=== PATIENT | male | born 1955 | race Caucasian/White ===

== ENCOUNTER → 2016-08-03 | Outpatient (CLI) | payer MEDICARE ==
--- NOTE | 2016-08-03 10:55 | XR ---
EXAMINATION TYPE: XR foot complete LT DATE OF EXAM: 08/03/2016 COMPARISON: NONE HISTORY: 60-year-old male with pain across the top of the toes, metatarsalgia. TECHNIQUE: 3 views FINDINGS: Severe degenerative changes of the first MTP joint with loss of cartilage and joint space, bone-on-deanne ne abutment, subchondral sclerosis, and bulky marginal spurring, especially dorsally were some fragme nted spurs are also present. Small plantar calcaneal spur. Additional degenerative spurring at the ti biotalar joint. Vascular calcifications suggest underlying diabetes and chronic kidney disease. No ac momo fracture or dislocation. IMPRESSION: 1. Hallux rigidus. 2. Additional osteoarthrosis of the tibiotalar joint. 3. Small plantar calcaneal spur.
== END | disposition home or self-care (01) ==
LOC: RADXRMAIN 08:57
PROVIDERS: ATTEND Family Medicine
DX: M20.22 Hallux rigidus, left foot (principal); M19.072 Primary osteoarthritis, left ankle and foot; M77.32 Calcaneal spur, left foot

== ENCOUNTER 2017-03-01 10:22 | Emergency (ER) | payer MEDICARE ==
[2017-03-01 10:38] VITALS: BP 143/89; PULSE 66; RESP 20; TEMP 99.6
--- NOTE | 2017-03-01 11:08 | ED ---
General Adult HPI - General Chief complaint: Skin/Abscess/Foreign Body Stated complaint: Post surgery/ check wound Time Seen by Provider: 03/01/17 10:51 Source: patient, RN notes reviewed Mode of arrival: ambulatory Limitations: no limitations - History of Present Illness Initial comments: 61-year-old male who is one month post left hip repaired by Dr. Singh presents to the emergency department with a chief complaint of small pocket noted to the left hip. Patient states that he noticed that there was a swallow pus pocket that drained yesterday and then today he noticed a small area of pus again she thought that he should be seen. He denies any fever chills. Denies any specific pain to the area. He denies any history of infection to the hip. He denies any cough cold. He called his orthopedic doctor and they referred him here. He states that he is not currently having any other symptoms. No pain with movement. Patient denies any recent fever, chills, shortness of breath , chest pain, back pain, abdominal pain, nausea vomiting, numbness or tingling, dysuria or hematuria, constipation or diarrhea, headaches or visual changes, or any other current symptoms. - Related Data Home Medications Medication Instructions Recorded Confirmed Aspirin EC [Ecotrin] 325 mg PO DAILY 08/27/13 01/27/17 Atorvastatin [Lipitor] 80 mg PO HS 08/27/13 01/27/17 Lisinopril [Zestril] 5 mg PO BID 08/27/13 01/27/17 Metoprolol Tartrate [Lopressor] 25 mg PO BID 08/27/13 01/27/17 Insulin NPH Hum/Reg Insulin Hm 10 unit SQ AC-LUNCH 01/12/17 01/27/17 [NovoLIN 70-30 100 UNIT/ML VIAL] Insulin NPH Hum/Reg Insulin Hm 55 unit SQ AC-BRKFST 01/12/17 01/27/17 [NovoLIN 70-30 100 UNIT/ML VIAL] Insulin NPH Hum/Reg Insulin Hm 65 unit SQ AC-SUPPER 01/12/17 01/27/17 [NovoLIN 70-30 100 UNIT/ML VIAL] Previous Rx's Medication Instructions Recorded Cephalexin [Keflex] 500 mg PO Q6HR #40 cap 03/01/17 Sulfamethox-Tmp 800-160Mg [Bactrim 2 each PO Q12HR #56 tab 03/01/17 DS 800-160 mg] Allergies Allergy/AdvReac Type Severity Reaction Status Date / Time No Known Allergies Allergy Verified 03/01/17 10:38 Review of Systems ROS Statement: Those systems with pertinent positive or pertinent negative responses have been documented in the HPI. ROS Other: All systems not noted in ROS Statement are negative. Past Medical History Past Medical History: Diabetes Mellitus, Hyperlipidemia, Hypertension, Myocardial Infarction ([place]), Osteoarthritis (OA), Sleep Apnea/CPAP/BIPAP Additional Past Medical History / Comment(s): supposed to use CPAP Last Myocardial Infarction Date:: 2006 History of Any Multi-Drug Resistant Organisms: None Reported Past Surgical History: Heart Catheterization, Hernia Repair, Orthopedic Surgery Additional Past Surgical History / Comment(s): right total hip replacement, carpal tunnel, arthroscopy, hemorrhoidectomy, triple bypass 2006, zora fundoplasty Past Anesthesia/Blood Transfusion Reactions: Previous Problems w/ Anesthesia Additional Past Anesthesia/Blood Transfusion Reaction / Comment(s): some kind of problem w/intubation w/cabg, but has had surgery since w/no problems Past Psychological History: No Psychological Hx Reported Smoking Status: Never smoker Past Alcohol Use History: None Reported Past Drug Use History: None Reported - Past Family History Mother Family Medical History: Cancer Brother(s) Family Medical History: Cancer General Exam - General Exam Comments Initial Comments: General: The patient is awake and alert, in no distress, and does not appear acutely ill. Neck: The neck is supple, there is no tenderness. Cardiovascular: There is a regular rate and rhythm. No murmur, rub or gallop is appreciated. Respiratory: Lungs are clear to auscultation, respirations are non-labored, breath sounds are equal. No wheezes, stridor, rales, or rhonchi. Musculoskeletal: Sensation intact with 2+ pulses throughout the left lower extremity. Patient has full range of motion of the left hip. There does appear to be a small purulent area to the left hip incision. No fluctuation surrounding the area. Appears to be very superficial. No associated erythema or induration. Neurological: CN II-XII intact, There are no obvious motor or sensory deficits. Coordination appears grossly intact. Speech is normal. Skin: Skin is warm and dry and no rashes or lesions are noted. Psychiatric: Normal mood and affect. Limitations: no limitations Course Vital Signs 03/01/17 10:35 Temperature 99.6 F Pulse Rate 66 Respiratory 20 Rate Blood Pressure 143/89 O2 Sat by Pulse 97 Oximetry Medical Decision Making - Medical Decision Making 61-year-old male presents to the emergency department with a chief complaint of left hip pain. Patient does appear to have a small infection. He doesn't appear to be minor at this time. There is no associated induration. With a Q- tip the pus was removed. At this time we will start the patient on Keflex and Bactrim. A culture was sent. We discussed follow-up with his orthopedic Dr. return parameters all questions. Patient stated the Giorgio is given this plan. At this time he will be discharged home. Disposition Clinical Impression: Superficial incisional surgical site infection Disposition: HOME SELF-CARE Condition: Stable Instructions: Surgical Site Infections (ED) Additional Instructions: Please use medication as discussed. Please follow up with family doctor if symptoms have not improved over the next two days. Please return to the emergency room if your symptoms increase or worsen or for any other concerns. Prescriptions: Cephalexin [Keflex] 500 mg PO Q6HR #40 cap Sulfamethox-Tmp 800-160Mg [Bactrim DS 800-160 mg] 2 each PO Q12HR #56 tab Referrals: Nathan Ta DO [Primary Care Provider] - 1-2 days Time of Disposition: 11:07
== END 2017-03-01 11:26 | disposition home or self-care (01) ==
LOC: EC 10:22
DX: T81.4XXA Infection following a procedure, initial encounter (principal); E11.9 Type 2 diabetes mellitus without complications; E78.5 Hyperlipidemia, unspecified; I10 Essential (primary) hypertension; I25.2 Old myocardial infarction; G47.30 Sleep apnea, unspecified; Z99.89 Dependence on other enabling machines and devices; Z79.4 Long term (current) use of insulin; Z79.82 Long term (current) use of aspirin; Z79.899 Other long term (current) drug therapy; Z96.641 Presence of right artificial hip joint; Z98.890 Other specified postprocedural states
CPT/HCPCS: 87070; 87077; 87186; 87205; 99283

== ENCOUNTER → 2018-01-17 | Outpatient (CLI) | payer MEDICARE ==
--- NOTE | 2018-01-17 11:43 | XR ---
EXAMINATION TYPE: XR chest 2V DATE OF EXAM: 01/17/2018 COMPARISON: Chest x-ray August 22, 2013. HISTORY: Dyspnea and shortness of breath. TECHNIQUE: Frontal and lateral views of the chest are obtained. FINDINGS: Left basilar opacity remains present. Overlying sternal wires and mediastinal clips are re demonstrated. There is no new suspicious focal air space opacity or pneumothorax seen. New small to t iny bilateral pleural effusions are appreciated best on lateral view with blunting of bilateral poste rior costophrenic angles The cardiac silhouette size remains within normal limits. Epicardial pacer w ires are redemonstrated seen best on lateral view. The osseous structures are intact. IMPRESSION: Chronic left basilar scarring and/or atelectasis, new small to tiny bilateral pleural ef fusions noted.
== END | disposition home or self-care (01) ==
LOC: RADXRMAIN 11:08
PROVIDERS: ATTEND Family Medicine
DX: J98.4 Other disorders of lung (principal); R06.02 Shortness of breath; R60.9 Edema, unspecified; I25.10 Atherosclerotic heart disease of native coronary artery without angina pectoris
CPT/HCPCS: 71046

== ENCOUNTER 2018-02-06 11:27 | Inpatient (IN) | payer MEDICARE ==
[2018-02-06] MEDS ORDERED: SODIUM CHLORIDE 0.9% 500 ML 500 ML IV STA (11:37)
--- NOTE | 2018-02-06 11:45 | ED ---
General Adult HPI - General Stated complaint: facial droop, slurred speech Time Seen by Provider: 02/06/18 11:30 Source: RN notes reviewed - History of Present Illness Initial comments: This is a 62-year-old male who presents emergency department with past medical history significant for diabetes hypertension or previous bypass surgery. Patient comes in today because he started experiencing slurred speech and left- sided facial droop approximate half hour prior to arrival. Patient denies any focal weakness or numbness. Patient patient states the last 2 weeks he has been dealing with a headache but is no different today. Patient denies any difficulty ambulating. Patient denies any chest pain palpitations difficulty breathing. Patient denies any back pain. Patient has no abdominal pain he denies any nausea or vomiting. Patient denies any recent fever chills or cough. - Related Data Home Medications Medication Instructions Recorded Confirmed Aspirin EC [Ecotrin] 325 mg PO BID 08/27/13 02/06/18 Atorvastatin [Lipitor] 80 mg PO HS 08/27/13 02/06/18 Metoprolol Tartrate [Lopressor] 25 mg PO BID 08/27/13 02/06/18 Insulin NPH Hum/Reg Insulin Hm 20 unit SQ AC-LUNCH 01/12/17 02/06/18 [NovoLIN 70-30 100 UNIT/ML VIAL] Insulin NPH Hum/Reg Insulin Hm 60 unit SQ AC-BRKFST 01/12/17 02/06/18 [NovoLIN 70-30 100 UNIT/ML VIAL] Insulin NPH Hum/Reg Insulin Hm 60 unit SQ AC-SUPPER 01/12/17 02/06/18 [NovoLIN 70-30 100 UNIT/ML VIAL] Lisinopril [Zestril] 10 mg PO BID 03/01/17 02/06/18 Furosemide [Lasix] 40 mg PO DAILY 02/06/18 02/06/18 Allergies Allergy/AdvReac Type Severity Reaction Status Date / Time No Known Allergies Allergy Verified 02/06/18 12:03 Review of Systems ROS Statement: Those systems with pertinent positive or pertinent negative responses have been documented in the HPI. ROS Other: All systems not noted in ROS Statement are negative. Past Medical History Past Medical History: Diabetes Mellitus, Hyperlipidemia, Hypertension, Myocardial Infarction ([place]), Osteoarthritis (OA), Sleep Apnea/CPAP/BIPAP Additional Past Medical History / Comment(s): supposed to use CPAP Last Myocardial Infarction Date:: 2006 History of Any Multi-Drug Resistant Organisms: None Reported Past Surgical History: Heart Catheterization, Hernia Repair, Orthopedic Surgery Additional Past Surgical History / Comment(s): right total hip replacement, carpal tunnel, arthroscopy, hemorrhoidectomy, triple bypass 2006, zora fundoplasty Past Anesthesia/Blood Transfusion Reactions: Previous Problems w/ Anesthesia Additional Past Anesthesia/Blood Transfusion Reaction / Comment(s): some kind of problem w/intubation w/cabg, but has had surgery since w/no problems Past Psychological History: No Psychological Hx Reported Smoking Status: Never smoker Past Alcohol Use History: None Reported Past Drug Use History: None Reported - Past Family History Mother Family Medical History: Cancer Brother(s) Family Medical History: Cancer General Exam - General Exam Comments Initial Comments: GENERAL: Patient is well-developed and well-nourished. Patient is nontoxic and well- hydrated and is in mild distress. ENT: Neck is soft and supple. No significant lymphadenopathy is noted. Oropharynx is clear. Moist mucous membranes. Neck has full range of motion without eliciting any pain. EYES: The sclera were anicteric and conjunctiva were pink and moist. Extraocular movements were intact and pupils were equal round and reactive to light. Eyelids were unremarkable. PULMONARY: Unlabored respirations. Good breath sounds bilaterally. No audible rales rhonchi or wheezing was noted. CARDIOVASCULAR: There is a regular rate and rhythm without any murmurs gallops or rubs. Bilateral DP pulses equal ABDOMEN: Soft and nontender with normal bowel sounds. No palpable organomegaly was noted. There is no palpable pulsatile mass. SKIN: Skin is clear with no lesions or rashes and otherwise unremarkable. NEUROLOGIC: Patient is alert and oriented x3. Patient has some left-sided facial droop and slight slurred speech though it seems to resolve while talking to him. However the facial droop remains per patient has no focal weakness in either arm or leg and no decreased sensation. Patient's cerebellar testing finger to nose was normal bilaterally. MUSCULOSKELETAL: Normal extremities with adequate strength and full range of motion. No lower extremity swelling or edema. No calf tenderness. LYMPHATICS: No significant lymphadenopathy is noted PSYCHIATRIC: Normal psychiatric evaluation. Course Vital Signs 02/06/18 11:52 Temperature 98.1 F Pulse Rate 59 L Respiratory 18 Rate Blood Pressure 177/95 O2 Sat by Pulse 98 Oximetry Medical Decision Making - Medical Decision Making EKG shows a sinus rhythm at 59 bpm TN interval is 316 QRS is 96 Q-T intervals 410 QTC is 45. Patient's EKG shows no ST segment elevation or depression. I called a code stroke symptoms I saw the patient. I spoke with the neuro interventional states he reviewed the CT of the brain and CTA and did not believe TPA was indicated he just wanted aspirin and Plavix. Patient's CT of the brain shows no acute abnormality. CTA was reviewed by the neuro interventional states this point and he did not see any significant stenosis. Neuro interventional is was Dr. Keane I spoke with Dr. Shaq New agreed to admit the patient admitted the patient I consult the neurology I continue aspirin and Plavix on the floor After the patient was admitted I was called back into the room because the patient was having some slight weird sensation to his left eye when I evaluated him he was unable to close it as firmly as his right eye. 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 - Lab Data Result diagrams: 02/06/18 11:40 02/06/18 11:40 Lab Results 02/06/18 02/06/18 02/06/18 Range/Units 11:40 11:40 11:40 WBC 8.0 (3.8-10.6) k/uL RBC 4.96 (4.30-5.90) m/uL Hgb 14.8 (13.0-17.5) gm/dL Hct 44.7 (39.0-53.0) % MCV 90.1 (80.0-100.0) fL MCH 29.8 (25.0-35.0) pg MCHC 33.0 (31.0-37.0) g/dL RDW 12.9 (11.5-15.5) % Plt Count 261 (150-450) k/uL Neutrophils % 58 % Lymphocytes % 28 % Monocytes % 6 % Eosinophils % 6 % Basophils % 1 % Neutrophils # 4.6 (1.3-7.7) k/uL Lymphocytes # 2.2 (1.0-4.8) k/uL Monocytes # 0.5 (0-1.0) k/uL Eosinophils # 0.5 (0-0.7) k/uL Basophils # 0.1 (0-0.2) k/uL PT (9.0-12.0) sec INR (<1.2) APTT (22.0-30.0) sec Sodium 141 (137-145) mmol/L Potassium 4.5 (3.5-5.1) mmol/L Chloride 108 H (98-107) mmol/L Carbon Dioxide 22 (22-30) mmol/L Anion Gap 11 mmol/L BUN 21 H (9-20) mg/dL Creatinine 0.69 (0.66-1.25) mg/dL Est GFR (CKD-EPI)AfAm >90 (>60 ml/min/1.73 sqM) Est GFR (CKD-EPI)NonAf >90 (>60 ml/min/1.73 sqM) Glucose 216 H (74-99) mg/dL Calcium 9.6 (8.4-10.2) mg/dL Total Bilirubin 0.8 (0.2-1.3) mg/dL AST 26 (17-59) U/L ALT 22 (21-72) U/L Alkaline Phosphatase 87 (38-126) U/L Total Creatine Kinase 113 (55-170) U/L CK-MB (CK-2) 2.0 (0.0-2.4) ng/mL CK-MB (CK-2) Rel Index 1.8 Troponin I <0.012 (0.000-0.034) ng/mL Total Protein 7.6 (6.3-8.2) g/dL Albumin 4.2 (3.5-5.0) g/dL 02/06/18 Range/Units 11:40 WBC (3.8-10.6) k/uL RBC (4.30-5.90) m/uL Hgb (13.0-17.5) gm/dL Hct (39.0-53.0) % MCV (80.0-100.0) fL MCH (25.0-35.0) pg MCHC (31.0-37.0) g/dL RDW (11.5-15.5) % Plt Count (150-450) k/uL Neutrophils % % Lymphocytes % % Monocytes % % Eosinophils % % Basophils % % Neutrophils # (1.3-7.7) k/uL Lymphocytes # (1.0-4.8) k/uL Monocytes # (0-1.0) k/uL Eosinophils # (0-0.7) k/uL Basophils # (0-0.2) k/uL PT 9.7 (9.0-12.0) sec INR 0.9 (<1.2) APTT 23.4 (22.0-30.0) sec Sodium (137-145) mmol/L Potassium (3.5-5.1) mmol/L Chloride (98-107) mmol/L Carbon Dioxide (22-30) mmol/L Anion Gap mmol/L BUN (9-20) mg/dL Creatinine (0.66-1.25) mg/dL Est GFR (CKD-EPI)AfAm (>60 ml/min/1.73 sqM) Est GFR (CKD-EPI)NonAf (>60 ml/min/1.73 sqM) Glucose (74-99) mg/dL Calcium (8.4-10.2) mg/dL Total Bilirubin (0.2-1.3) mg/dL AST (17-59) U/L ALT (21-72) U/L Alkaline Phosphatase (38-126) U/L Total Creatine Kinase (55-170) U/L CK-MB (CK-2) (0.0-2.4) ng/mL CK-MB (CK-2) Rel Index Troponin I (0.000-0.034) ng/mL Total Protein (6.3-8.2) g/dL Albumin (3.5-5.0) g/dL Disposition Clinical Impression: Cerebrovascular accident Disposition: ADMITTED IP TO THIS HOSP Referrals: Nathan Ta DO [Primary Care Provider] - 1-2 days Time of Disposition: 12:45
--- NOTE | 2018-02-06 12:10 | XR ---
EXAMINATION TYPE: XR chest 2V DATE OF EXAM: 02/06/2018 COMPARISON: 01/17/2018 INDICATION: Altered mental status TECHNIQUE: Frontal and lateral views of the chest are obtained. FINDINGS: The heart size is normal. The pulmonary vasculature is normal. Some streak atelectasis is at the left base. Lungs otherwise appear clear. Prior CABG is evident. IMPRESSION: 1. Mild streak atelectasis left lung base
--- NOTE | 2018-02-06 12:17 | CT ---
EXAMINATION TYPE: CT brain wo con for TPA DATE OF EXAM: 02/06/2018 COMPARISON: None INDICATION: Facial droop, slurred speech DLP: 1158 mGycm, Automated exposure control for dose reduction was used. CONTRAST: None CT of the brain is performed utilizing 3 mm thick sections through the posterior fossa and 3 mm thick sections through the remaining calvarium. Study is performed within 24 hours of arrival to the hosp ital. No abnormal hyperdensity is present to suggest an acute intracranial hemorrhage. No mass lesion is evident. No acute infarcts are evident. Ventricles and sulci are appropriate for the patient age. Paranasal sinuses and mastoid air cells within the [id number] are clear. IMPRESSIONS: 1. No acute intracranial process.
[2018-02-06 12:18] LABS: Basophils # (A) 0.1 k/uL (0-0.2); Basophils % (A) 1 %; Eosinophils # (A) 0.5 k/uL (0-0.7); Eosinophils % (A) 6 %; HCT 44.7 % (39.0-53.0); HGB 14.8 gm/dL (13.0-17.5); Lymphocytes # (A) 2.2 k/uL (1.0-4.8); Lymphocytes % (A) 28 %; MCH 29.8 pg (25.0-35.0); MCV 90.1 fL (80.0-100.0); Mean Platelet Volume 7.1; Monocytes # (A) 0.5 k/uL (0-1.0); Monocytes % (A) 6 %; Neutrophils # (A) 4.6 k/uL (1.3-7.7); Neutrophils % (A) 58 %; Platelet Count 261 k/uL (150-450); RBC 4.96 m/uL (4.30-5.90); RDW 12.9 % (11.5-15.5)
[2018-02-06 12:35] LABS: ALT 22 U/L (21-72); AST 26 U/L (17-59); Albumin 4.2 g/dL (3.5-5.0); Alkaline Phosphatase 87 U/L (38-126); Anion Gap 11 mmol/L; Blood Urea Nitrogen 21 mg/dL (9-20); Calcium 9.6 mg/dL (8.4-10.2); Carbon Dioxide 22 mmol/L (22-30); Chloride 108 mmol/L (98-107); Glucose 216 mg/dL (74-99); Potassium 4.5 mmol/L (3.5-5.1); Sodium 141 mmol/L (137-145); Total Bilirubin 0.8 mg/dL (0.2-1.3); Total Protein 7.6 g/dL (6.3-8.2)
[2018-02-06 12:36] LABS: Creatine Kinase 113 U/L (55-170); INR 0.9 (<1.2); Partial Thromboplastin Time 23.4 sec (22.0-30.0); Prothrombin Time 9.7 sec (9.0-12.0)
[2018-02-06] MEDS ORDERED: CLOPIDOGREL 75 MG TAB PO STA (12:47)
[2018-02-06 12:49] LABS: Troponin I <0.012 ng/mL (0.000-0.034)
--- NOTE | 2018-02-06 12:59 | CT ---
EXAMINATION TYPE: CT angio head neck DATE OF EXAM: 02/06/2018 12:41 PM COMPARISON: HISTORY: CODE STROKE, facial droop and slurred speech CT DLP: 568 mGycm Automated exposure control for dose reduction was used. TECHNIQUE: Performed without and with IV Contrast, patient injected with 65 mL of Isovue 370. Three-D reconstructed images on a separate computer by the technologist are presented.. FINDINGS: Coronary artery calcification is noted. Portions of the thyroid visualized normal. Subglottic airway is unremarkable. Parapharyngeal spaces are normal. Left vertebral artery appears normal. Right vertebral artery is not identified. Carotid bifurcations: Atheromatous plaquing with calcification is at the bilateral carotid bifurcatio ns. No significant flow-limiting stenosis of the right internal carotid arteries evident. Atheromatou s plaquing is present in the left common carotid artery bifurcation without significant stenosis. [place]: Internal carotid arteries bifurcate into A1 and M1 segments. The A2 segments proxim ally appear unremarkable. Right posterior communicating artery is patent. A left posterior communicat ing artery appears to be patent as well. Anterior communicating artery appears to be present. On the source images the distal right vertebral artery is patent. The vertebral artery within the right fora men however is not patent. IMPRESSION: 1. NO FLOW-LIMITING STENOSIS BILATERAL CAROTID BIFURCATION. 2. [place] WITHIN NORMAL LIMITS. 3. PROXIMAL OBSTRUCTION OF THE RIGHT VERTEBRAL ARTERY. DISTAL RIGHT VERTEBRAL ARTERY IS PATENT WITHIN THE CALVARIUM BUT IS NOT IDENTIFIED WITHIN THE CERVICAL VERTEBRAL FORAMEN.
[2018-02-06] MEDS: ASPIRIN 325 MG TAB PO STA ×2 (13:14→14:11)
[2018-02-06 15:37] LABS: Glucose,Whole Blood 89 mg/dL (75-99)
[2018-02-06 16:13] LABS: Glucose,Whole Blood 224 mg/dL (75-99)
[2018-02-06] MEDS: valACYclovir HCL 1,000 MG TABLET PO SCH (19:02)
[2018-02-06] MEDS: INSULIN ASPART 100 UNIT/ML 1 ML 10 ML VIAL SQ SCH (20:12)
--- NOTE | 2018-02-06 20:15 | P.CNNES ---
History of Present Illness Consult date: 02/06/18 Reason for Consult: Patient admitted with left facial droop and slurred speech, possible stroke History of Present Illness: This patient is a 62-year-old right-handed white male who was in his usual state of health early this morning. He was out with his daughter and apparently while sitting at a dining [place] his daughter noticed suddenly that he developed left-sided facial droop. She was very concerned as his speech was also giving him great deal of difficulty knee was having word finding difficulties. He was also complaining of a headache which he had been dealing with for the past 2 weeks. Daughter was very concerned and decided to bring him directly to the emergency room at [facility] for further evaluation. He was seen in the ER by Dr. Lopez. He was sent for a computed tomography scan of the brain as well as a CTA angiogram of the head and neck. A code stroke was initiated in the ER by Dr. Lopez. The CT scan of the brain revealed no acute intracranial process. CTA angiogram of the head and neck revealed no evidence of significant stenosis in the carotid bifurcation. [place] was normal limits. Question of right vertebral artery obstruction was noted. Dr. Lopez did contact the neuro interventional is Dr. Keane regarding possible TPA intervention. Dr. Keane did review this CT of the brain and CTA angiogram of the head and neck and it was decided the patient was not a candidate for TPA. He was recommended to start on Plavix and aspirin and admitted for a full stroke evaluation. The patient has multiple stroke risk factors including uncontrolled hypertension and uncontrolled diabetes mellitus. His most recent hemoglobin A1c was noted to be 13.7. He is on insulin therapy. He states his cholesterol is also been elevated and he is taking Lipitor 80 mg daily. The patient's symptoms of facial droop seem to improve in the ER. He did notice some difficulty with his left eyelid not closing properly but this has also improved since admission. Dr. Lopez was also considering possibility of early Pollard's palsy and was considering possibly to start Valtrex with the patient. Since his symptoms are not strongly suggesting Pollard's palsy at this time we would recommend a hold a Valtrex. We have recommended the patient undergo a complete stroke evaluation. He should be maintained on Plavix and aspirin for secondary stroke prevention. We will check his stroke risk factors including his diabetes and hyperlipidemia. His blood pressure also has been running on the high side of normal and we would recommend a cardiology consultation for him. Apparently he is scheduled to see Dr. José in the outpatient cardiology clinic for a stress test next week. We will continue to follow his progress closely during this admission. His symptoms of left-sided facial droop and slurred speech seem to have improved however daughter still feels his speech is not his normal baseline. We have recommended the patient to undergo MRI of the brain for further evaluation of possible stroke. According to the daughter he may not be able to have an MRI as he has some chest leads in his history of having and cardiac bypass surgery in the past. We have asked the nursing staff to contact MRI to see if he is compatible to go for MRI of the brain for further assessment of stroke. The patient otherwise seems to be doing well this evening. We will continue close monitoring of his condition. Neurology is now been consulted for further evaluation and recommendations. Review of Systems Constitutional: Denies chills, Denies fever Eyes: denies blurred vision, denies pain Ears, nose, mouth and throat: Denies headache, Denies sore throat Cardiovascular: Denies chest pain, Denies shortness of breath Respiratory: Denies cough Gastrointestinal: Denies abdominal pain, Denies diarrhea, Denies nausea, Denies vomiting Musculoskeletal: Denies myalgias Integumentary: Denies pruritus, Denies rash Neurological: Reports change in speech, Reports hearing difficulties, Reports motor disturbance, Reports paresthesias, Reports sensory deficit, Reports tingling, Denies numbness, Denies weakness Psychiatric: Denies anxiety, Denies depression Endocrine: Denies fatigue, Denies weight change Past Medical History Past Medical History: Diabetes Mellitus, Hyperlipidemia, Hypertension, Myocardial Infarction ([place]), Osteoarthritis ([place]), Sleep Apnea/CPAP/BIPAP Additional Past Medical History / Comment(s): supposed to use CPAP Last Myocardial Infarction Date:: 2006 History of Any Multi-Drug Resistant Organisms: None Reported Past Surgical History: Heart Catheterization, Hernia Repair, Orthopedic Surgery Additional Past Surgical History / Comment(s): right total hip replacement, carpal tunnel, arthroscopy, hemorrhoidectomy, triple bypass 2006, zora fundoplasty Past Anesthesia/Blood Transfusion Reactions: Previous Problems w/ Anesthesia Additional Past Anesthesia/Blood Transfusion Reaction / Comment(s): some kind of problem w/intubation w/cabg, but has had surgery since w/no problems Past Psychological History: No Psychological Hx Reported Smoking Status: Never smoker Past Alcohol Use History: None Reported Past Drug Use History: None Reported - Past Family History Mother Family Medical History: Cancer Brother(s) Family Medical History: Cancer Medications and Allergies Home Medications Medication Instructions Recorded Confirmed Type Aspirin EC [Ecotrin] 325 mg PO BID 08/27/13 02/06/18 History Atorvastatin [Lipitor] 80 mg PO HS 08/27/13 02/06/18 History Metoprolol Tartrate [Lopressor] 25 mg PO BID 08/27/13 02/06/18 History Insulin NPH Hum/Reg Insulin Hm 20 unit SQ AC-LUNCH 01/12/17 02/06/18 History [NovoLIN 70-30 100 UNIT/ML VIAL] Insulin NPH Hum/Reg Insulin Hm 60 unit SQ AC-BRKFST 01/12/17 02/06/18 History [NovoLIN 70-30 100 UNIT/ML VIAL] Insulin NPH Hum/Reg Insulin Hm 60 unit SQ AC-SUPPER 01/12/17 02/06/18 History [NovoLIN 70-30 100 UNIT/ML VIAL] Lisinopril [Zestril] 10 mg PO BID 03/01/17 02/06/18 History Furosemide [Lasix] 40 mg PO DAILY 02/06/18 02/06/18 History Allergies Allergy/AdvReac Type Severity Reaction Status Date / Time No Known Allergies Allergy Verified 02/06/18 12:03 Physical Examination - Vital Signs Vital Signs: Vital Signs Temp Pulse Resp BP BP Pulse Ox 02/06/18 17:52 98 F 61 16 138/78 98 02/06/18 17:34 98.2 F 64 18 140/77 98 02/06/18 16:15 98.1 F 61 16 148/77 98 02/06/18 16:00 18 186/93 95 02/06/18 15:45 98.6 F 62 16 144/77 98 02/06/18 14:15 97.8 F 56 L 16 145/84 97 02/06/18 11:52 98.1 F 59 L 18 177/95 98 Intake and Output 02/06/18 02/06/18 02/06/18 06:59 14:59 22:59 Other: Weight 104.326 kg - Constitutional General appearance: average body habitus, cooperative - EENT EENT: PERRL, mucous membranes moist - Respiratory Respiratory: lungs clear, normal breath sounds - Cardiovascular Cardiovascular: regular rate, normal S1, normal S2 Extremities: no peripheral edema bilaterally - Gastrointestinal Gastrointestinal: normoactive bowel sounds - Integumentary Integumentary: normal - Neurologic Cranial nerve examination: PERRL, EOMI, VFF, V1/V2/V3 grossly intact, tongue midline, intact gag reflex, intact corneal reflex, facial droop (There is slight left-sided facial droop at the angle of the mouth. Sparing of the frontalis muscle on the left upper face is noted.), normal palatal elevation Speech examination: intact Sensorimotor examination: intact Motor examination - right side: 4/5: biceps, triceps, wrist flexion, wrist extension, tattooer, hip flexors, knee extensors, dorsiflexion, toe extension (EHL) , plantarflexion Motor examination - left side: 4/5: biceps, triceps, wrist flexion, wrist extension, tattooer, hip flexors, knee extensors, dorsiflexion, toe extension (EHL) , plantarflexion Detailed sensory examination: intact Reflex and gait examination: intact Reflexes: 1+: ankle, bicep, knee, tricep - Musculoskeletal Musculoskeletal: no pain - Psychiatric Psychiatric: mood/affect appropriate, cooperative Results - Laboratory Findings CBC and BMP: 02/06/18 11:40 02/06/18 11:40 Abnormal Lab Findings: Abnormal Labs 02/06/18 02/06/18 11:37 11:40 Chloride 108 H BUN 21 H Glucose 216 H POC Glucose (mg/dL) 224 H Assessment and Plan (1) TIA (transient ischemic attack) Current Visit: Yes Status: Acute Code(s): G45.9 - TRANSIENT CEREBRAL ISCHEMIC ATTACK, UNSPECIFIED SNOMED Code(s): 755410252 (2) Acute right MCA stroke Current Visit: Yes Status: Acute Code(s): I63.511 - CEREB INFRC D/T UNSP OCCLS OR STENOS OF RIGHT MID CEREB ART SNOMED Code(s): 353502302 (3) Diabetes mellitus Current Visit: Yes Status: Acute Code(s): E11.9 - TYPE 2 DIABETES MELLITUS WITHOUT COMPLICATIONS SNOMED Code(s): 78199094 (4) Hyperlipidemia Current Visit: Yes Status: Acute Code(s): E78.5 - HYPERLIPIDEMIA, UNSPECIFIED SNOMED Code(s): 11177701 (5) S/P total hip arthroplasty Current Visit: No Status: Acute Code(s): Z96.649 - PRESENCE OF UNSPECIFIED ARTIFICIAL HIP JOINT SNOMED Code(s): 313318764829 Plan: This patient is a 62-year-old male who apparently was in his usual state of health until 11 AM this morning. He was with his daughter and suddenly developed acute left-sided facial droop and slurring of his speech. Daughter immediately decided to bring him to the emergency room. Patient was evaluated in the ER and was noted to have evidence of uncontrolled hypertension. A code stroke was initiated in the emergency room and the neuro interventional list Dr. Keane was contacted. He was evaluated by the neuro interventionalist Dr. Keane who reviewed his computed tomography scan of the brain and CTA angiogram of the head and neck. It was decided the patient was not a candidate for any intervention with thrombolytic therapy. It was recommended he be placed on Plavix and aspirin and admitted for full stroke workup. Patient neurological exam findings today I have improved since admission. He still has slight facial asymmetry on his left side. He has slight decrease in blink response in the left eyelid but no clear and obvious finding of an acute Pollard's palsy on the left face at this time. We have recommended the patient undergo a complete stroke evaluation for possible right hemispheric TIA versus stroke. Apparently he has some chest leads that may limit him from having an MRI but we will request MRI to be done if possible. We instructed the nursing staff to check with MRI with her he is compatible to go for MRI of the brain for further evaluation of stroke. The patient apparently has been having uncontrolled hypertension as well as uncontrolled diabetes mellitus. His most recent hemoglobin A1c was 13.7. We have recommended that he continue close monitoring of his blood sugars and possible adjustment of his medications with his program control analyst. Patient's blood pressure also was elevated. We've requested a cardiology consultation as he is to be followed up with Dr. José in the outpatient cardiology clinic for a stress test. Blood pressure seems to be running high today. Patient should be maintained on Plavix and aspirin for secondary stroke prevention. We will continue to monitor to see if he does show more evidence of an acute left Pollard's palsy tomorrow and if that be the case he may be started on Valtrex. We will continue close neurological follow- up for the patient during this admission. Case was discussed at length with the patient as well as his and daughter who were at bedside. All their questions were answered. They are aware of his guarded condition. We will continue close neurological follow-up of this patient during this admission. Time with Patient: Greater than 30
[2018-02-06 21:26] LABS: Glucose,Whole Blood 157 mg/dL (75-99)
[2018-02-06] MEDS: ACETAMINOPHEN TAB 325 MG TAB PO PRN (22:28)
[2018-02-07 06:50] LABS: Glucose,Whole Blood 131 mg/dL (75-99)
[2018-02-07] MEDS: INSULIN ASPART 100 UNIT/ML 1 ML 10 ML VIAL SQ SCH ×3 (07:09→17:47)
[2018-02-07 07:23] LABS: Cholesterol 150 mg/dL (<200); HDL Cholesterol 38 mg/dL (40-60); LDL Cholesterol,Calculated 90 mg/dL (0-99); Triglycerides 111 mg/dL (<150)
[2018-02-07] MEDS: valACYclovir HCL 1,000 MG TABLET PO SCH ×4 (08:40→20:31)
[2018-02-07] MEDS: CLOPIDOGREL 75 MG TAB PO SCH (08:44)
[2018-02-07] MEDS: ASPIRIN 325 MG TAB PO SCH (08:45)
[2018-02-07 11:47] LABS: Glucose,Whole Blood 147 mg/dL (75-99)
[2018-02-07] MEDS: ACETAMINOPHEN TAB 325 MG TAB PO PRN ×2 (13:51→22:23)
[2018-02-07] MEDS ORDERED: LOSARTAN 50 MG TAB PO SCH (16:00)
--- NOTE | 2018-02-07 16:31 | P.PN ---
Subjective Progress Note Date: 02/07/18 This patient is seen in Neurology follow-up for recent left sided weakness and slurred speech with possible TIA vs. stroke. The patient is resting comfortably at bedside today. He still has some slight facial asymmetry on his left side of the face. He was started on Valtrex this morning for presumptive early findings of Pollard's palsy. Once again he is being evaluated for possible TIA versus stroke. We've recommended MRI of the brain however he may not be able to have the MRI as he does have chest leads. He is to be cleared by MRI safety protocol tomorrow to see if he may be able to have MRI at all. We reviewed his computed tomography scan of the brain and CT angiogram results once again with his and daughter were at bedside. CAT scan of the brain revealed no acute process or acute stroke. CT angiogram of the head and neck revealed no significant carotid artery bifurcation. [place] was normal. There was proximal obstruction of the right vertebral artery noted exact significance still not clear even this patient's clinical findings. If the patient is unable to have MRI of the brain tomorrow would consider follow- up CAT scan of the brain. Clinically the patient is showing slight improvement with left-sided weakness but facial symptoms still persist. As noted he has been started on Valtrex this morning. He is to continue on Plavix and aspirin for dual platelet therapy. He is to be evaluated by cardiology today and we will await their further recommendations. He is scheduled to have a stress test done as outpatient and we will await further recommendations per cardiology. Blood pressure seems to be doing somewhat better today. Objective - Vital Signs Vital signs: Vital Signs Temp 97.5 F L 02/07/18 04:00 Pulse 69 02/07/18 04:00 Resp 20 02/07/18 04:00 BP 152/93 02/07/18 04:00 Pulse Ox 96 02/07/18 04:00 Intake & Output 02/06/18 02/07/18 02/07/18 18:59 06:59 18:59 Intake Total 870 180 Balance 870 180 Weight 104.326 kg 104.5 kg Intake: Oral 870 180 Other: Voiding Method Toilet # Voids 2 - Exam Physical Examination: PHYSICAL EXAMINATION: Patient is resting comfortably in bed. VITAL SIGNS: Blood pressure is [160/100]. Heart rate is [74]. Respiration is [18 ]. Temperature is [97.0]. HEENT: Head is atraumatic, neck is supple, there were no carotid bruits. CHEST: Lungs are clear to auscultation and percussion. CARDIAC: S1, S2 normal rate and rhythm. There is no murmur. ABDOMEN: Soft and nontender. Bowel sounds are present. EXTREMITIES: There is no pedal edema. Peripheral pulses are present. Neurological examination: Patient's neurological examination is unchanged from yesterday. He does seem to have slight decreased eye blink on the left eyelid. Facial asymmetry slightly improved on his left side. His remaining neurological examination is nonfocal. - Labs CBC & Chem 7: 02/06/18 11:40 02/06/18 11:40 Labs: Abnormal Lab Results - Last 24 Hours (Table) 02/06/18 02/06/18 02/07/18 Range/Units 11:37 21:24 05:59 POC Glucose (mg/dL) 224 H 157 H (75-99) mg/dL HDL Cholesterol 38 L (40-60) mg/dL 02/07/18 02/07/18 Range/Units 06:47 11:36 POC Glucose (mg/dL) 131 H 147 H (75-99) mg/dL HDL Cholesterol (40-60) mg/dL Assessment and Plan (1) TIA (transient ischemic attack) Current Visit: Yes Status: Acute Code(s): G45.9 - TRANSIENT CEREBRAL ISCHEMIC ATTACK, UNSPECIFIED SNOMED Code(s): 097548467 (2) Acute right MCA stroke Current Visit: Yes Status: Acute Code(s): I63.511 - CEREB INFRC D/T UNSP OCCLS OR STENOS OF RIGHT MID CEREB ART SNOMED Code(s): 956785053 (3) Diabetes mellitus Current Visit: Yes Status: Acute Code(s): E11.9 - TYPE 2 DIABETES MELLITUS WITHOUT COMPLICATIONS SNOMED Code(s): 12105788 (4) Hyperlipidemia Current Visit: Yes Status: Acute Code(s): E78.5 - HYPERLIPIDEMIA, UNSPECIFIED SNOMED Code(s): 79541449 (5) S/P total hip arthroplasty Current Visit: No Status: Acute Code(s): Z96.649 - PRESENCE OF UNSPECIFIED ARTIFICIAL HIP JOINT SNOMED Code(s): 849172522937 Plan: This patient is a 62-year-old male being evaluated for possible right hemispheric TIA versus stroke. He underwent computed tomography scan of the brain and CT angiogram of the head and neck which was once again reviewed with the patient and his and daughter at bedside today. We are trying to obtain a MRI of the brain but he will need to be cleared by MRI safety protocol as he has chest wires. He is to continue on dual platelet therapy with Plavix and aspirin at this time. He was started on Valtrex this morning as he still has questionable early Pollard's features on the left side of his face. We've explained this would not be harmful for him and we will keep him on this as we proceed with stroke workup for him as well. Case was discussed at length with the patient as well as his and daughter at bedside. All of their questions were answered. They're aware of his guarded condition. If he is unable to have MRI of the brain we may consider follow-up computed tomography scan of the brain even though this is not as sensitive for acute stroke. We will continue close neurological follow-up for the patient. We are waiting further consultation with cardiology regarding his essential hypertension and possible stress testing to be done. We will continue close neurological follow- up for the patient during this admission.
[2018-02-07] MEDS ORDERED: ALPRAZolam 0.25 MG TAB PO PRN (16:59)
[2018-02-07 17:54] LABS: Glucose,Whole Blood 212 mg/dL (75-99)
[2018-02-07] MEDS: INSULN ASP PRT/INSULIN ASPART 100 UNIT/ML 10 ML VIAL SQ SCH (18:28)
--- NOTE | 2018-02-07 18:38 | HP ---
HISTORY AND PHYSICAL DATE OF SERVICE: 02/07/2018 I am covering for Dr. Nathan Ta. CHIEF COMPLAINTS: Left facial droop and slurred speech. HISTORY OF PRESENT ILLNESS: This 65-year-old gentleman with a past medical history of multiple medical problems history of diabetes, hypertension, , DJD, history of cardiac catheterization; being followed by Dr. Nathan Ta in the outpatient setting was admitted with complaints of left-sided facial drooping as well as slurring of speech. Started suddenly and the patient denied any focal weakness, numbness. The patient came to [facility] and was admitted for evaluation and treatment. Neurology evaluation in progress and a CT scan of the brain and as well as CT angiography did not show any acute abnormality, but however, MRI could not be done at this time because of the the patient has. There is no history of fever, rigors. No history of headache, loss of consciousness, seizures at this time. PAST MEDICAL HISTORY: History of diabetes, hypertension, , myocardial infarction, DJD, sleep apnea, history of cardiac catheterization. HOME MEDICATIONS: 1. Lipitor 80 mg q.h.s. 2. Ecotrin 325 mg daily. 3. Lopressor 25 mg daily. 4. Zestril 10 mg. 5. Lasix 40 mg daily. 6. Insulin NPH 70/30, 10 units a.c. lunch, 60 units a.c. supper and 60 units a.c. breakfast. ALLERGIES: None. FAMILY HISTORY: History of cancer in the family. SOCIAL HISTORY: No history of smoking. No alcohol intake. REVIEW OF SYSTEMS: ENT No history of diminished hearing or vision. CARDIOVASCULAR No angina or palpitations. RESPIRATORY As mentioned earlier. GI No nausea, vomiting, or diarrhea. No dysuria. NERVOUS No numbness or weakness. ALLERGY/IMMUNOLOGY No asthma or hayfever. MUSCULOSKELETAL As mentioned earlier. HEMATOLOGY/ONCOLOGY Negative. ENDOCRINE As mentioned earlier. SKIN Negative. CONSTITUTIONAL No history of fever or weight loss. PSYCHIATRIC: As mentioned earlier. PHYSICAL EXAMINATION: Patient is alert and oriented times three. VITAL SIGNS Pulse 64, blood pressure ntd, respiration 20, temperature 98.2, pulse ox 94% on room air. HEENT Conjunctivae clear. Oral mucosa moist. NECK No jugular venous distention. No lymph node enlargement. RESPIRATORY Breath sounds diminished at the bases. Scattered rhonchi and crackles. HEART S1 and S2, muffled. ABDOMEN Soft, no tenderness. No mass palpable. EXTREMITIES No edema, no swelling. NERVOUS Higher functions as mentioned earlier. No nystagmus. Minimal facial deviation on the left side. Facial wrinkling appears to be almost similar at this point. Otherwise, no dysfunction, no focal weakness, no sensory abnormalities. LEGS: No edema. SKIN: No rash. LABS: CBC within normal limits. Chloride is 108, glucose 157, AST is 38, other labs are noted. ASSESSMENT: 1. Facial drooping on the left side with dysarthria. Possible acute stroke involving the right hemisphere. 2. Rule out Pollard's palsy. 3. History of diabetes type 2. 4. Hypertension. 5. Hyperlipidemia. 6. History of myocardial infarction. 7. History degenerative joint disease. 8. History of sleep apnea. 9. History of hernia surgery. 10.History of degenerative joint disease. RECOMMENDATIONS AND DISCUSSION: In this 62-year-old gentleman who presented with multiple complex medical issues , we will monitor the patient closely, continue the current management. Will continue with antiplatelet agents and I would also recommend Lipitor to the current regimen. Full neurovascular work up including 2D echo and carotid Doppler. MRI of the brain if possible. Otherwise, we will repeat CT scan. Closely follow with Neurology. Repeat labs. DVT prophylaxis. Guarded prognosis because of multiple complex medical issues. Further recommendations to follow. MMODL / IJN: [id number] / MTDD
[2018-02-07] MEDS: METOPROLOL TARTRATE 12.5 MG TAB PO SCH (20:30)
[2018-02-07] MEDS: HEPARIN SODIUM,PORCINE 5,000 UNIT/ML 1 ML VIAL SQ SCH (20:30)
[2018-02-07] MEDS: ATORVASTATIN 80 MG TAB PO SCH (20:31)
[2018-02-07 20:33] LABS: Glucose,Whole Blood 147 mg/dL (75-99)
[2018-02-07] MEDS ORDERED: METOPROLOL TARTRATE 25 MG TAB PO SCH (21:00)
[2018-02-07] MEDS ORDERED: LISINOPRIL 10 MG TAB PO SCH (21:00)
[2018-02-07] MEDS ORDERED: METOPROLOL TARTRATE 12.5 MG TAB PO SCH (21:00)
--- NOTE | 2018-02-07 22:41 | CT ---
EXAMINATION TYPE: CT brain wo con DATE OF EXAM: 02/07/2018 COMPARISON: 02/06/2018 HISTORY: CVA, RT facial drooping CT DLP: 1129.4 mGycm Automated exposure control for dose reduction was used. FINDINGS: Ventricles have normal size. There is no mass effect nor midline shift. There is no sign of intracran ial hemorrhage. Calvarium is intact. There is some cortical thickening of the left parietal bone. IMPRESSION: NEGATIVE CT SCAN OF THE BRAIN. NO CHANGE COMPARED TO YESTERDAY.
[2018-02-07 22:52] LABS: Glucose,Whole Blood 60 mg/dL (75-99)
[2018-02-07 22:52] LABS: Glucose,Whole Blood 65 mg/dL (75-99)
[2018-02-07 22:54] LABS: Glucose,Whole Blood 83 mg/dL (75-99)
[2018-02-08 06:08] LABS: Glucose,Whole Blood 65 mg/dL (75-99)
[2018-02-08 06:18] LABS: Basophils # (A) 0.1 k/uL (0-0.2); Basophils % (A) 1 %; Eosinophils # (A) 0.3 k/uL (0-0.7); Eosinophils % (A) 5 %; HCT 41.6 % (39.0-53.0); HGB 13.4 gm/dL (13.0-17.5); Lymphocytes # (A) 2.2 k/uL (1.0-4.8); Lymphocytes % (A) 33 %; MCHC 32.2 g/dL (31.0-37.0); Mean Platelet Volume 6.8; Monocytes # (A) 0.3 k/uL (0-1.0); Monocytes % (A) 5 %; Neutrophils # (A) 3.6 k/uL (1.3-7.7); Neutrophils % (A) 53 %; Platelet Count 254 k/uL (150-450); RBC 4.62 m/uL (4.30-5.90); RDW 12.9 % (11.5-15.5); WBC 6.7 k/uL (3.8-10.6)
[2018-02-08 06:24] LABS: Glucose,Whole Blood 93 mg/dL (75-99)
[2018-02-08] MEDS: INSULIN ASPART 100 UNIT/ML 1 ML 10 ML VIAL SQ SCH ×3 (06:41→18:09)
[2018-02-08 06:49] LABS: Anion Gap 6 mmol/L; Blood Urea Nitrogen 22 mg/dL (9-20); Calcium 9.3 mg/dL (8.4-10.2); Carbon Dioxide 28 mmol/L (22-30); Chloride 107 mmol/L (98-107); Cholesterol 159 mg/dL (<200); Glucose 68 mg/dL (74-99); HDL Cholesterol 40 mg/dL (40-60); LDL Cholesterol,Calculated 101 mg/dL (0-99); Potassium 4.3 mmol/L (3.5-5.1); Sodium 141 mmol/L (137-145); Triglycerides 90 mg/dL (<150)
[2018-02-08] MEDS: PANTOPRAZOLE 40 MG TABLET PO SCH (06:56)
--- NOTE | 2018-02-08 08:40 | P.PN ---
Subjective Progress Note Date: 02/08/18 This patient is seen in Neurology follow-up for recent left sided weakness and slurred speech with possible TIA vs. stroke. The patient is resting comfortably at bedside today. He still has some slight facial asymmetry on his left side of the face. 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 Once again he is being evaluated for possible TIA versus stroke. We've recommended MRI of the brain however he may not be able to have the MRI as he does have chest leads. We did check with MRI today and the patient is unable to have MRI of the brain due to the epicardial chest leads. We did explain to the patient that due to the chest wires and leads he cannot go for MRI. He understands due to the findings of the chest leads from his previous heart surgery. Apparently yesterday evening at about 9:30 PM he had informed the nursing staff last night that he was noticing some right-sided facial changes. He told the nurse that he had noted the change at about 4 PM in the afternoon but did not mention this to nursing staff. Apparently his daughter did notice some changes on the right side of the face which is the unaffected side at the time of his presentation to the hospital with facial weakness. We were contacted by the nursing staff at 9:30 PM about the new change on the right side of the face. We did have him sent urgently for a follow-up computed tomography scan of the brain last night which was reviewed. CAT scan was negative for any acute changes. It was unchanged from CAT scan performed on 02/06/2018. We reviewed his computed tomography scan of the brain and CT angiogram results once again with the patient at bedside. CAT scan of the brain revealed no acute process or acute stroke. CT angiogram of the head and neck revealed no significant carotid artery bifurcation. [place] was normal. There was proximal obstruction of the right vertebral artery noted exact significance still not clear even this patient's clinical findings. As mentioned we would have preferred to do an MRI but due to the chest leads he cannot go for MRI of the brain and he understands this today. Clinically the patient is showing slight improvement with left-sided weakness but facial symptoms still persist. As noted he has been started on Valtrex this morning. He is to continue on Plavix and aspirin for dual platelet therapy. This morning the patient does not show any significant right facial droop to suggest acute stroke findings. He still shows some mild facial asymmetry on the left side with decreased blink response in the left eyelid. There is evidence suggesting a partial Fox's palsy on the left side of the face. We have discussed this finding today with the patient. We would recommend continue on Valtrex at this time. His blood pressure seems to be doing much better today. He is to be evaluated by cardiology today and we will await their further recommendations. He is scheduled to have a stress test done as outpatient and we will await further recommendations per cardiology. Once again he seems to be doing well with only a partial Fox's palsy symptoms noted on the left side of the face. He has no other motor deficit or other symptoms to suggest acute stroke. We reviewed all of his test results with him today in detail. We will continue to follow his progress very closely during this admission. His overall prognosis at this time remains guarded. Objective - Vital Signs Vital signs: Vital Signs Temp 97.8 F 02/08/18 04:00 Pulse 66 02/08/18 04:00 Resp 18 02/08/18 04:00 BP 130/85 02/08/18 04:00 Pulse Ox 96 02/08/18 04:00 Intake & Output 02/07/18 02/08/18 02/08/18 18:59 06:59 18:59 Intake Total 660 1000 Balance 660 1000 Weight 104.8 kg Intake: Oral 660 1000 Other: Voiding Method Toilet Toilet # Voids 2 1 - Exam Physical Examination: PHYSICAL EXAMINATION: Patient is resting comfortably in bed. VITAL SIGNS: Blood pressure is [130/85]. Heart rate is [67]. Respiration is [18] . Temperature is [97.8]. HEENT: Head is atraumatic, neck is supple, there were no carotid bruits. CHEST: Lungs are clear to auscultation and percussion. CARDIAC: S1, S2 normal rate and rhythm. There is no murmur. ABDOMEN: Soft and nontender. Bowel sounds are present. EXTREMITIES: There is no pedal edema. Peripheral pulses are present. Neurological examination: Patient's neurological examination is unchanged from yesterday. He does seem to have slight decreased eye blink on the left eyelid. Facial asymmetry slightly improved on his left side. He appears to have a partial left-sided Fox's palsy. His remaining neurological examination is nonfocal. - Labs CBC & Chem 7: 02/08/18 06:02 02/08/18 06:02 Labs: Abnormal Lab Results - Last 24 Hours (Table) 02/07/18 02/07/18 02/07/18 Range/Units 11:36 17:23 20:32 BUN (9-20) mg/dL Glucose (74-99) mg/dL POC Glucose (mg/dL) 147 H 212 H 147 H (75-99) mg/dL LDL Cholesterol, Calc (0-99) mg/dL 02/07/18 02/07/18 02/08/18 Range/Units 22:27 22:32 06:02 BUN 22 H (9-20) mg/dL Glucose 68 L (74-99) mg/dL POC Glucose (mg/dL) 60 L 65 L (75-99) mg/dL LDL Cholesterol, Calc 101 H (0-99) mg/dL 02/08/18 Range/Units 06:06 BUN (9-20) mg/dL Glucose (74-99) mg/dL POC Glucose (mg/dL) 65 L (75-99) mg/dL LDL Cholesterol, Calc (0-99) mg/dL Assessment and Plan (1) TIA (transient ischemic attack) Current Visit: Yes Status: Acute Code(s): G45.9 - TRANSIENT CEREBRAL ISCHEMIC ATTACK, UNSPECIFIED SNOMED Code(s): 220875417 (2) Left-sided Fox's palsy Current Visit: Yes Status: Acute Code(s): G51.0 - FOX'S PALSY SNOMED Code (s): 399158914 (3) Acute right MCA stroke Current Visit: Yes Status: Acute Code(s): I63.511 - CEREB INFRC D/T UNSP OCCLS OR STENOS OF RIGHT MID CEREB ART SNOMED Code(s): 348781053 (4) Diabetes mellitus Current Visit: Yes Status: Acute Code(s): E11.9 - TYPE 2 DIABETES MELLITUS WITHOUT COMPLICATIONS SNOMED Code(s): 74695950 (5) Hyperlipidemia Current Visit: Yes Status: Acute Code(s): E78.5 - HYPERLIPIDEMIA, UNSPECIFIED SNOMED Code(s): 16443557 (6) S/P total hip arthroplasty Current Visit: No Status: Acute Code(s): Z96.649 - PRESENCE OF UNSPECIFIED ARTIFICIAL HIP JOINT SNOMED Code(s): 027655951090 Plan: This patient is a 62-year-old male who was admitted with acute onset of left- sided facial weakness and possible TIA versus stroke. On initial presentation it was not very clear whether the patient may have suffered an acute right MCA stroke. He is unable to have MRI of the brain due to chest leads. This was verified today with the MRI Center. His medical presentation at this time suggest possibility of a partial left-sided Fox's palsy. He has mild facial asymmetry and decreased blink response on the left. Last night he had possible new finding of right-sided facial weakness which was a new symptom. He was sent for a repeat computed tomography scan of the brain last night which came back negative. This morning he does not show much evidence of right-sided facial weakness but continues to demonstrate a partial left-sided Fox's palsy. He is to continue on Valtrex for further treatment. He is unable to have MRI but did have his repeat computed tomography scan of the brain last night which was negative for any evidence of acute stroke. Patient has no other focal motor weakness. He is to be evaluated by cardiology. We would recommend he be maintained on Plavix and aspirin for secondary stroke prevention. We will continue to follow his progress closely during this admission. We reviewed the CAT scan results today with the patient at length. Once again he does not show any acute findings of right-sided facial weakness on examination this morning. Findings are still consistent with a partial left-sided Fox's palsy. We recommend the patient to use a lubricant eyedrops to the left eye 3-4 times a day. Would also recommend that he use a patch to the left eye at night when sleeping. We will continue close neurological follow-up for the patient during this admission. His overall prognosis at this time remains guarded.
[2018-02-08] MEDS: INSULN ASP PRT/INSULIN ASPART 100 UNIT/ML 10 ML VIAL SQ SCH ×3 (08:43→18:13)
[2018-02-08] MEDS: METOPROLOL TARTRATE 12.5 MG TAB PO SCH (08:49)
[2018-02-08] MEDS: FUROSEMIDE 40 MG TAB PO SCH (08:49)
[2018-02-08] MEDS: HEPARIN SODIUM,PORCINE 5,000 UNIT/ML 1 ML VIAL SQ SCH ×2 (08:49→20:24)
[2018-02-08] MEDS: CLOPIDOGREL 75 MG TAB PO SCH (08:49)
[2018-02-08] MEDS: ASPIRIN 325 MG TAB PO SCH (08:49)
[2018-02-08] MEDS: valACYclovir HCL 1,000 MG TABLET PO SCH ×4 (08:50→20:25)
[2018-02-08] MEDS: ACETAMINOPHEN TAB 325 MG TAB PO PRN (08:56)
[2018-02-08] MEDS ORDERED: LOSARTAN 50 MG TAB PO SCH (09:00)
[2018-02-08 09:09] LABS: Hemoglobin A1C 10.4 % (4.0-6.0)
--- NOTE | 2018-02-08 09:34 | CT ---
EXAMINATION TYPE: CT brain wo con DATE OF EXAM: 02/08/2018 COMPARISON: 02/07/2018 and 02/06/2018 HISTORY: Lt facial droop CT DLP: 1206.4 mGycm Automated exposure control for dose reduction was used. TECHNIQUE: CT scan of the head is performed without contrast. FINDINGS: There is no acute intracranial hemorrhage, mass effect, or midline shift identified. The ventricles and sulci are within normal limits in size. The globes are intact and the visualized sinuses are thierno ar. Left posterior parietal osseous exostosis is noted. Extensive atherosclerosis of the intracranial vasculature present. IMPRESSION: No acute intracranial process, unchanged from the prior exams. If there is further clinical concern M RI could be utilized for increased sensitivity.
--- NOTE | 2018-02-08 11:20 | P.CRDCN ---
History of Present Illness History of present illness: This is Dr. José dictating a consult on this patient The patient was interviewed and examined by me IMPRESSION / ASSESSMENT: Patient admitted with CVA Admitted with uncontrolled hypertension despite increasing lisinopril to 20 mg twice daily recently as an outpatient Dyslipidemia LDL between 90-100 dl Type II diabetic Preserved LV systolic function by recent 2-D echo in the office with Definity contrast First degree AV block PLAN: Lisinopril 40 mg by mouth daily along with Dyazide If this does not control his blood pressure then I will switch to irbesartan 300 mg plus Dyazide as an outpatient Zetia 10 g by mouth daily I would use PC SK 9 inhibitors since he has known coronary artery disease and his LDL is still above 70 mg/dL despite high-dose statins and he is diabetic Diabetes control per admitting physician HPI Patient presented with headache and slurring of speech and left-sided weakness No chest discomfort ROS: No fever chills or rigors, no cough, phlegm or expectoration, no nausea, vomiting or diarrhea, no hematuria, dysuria, no musculoskeletal complaints, no strokes or seizures, no skin lesions. EXAMINATION: Blood pressure 130/85 mmHg and 163/78 mmHg Pulse rate in the 60s Afebrile Heart sounds S1 and S2 normal no murmurs or gallops or rub Breath sounds are clear no rhonchi no crackles Facial droop is evident REVIEW OF LABS, ECG & MEDICAL DATA Hemoglobin 13.4, Normal electrolytes creatinine 0.69 LDL 101, HDL 40 Past Medical History Past Medical History: Diabetes Mellitus, Hyperlipidemia, Hypertension, Myocardial Infarction ([place]), Osteoarthritis (OA), Sleep Apnea/CPAP/BIPAP Additional Past Medical History / Comment(s): supposed to use CPAP Last Myocardial Infarction Date:: 2006 History of Any Multi-Drug Resistant Organisms: None Reported Past Surgical History: Heart Catheterization, Hernia Repair, Orthopedic Surgery Additional Past Surgical History / Comment(s): right total hip replacement, carpal tunnel, arthroscopy, hemorrhoidectomy, triple bypass 2006, zora fundoplasty Past Anesthesia/Blood Transfusion Reactions: Previous Problems w/ Anesthesia Additional Past Anesthesia/Blood Transfusion Reaction / Comment(s): some kind of problem w/intubation w/cabg, but has had surgery since w/no problems Past Psychological History: No Psychological Hx Reported Smoking Status: Never smoker Past Alcohol Use History: None Reported Past Drug Use History: None Reported - Past Family History Mother Family Medical History: Cancer Brother(s) Family Medical History: Cancer Medications and Allergies Home Medications Medication Instructions Recorded Confirmed Type Aspirin EC [Ecotrin] 325 mg PO BID 08/27/13 02/06/18 History Atorvastatin [Lipitor] 80 mg PO HS 08/27/13 02/06/18 History Metoprolol Tartrate [Lopressor] 25 mg PO BID 08/27/13 02/06/18 History Insulin NPH Hum/Reg Insulin Hm 20 unit SQ AC-LUNCH 01/12/17 02/06/18 History [NovoLIN 70-30 100 UNIT/ML VIAL] Insulin NPH Hum/Reg Insulin Hm 60 unit SQ AC-BRKFST 01/12/17 02/06/18 History [NovoLIN 70-30 100 UNIT/ML VIAL] Insulin NPH Hum/Reg Insulin Hm 60 unit SQ AC-SUPPER 01/12/17 02/06/18 History [NovoLIN 70-30 100 UNIT/ML VIAL] Lisinopril [Zestril] 10 mg PO BID 03/01/17 02/06/18 History Furosemide [Lasix] 40 mg PO DAILY 02/06/18 02/06/18 History Allergies Allergy/AdvReac Type Severity Reaction Status Date / Time No Known Allergies Allergy Verified 02/06/18 12:03 Physical Exam Vitals: Vital Signs Temp Pulse Resp BP Pulse Ox 02/08/18 08:00 98 F 61 20 163/78 97 02/08/18 04:00 97.8 F 66 18 130/85 96 02/08/18 03:45 18 02/08/18 00:00 97.6 F 67 18 125/74 96 02/07/18 20:50 65 20 02/07/18 20:00 97.7 F 65 20 155/85 96 02/07/18 15:35 97.0 F L 74 18 160/100 95 02/07/18 12:00 96.2 F L 64 20 194/86 95 Intake and Output 02/07/18 02/08/18 02/08/18 22:59 06:59 14:59 Intake Total 1040 200 180 Balance 1040 200 180 Intake: Oral 1040 200 180 Other: Voiding Method Toilet Toilet # Voids 1 1 Weight 104.8 kg Results 02/08/18 06:02 02/08/18 06:02 Lipids 02/08/18 Range/Units 06:02 Triglycerides 90 (<150) mg/dL Cholesterol 159 (<200) mg/dL HDL Cholesterol 40 (40-60) mg/dL CBC 02/08/18 Range/Units 06:02 WBC 6.7 (3.8-10.6) k/uL RBC 4.62 (4.30-5.90) m/uL Hgb 13.4 (13.0-17.5) gm/dL Hct 41.6 (39.0-53.0) % Plt Count 254 (150-450) k/uL Comprehensive Metabolic Panel 02/08/18 Range/Units 06:02 Sodium 141 (137-145) mmol/L Potassium 4.3 (3.5-5.1) mmol/L Chloride 107 (98-107) mmol/L Carbon Dioxide 28 (22-30) mmol/L BUN 22 H (9-20) mg/dL Creatinine 0.69 (0.66-1.25) mg/dL Glucose 68 L (74-99) mg/dL Calcium 9.3 (8.4-10.2) mg/dL Current Medications Generic Name Dose Route Start Last Admin Trade Name Freq PRN Reason Stop Dose Admin Acetaminophen 650 mg 02/06/18 19:04 02/08/18 08:56 Tylenol Tab PO 650 mg Q6HR PRN Administration Fever and/ or Pain Alprazolam 0.25 mg 02/07/18 16:59 Xanax PO TID PRN Anxiety Aspirin 81 mg 02/09/18 09:00 Aspirin PO DAILY [facility] Atorvastatin Calcium 80 mg 02/07/18 21:00 02/07/18 20:31 Lipitor PO 80 mg HS RAFAEL Administration Clopidogrel Bisulfate 75 mg 02/07/18 09:00 02/08/18 08:49 Plavix PO 75 mg DAILY RAFAEL Administration Ezetimibe 10 mg 02/08/18 10:00 Zetia PO DAILY [facility] Furosemide 40 mg 02/08/18 09:00 02/08/18 08:49 Lasix PO 40 mg DAILY RAFAEL Administration Heparin Sodium (Porcine) 5,000 unit 02/07/18 21:00 02/08/18 08:49 Heparin SQ 5,000 unit Q12HR RAFAEL Administration Insulin Aspart 0 unit 02/06/18 17:30 02/08/18 06:41 Novolog SQ Not Given AC-TID [facility] Protocol Insulin Aspart 60 unit 02/07/18 17:30 02/07/18 18:28 Novolog Mix 70-30 Vial SQ 60 unit AC-SUPPER [facility] Administration Insulin Aspart 60 unit 02/08/18 07:30 02/08/18 08:43 Novolog Mix 70-30 Vial SQ Not Given AC-BRKFST [facility] Insulin Aspart 20 unit 02/08/18 12:30 Novolog Mix 70-30 Vial SQ AC-LUNCH [facility] Lisinopril 40 mg 02/09/18 09:00 Zestril PO DAILY [facility] Pantoprazole Sodium 40 mg 02/08/18 07:30 02/08/18 06:56 Protonix PO 40 mg AC-BRKFST [facility] Administration Triamterene/HCTZ 1 each 02/08/18 10:15 Dyazide PO DAILY [facility] Valacyclovir HCl 1,000 mg 02/07/18 09:00 02/08/18 08:51 Valtrex PO Not Given DAILY [facility] Valacyclovir HCl 1,000 mg 02/06/18 16:00 02/08/18 08:50 Valtrex PO 1,000 mg TID [facility] Administration Intake and Output 02/07/18 02/08/18 02/08/18 22:59 06:59 14:59 Intake Total 1040 200 180 Balance 1040 200 180 Intake: Oral 1040 200 180 Other: Voiding Method Toilet Toilet # Voids 1 1 Weight 104.8 kg 02/08/18 06:02 02/08/18 06:02
--- NOTE | 2018-02-08 11:58 | ECHOF ---
Referral Reason:Stroke MEASUREMENTS -------- HEIGHT: 167.6 cm WEIGHT: 104.8 kg BP: RVIDd: 2.6 cm (< 3.3) IVSd: 0.7 cm (0.6 - 1.1) LVIDd: 4.4 cm (3.9 - 5.3) LVPWd: 1.1 cm (0.6 - 1.1) IVSs: 1.5 cm LVIDs: 2.7 cm LVPWs: 1.5 cm LAESV Index (A-L): 27.34 ml/m Ao Diam: 3.4 cm (2.0 - 3.7) AV Cusp: 2.6 cm (1.5 - 2.6) LA Diam: 4.1 cm (2.7 - 3.8) MV EXCURSION: 22.907 mm (> 18.000) MV EF SLOPE: 155 mm/s (70 - 150) EPSS: 0.5 cm MV E Mainor: 0.87 m/s MV DecT: 162 ms MV A Mainor: 0.68 m/s MV E/A Ratio: 1.27 RAP: 5.00 mmHg RVSP: 32.20 mmHg FINDINGS -------- Sinus rhythm. This was a technically good study. The left ventricular size is normal. Left ventricular wall thickness is normal. Overall left vent ricular systolic function is low-normal with, an EF between 50 - 55 %. There is paradoxical/dysyner gic septal motion consistent with post-operative status. The right ventricle is normal in size. Normal LA size by volume 22+/-6 ml/m2. The right atrium is normal in size. Aortic valve is trileaflet and is moderately thickened. The mitral valve leaflets are mildly thickened. Mild mitral annular calcification present. There is trace mitral regurgitation. Trace tricuspid regurgitation present. The right ventricular systolic pressure, as measured by Dopp ler, is 32.20mmHg. Pulmonic valve appears structurally normal. The aortic root size is normal. Normal inferior vena cava with normal inspiratory collapse consistent with estimated right atrial pre ssure of 5 mmHg. The pericardium is normal. CONCLUSIONS -------- 1. Sinus rhythm. 2. This was a technically good study. 3. The left ventricular size is normal. 4. Left ventricular wall thickness is normal. 5. Overall left ventricular systolic function is low-normal with, an EF between 50 - 55 %. 6. There is paradoxical/dysynergic septal motion consistent with post-operative status. 7. The right ventricle is normal in size. 8. Normal LA size by volume 22+/-6 ml/m2. 9. The right atrium is normal in size. 10. Aortic valve is trileaflet and is moderately thickened. 11. The mitral valve leaflets are mildly thickened. 12. Mild mitral annular calcification present. 13. There is trace mitral regurgitation. 14. Trace tricuspid regurgitation present. 15. The right ventricular systolic pressure, as measured by Doppler, is 32.20mmHg. 16. Pulmonic valve appears structurally normal. 17. The aortic root size is normal. 18. Normal inferior vena cava with normal inspiratory collapse consistent with estimated right atrial pressure of 5 mmHg. 19. The pericardium is normal. LOSS PREVENTION SUPERVISOR: Tracy Wahl RDCS
[2018-02-08 12:16] LABS: Glucose,Whole Blood 133 mg/dL (75-99)
[2018-02-08 12:36] VITALS: BMI 37.3
[2018-02-08] MEDS: TRIAMTERENE-HCTZ 37.5-25MG 1 EACH CAP PO SCH (12:43)
[2018-02-08] MEDS: EZETIMIBE 10 MG TAB PO SCH (13:27)
[2018-02-08 17:13] LABS: Glucose,Whole Blood 123 mg/dL (75-99)
[2018-02-08] MEDS: LISINOPRIL 20 MG TAB PO SCH (18:14)
[2018-02-08] MEDS: ATORVASTATIN 80 MG TAB PO SCH (20:24)
[2018-02-08 20:43] LABS: Glucose,Whole Blood 113 mg/dL (75-99)
[2018-02-08] MEDS ORDERED: ARTIFICIAL TEARS-HYPROMELLOSE DROPS 15 ML BTL LEFT EYE PRN (21:55)
[2018-02-09 05:16] VITALS: RESP 20
[2018-02-09 06:25] LABS: Glucose,Whole Blood 139 mg/dL (75-99)
[2018-02-09] MEDS: INSULIN ASPART 100 UNIT/ML 1 ML 10 ML VIAL SQ SCH ×2 (06:42→12:09)
[2018-02-09] MEDS: PANTOPRAZOLE 40 MG TABLET PO SCH (06:42)
[2018-02-09] MEDS: INSULN ASP PRT/INSULIN ASPART 100 UNIT/ML 10 ML VIAL SQ SCH ×2 (07:38→12:09)
[2018-02-09 07:43] LABS: Basophils # (A) 0.1 k/uL (0-0.2); Basophils % (A) 1 %; Eosinophils # (A) 0.4 k/uL (0-0.7); Eosinophils % (A) 5 %; HCT 48.6 % (39.0-53.0); HGB 15.8 gm/dL (13.0-17.5); Lymphocytes % (A) 27 %; MCH 29.4 pg (25.0-35.0); MCHC 32.4 g/dL (31.0-37.0); MCV 90.6 fL (80.0-100.0); Mean Platelet Volume 6.7; Monocytes # (A) 0.3 k/uL (0-1.0); Monocytes % (A) 5 %; Neutrophils # (A) 4.4 k/uL (1.3-7.7); Neutrophils % (A) 60 %; Platelet Count 298 k/uL (150-450); RBC 5.36 m/uL (4.30-5.90); WBC 7.3 k/uL (3.8-10.6)
[2018-02-09 07:58] LABS: Anion Gap 8 mmol/L; Blood Urea Nitrogen 19 mg/dL (9-20); Carbon Dioxide 30 mmol/L (22-30); Chloride 103 mmol/L (98-107); Glucose 146 mg/dL (74-99); Potassium 4.5 mmol/L (3.5-5.1); Sodium 141 mmol/L (137-145)
[2018-02-09] MEDS: FUROSEMIDE 40 MG TAB PO SCH (08:36)
[2018-02-09] MEDS: CLOPIDOGREL 75 MG TAB PO SCH (08:36)
[2018-02-09] MEDS: HEPARIN SODIUM,PORCINE 5,000 UNIT/ML 1 ML VIAL SQ SCH (08:37)
[2018-02-09] MEDS: EZETIMIBE 10 MG TAB PO SCH (08:37)
[2018-02-09] MEDS: LISINOPRIL 20 MG TAB PO SCH (08:37)
[2018-02-09] MEDS: TRIAMTERENE-HCTZ 37.5-25MG 1 EACH CAP PO SCH (08:38)
[2018-02-09] MEDS: valACYclovir HCL 1,000 MG TABLET PO SCH (08:38)
[2018-02-09] MEDS ORDERED: LISINOPRIL 20 MG TAB PO SCH (09:00)
[2018-02-09] MEDS ORDERED: ASPIRIN 81 MG PO SCH (09:00)
--- NOTE | 2018-02-09 11:49 | P.PN ---
Subjective Patient is doing well. No chest discomfort dizziness or lightheadedness No breathing trouble he is lying flat in bed His blood pressure is well controlled on a combination of lisinopril 40 mrem daily and Dyazide On examination he is afebrile pulse rate in the 70s blood pressure 119/81 and 128/81 mmHg Breath sounds are clear no rhonchi no crackles Heart sounds. Normal no murmurs or gallops. Abdomen soft nontender Eccentric is warm no edema Impression Patient came in with CVA/TIA Uncontrolled hypertension initially on lisinopril 40 mg by mouth daily which was recently increased from 20 mg by mouth daily about 1-2 weeks back by myself in the office Dyazide added to 40 mg lisinopril with good blood pressure control now Hemoglobin A1c is greater than 10. Previously it was 13 LDL greater than 70 mg/dL therefore Zetia was added but he is a candidate for PCS canine inhibitors because now he's had a CVA and has known coronary artery disease and diabetes His [place] interval was close to 300 ms and therefore I stopped low-dose beta blockers since his LV function is normal Suggest May go home from a cardiac standpoint within the next 12-24 hours New medications include Zetia lisinopril 40 mrem daily and Dyazide No metoprolol Follow-up with Dr. Fu in about 1-2 weeks Objective - Vital Signs Vital signs: Vital Signs Temp 97.8 F 02/09/18 08:00 Pulse 85 02/09/18 08:00 Resp 20 02/09/18 08:00 BP 128/81 02/09/18 08:00 Pulse Ox 96 02/09/18 08:00 Intake & Output 02/08/18 02/09/18 02/09/18 18:59 06:59 18:59 Intake Total 640 500 Balance 640 500 Weight 104.8 kg 101.3 kg Intake: Oral 640 500 Other: Voiding Method Toilet # Voids 1 1 - Labs CBC & Chem 7: 02/09/18 07:12 02/09/18 07:12 Labs: Abnormal Lab Results - Last 24 Hours (Table) 02/08/18 02/08/18 02/08/18 Range/Units 11:43 17:02 20:42 Glucose (74-99) mg/dL POC Glucose (mg/dL) 133 H 123 H 113 H (75-99) mg/dL 02/09/18 02/09/18 Range/Units 06:23 07:12 Glucose 146 H (74-99) mg/dL POC Glucose (mg/dL) 139 H (75-99) mg/dL
[2018-02-09 12:13] LABS: Glucose,Whole Blood 63 mg/dL (75-99)
[2018-02-09 12:25] LABS: Glucose,Whole Blood 84 mg/dL (75-99)
[2018-02-09 12:33] LABS: Glucose,Whole Blood 102 mg/dL (75-99)
[2018-02-09 15:23] VITALS: BP 124/80; PULSE 79; TEMP 97
--- NOTE | 2018-02-09 16:16 | CONS ---
CONSULTATION This is a 62-year-old gentleman who has been admitted to [facility] who came with history of left-sided facial droop. Patient has some difficulty in finding the words. He was complaining of some headache which he has for the past 2 weeks. Patient had a complete stroke workup including a CT of the brain which showed no acute process and CTA showed that both carotids are patent and there was right vertebral was not visualized proximally, but [place] was found to be patent. The patient had a neuro intervention consult and did not recommend tPA. Patient was advised to be put on Plavix and aspirin. There is no evidence of seizure or any motor deficit. MEDICAL HISTORY: History of coronary artery disease, post CABG, history of degenerative joint disease, history of sleep apnea. History of rule out Pollard's palsy by Neurology. PHYSICAL EXAMINATION: Patient was seen in his room. His vital signs were stable. Alert, oriented to time and place. Normal motor function upper and lower extremity. Patient has no evidence of any slurred speech. Neck is supple. No bruit appreciated. CHEST: Clear. ABDOMEN: Soft. Femoral pulses are present. Normal motor function upper and lower extremities. PLAN: The patient is going on Plavix and aspirin. We will follow up in the office in 2 weeks. I have discussed with him in detail about the carotid artery disease and the patient understands. Thank you very much for the consultation. MMODL / IJN: [id number] /
--- NOTE | 2018-02-09 19:29 | P.PN ---
Subjective Progress Note Date: 02/08/18 Progress note being dictated for Dr. 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 Evaluated by both cardiology and neurology with recommendations noted. Maintained on Valtrex with left eye patch. Neuro workup completed. Brain CT negative, with no midline shift, no intracranial hemorrhage, calvarium intact, some cortical thickening of the left parietal bone, repeat CT reported no change. 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 Vascular surgery consulted for further evaluation.Echo Doppler reported low normal LV function, EF 50-55%, paradoxical/ dysnergic septal motion consistent with postoperative status. Blood pressure better controlled today. Denies headache. No slurred speech, no left-sided weakness. Denies chest pain, palpitations or increased shortness of breath. Blood sugars ranging from 60 to 130s. Objective - Vital Signs Vital signs: Vital Signs Temp 97.5 F L 02/08/18 23:11 Pulse 78 02/08/18 23:11 Resp 18 02/08/18 23:11 BP 117/75 02/08/18 23:11 Pulse Ox 95 02/08/18 23:11 Intake & Output 02/08/18 02/08/18 02/09/18 06:59 18:59 06:59 Intake Total 1000 640 350 Balance 1000 640 350 Weight 104.8 kg 104.8 kg Intake: Oral 1000 640 350 Other: Voiding Method Toilet Toilet # Voids 1 1 1 - Exam PHYSICAL EXAM: VITAL SIGNS: As above GENERAL: Sitting up in chair, no acute distress HEENT: Conjunctivae normal. eyes normal. Oral mucosa moist NECK: No JVD. No thyroid enlargement. No LNs CARDIOVASCULAR: S1, S2 muffled. No murmur RESPIRATION: Breath sounds diminished in the bases. Scattered rhonchi rhonchi, no crackles. ABDOMEN: Soft, nontender . No guarding. no masses palpable. Bowel sounds heard. LEGS: No edema. no swelling PSYCHIATRY: Alert and oriented -3, mood and affect normal. NERVOUS SYSTEM: Cranial N 2-12 grossly normal. Moves all 4 limbs. No nystagmus , no facial droop noted, minimal improving facial symmetry of the left side , No focal deficits. Skin: no rash - Labs CBC & Chem 7: 02/09/18 07:12 02/09/18 07:12 Labs: Abnormal Lab Results - Last 24 Hours (Table) 02/07/18 02/08/18 02/08/18 Range/Units 05:59 06:02 06:06 BUN 22 H (9-20) mg/dL Glucose 68 L (74-99) mg/dL POC Glucose (mg/dL) 65 L (75-99) mg/dL Hemoglobin A1c 10.4 H (4.0-6.0) % LDL Cholesterol, Calc 101 H (0-99) mg/dL 02/08/18 02/08/18 02/08/18 Range/Units 11:43 17:02 20:42 BUN (9-20) mg/dL Glucose (74-99) mg/dL POC Glucose (mg/dL) 133 H 123 H 113 H (75-99) mg/dL Hemoglobin A1c (4.0-6.0) % LDL Cholesterol, Calc (0-99) mg/dL Assessment and Plan Assessment: -Left Sided facial drooping with dysarthria, possible acute TIA, possible Pollard' s palsy. -Diabetes mellitus type 2, hemoglobin A1c 10.4 -Hypertension -Hyperlipidemia -CAD, history of [place] Plan: Continue on current medication regime ,monitoring and symptomatic treatment. Vascular surgery consulted regarding further evaluation of CTA reporting patent carotids and [place], but right vertebral not visualized. maintained on both Plavix and aspirin as recommended per neurology. Discharge planning in progress for tomorrow pending vascular surgery evaluation. The impression and plan of care has been dictated as directed. : I performed a history and examination of this patient, discussed the same with the dictator. I agree with the dictator's note ,documented as a scribe. Any additional findings or plans will be noted.
--- NOTE | 2018-02-09 20:43 | DS ---
DISCHARGE SUMMARY FINAL DIAGNOSES: 1. Facial droop on the left side with dysarthria; possible acute stroke involving the right hemisphere versus Pollard's palsy. 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 2. Diabetes mellitus, type 2. 3. Hypertension. 4. Hyperlipidemia. 5. History of myocardial infarction. 6. History of degenerative joint disease. 7. History of sleep apnea. 8. History of hernia surgery. DISCHARGE DISPOSITION: The patient will be discharged in stable condition with guarded prognosis. Total time taken 35 minutes. HISTORY OF PRESENT ILLNESS: This 62-year-old gentleman with a past medical history of multiple medical problems was admitted with left-sided facial droop with a possibility of CVA versus Pollard's palsy considered. The CT scan did not show any acute abnormality. MRI could not be done; however, Dr. Albert seems to favor Pollard's palsy. Recommended close outpatient follow up. The patient also was seen by Vascular Surgery, Dr. Mcbride, because of absent vertebral artery. He recommended to continue the current medication. Dr. José from Cardiology saw the patient. Overall the patient had significant improvement and is being discharged in stable condition with guarded prognosis. The patient is followed by Dr. Ta in the outpatient setting. On exam, vital signs are stable. CARDIOVASCULAR SYSTEM: S1, S2 muffled. ABDOMEN: Soft. NERVOUS SYSTEM: Left-sided facial paresis present. The labs are noted. DISCHARGE ADVICE AND MEDICATIONS: 1. Diet is cardiac. 2. Activity limited until followup. 3. Follow up with Dr. Ta in 2-3 days. 4. Follow up with Dr. Alejandra Albert as recommended. 5. Follow up with Dr. José as recommended. 6. Follow up with Dr. Mcbride as recommended. 7. Lipitor 80 mg at bedtime. 8. Lasix 40 mg p.o. daily. 9. Novolin 70/30, 20 units before lunch and 60 units before breakfast and 60 units before supper. 10.Ecotrin 325 mg p.o. daily. 11.Zetia 10 mg p.o. daily. 12.Lisinopril 40 mg p.o. daily. 13.Protonix 40 mg daily. 14.Triamterene hydrochlorothiazide (Dyazide) 37.5 mg p.o. daily. 15.Valtrex 1000 mg p.o. t.i.d. for a total of 5 days complete. MMBRYANL / IJN: [id number] /
== END 2018-02-09 16:58 | disposition home or self-care (01) | DRG 74 ==
LOC: EC 11:27 → 3SCARD 12:45
PROVIDERS: ADMIT Internal Medicine; ATTEND Internal Medicine
DX: G51.0 Bell's palsy (principal); E11.65 Type 2 diabetes mellitus with hyperglycemia; E78.5 Hyperlipidemia, unspecified; G47.30 Sleep apnea, unspecified; I10 Essential (primary) hypertension; I25.10 Atherosclerotic heart disease of native coronary artery without angina pectoris; I25.2 Old myocardial infarction; I44.0 Atrioventricular block, first degree; M19.90 Unspecified osteoarthritis, unspecified site; R51 Headache; Z96.641 Presence of right artificial hip joint; Z95.1 Presence of aortocoronary bypass graft; Z79.4 Long term (current) use of insulin; Z79.82 Long term (current) use of aspirin; Z79.899 Other long term (current) drug therapy; Z80.9 Family history of malignant neoplasm, unspecified
CPT/HCPCS: 36415; 70450; 70496; 70498; 71046; 80048; 80053; 80061; 82550; 82553; 83036; 84484; 85025; 85610; 85730; 93005; 93306; 96360; 99285

== ENCOUNTER → 2018-05-15 | Outpatient (CLI) | payer MEDICARE | LOC: LABWHC1 09:15 | PROVIDERS: ATTEND Internal Medicine Endocrinology, Diabetes & Metabolism | DX: Z53.9 Procedure and treatment not carried out, unspecified reason (principal) ==

== ENCOUNTER 2018-07-24 01:01 | Emergency (ER) | payer MEDICARE ==
[2018-07-24 01:06] VITALS: PULSE 68; TEMP 97.9
[2018-07-24 01:32] LABS: Basophils # (A) 0.1 k/uL (0-0.2); Basophils % (A) 1 %; Eosinophils # (A) 0.3 k/uL (0-0.7); Eosinophils % (A) 4 %; HCT 38.5 % (39.0-53.0); HGB 12.9 gm/dL (13.0-17.5); Lymphocytes # (A) 2.6 k/uL (1.0-4.8); Lymphocytes % (A) 31 %; MCH 29.9 pg (25.0-35.0); MCHC 33.4 g/dL (31.0-37.0); MCV 89.6 fL (80.0-100.0); Mean Platelet Volume 7.4; Monocytes # (A) 0.4 k/uL (0-1.0); Monocytes % (A) 5 %; Neutrophils # (A) 4.7 k/uL (1.3-7.7); Neutrophils % (A) 57 %; Platelet Count 272 k/uL (150-450); RDW 12.7 % (11.5-15.5); WBC 8.3 k/uL (3.8-10.6)
[2018-07-24 01:46] LABS: INR 0.9 (<1.2); Partial Thromboplastin Time 22.5 sec (22.0-30.0); Prothrombin Time 9.8 sec (9.0-12.0)
--- NOTE | 2018-07-24 01:47 | XR ---
EXAM: XR Chest, 2 Views CLINICAL HISTORY: ITS.REASON XR Reason: Chest Pain TECHNIQUE: Frontal and lateral views of the chest. COMPARISON: 02/06/18. FINDINGS: Lungs: Persistent subsegmental atelectasis in the lingula. Question basilar bronchial wall thickening. Correlate for symptoms of bronchitis. Pleural space: No pneumothorax. Heart: CABG Bones/joints: Sternotomy. Degenerative changes of the spine IMPRESSION: Persistent subsegmental atelectasis in the lingula. Question basilar bronchial wall thickening. Correlate for symptoms of bronchitis.
[2018-07-24 01:50] LABS: ALT 20 U/L (21-72); AST 19 U/L (17-59); African American GFR (CKD) >90 (>60 ml/min/1.73 sqM); Albumin 4.3 g/dL (3.5-5.0); Alkaline Phosphatase 79 U/L (38-126); Anion Gap 10 mmol/L; Blood Urea Nitrogen 23 mg/dL (9-20); Calcium 9.5 mg/dL (8.4-10.2); Carbon Dioxide 24 mmol/L (22-30); Chloride 106 mmol/L (98-107); Glucose 120 mg/dL (74-99); Magnesium 2.1 mg/dL (1.6-2.3); Potassium 3.8 mmol/L (3.5-5.1); Sodium 140 mmol/L (137-145); Total Bilirubin 0.5 mg/dL (0.2-1.3); Total Protein 7.4 g/dL (6.3-8.2)
--- NOTE | 2018-07-24 02:01 | ED ---
Chest Pain HPI - General Chief Complaint: Chest Pain Stated Complaint: Chest Pain Time Seen by Provider: 07/24/18 01:10 Source: patient Mode of arrival: wheelchair Limitations: no limitations - History of Present Illness Initial Comments: Boris Bliss is a pleasant 62-year-old gentleman who presents to the emergency department today for evaluation of upper back pain for 2 days duration. Patient reports that 2-3 days ago he was replacing fence posts on his property, he reports he felt fine at the time however afterwards he developed pain in his upp er back and bilateral shoulders. Patient reports the pain is been constant since then it's in his upper back bilateral shoulders feels like a tightness or squeezing. Pain is not in his chest not associated with palpitations lightheadedness diaphoresis or shortness of breath. Is not similar to previous episodes of cardiac chest pain. Patient has taken Tylenol extra strength without much improvement in the pain. He applied a heating pad which helped transiently however he continued to have discomfort secondary to ER for evaluation. - Related Data Home Medications Medication Instructions Recorded Confirmed Atorvastatin [Lipitor] 80 mg PO HS 08/27/13 03/14/18 Insulin NPH Hum/Reg Insulin Hm 20 unit SQ AC-LUNCH 01/12/17 03/14/18 [NovoLIN 70-30 100 UNIT/ML VIAL] Insulin NPH Hum/Reg Insulin Hm 60 unit SQ AC-BRKFST 01/12/17 03/14/18 [NovoLIN 70-30 100 UNIT/ML VIAL] Insulin NPH Hum/Reg Insulin Hm 60 unit SQ AC-SUPPER 01/12/17 03/14/18 [NovoLIN 70-30 100 UNIT/ML VIAL] Furosemide [Lasix] 40 mg PO DAILY 02/06/18 03/14/18 Previous Rx's Medication Instructions Recorded Aspirin EC [Ecotrin Low Dose] 81 mg PO DAILY #30 tablet. 02/09/18 Clopidogrel Bisulfate [Plavix] 75 mg PO DAILY #30 tab 02/09/18 Ezetimibe [Zetia] 10 mg PO DAILY #90 tab 02/09/18 Lisinopril 40 mg PO DAILY #90 tab 02/09/18 Pantoprazole [Protonix] 40 mg PO AC-BRKFST #30 tablet. 02/09/18 Triamterene-Hctz 37.5-25Mg 1 cap PO DAILY #90 capsule 02/09/18 [Dyazide 37.5-25 Capsule] valACYclovir HCL [Valtrex] 1,000 mg PO TID #9 tablet 02/09/18 Acetaminophen Tab [Tylenol Tab] 650 mg PO Q4H #60 tablet 07/24/18 Lidocaine 5% Patch [Lidoderm] 1 patch TOPICAL DAILY #30 patch 07/24/18 tiZANidine HCL 4 mg PO TID #30 capsule 07/24/18 Allergies Allergy/AdvReac Type Severity Reaction Status Date / Time No Known Allergies Allergy Verified 03/14/18 16:13 Review of Systems ROS Statement: Those systems with pertinent positive or pertinent negative responses have been documented in the HPI. ROS Other: All systems not noted in ROS Statement are negative. EKG Findings - EKG Comments: EKG Findings:: EKG was obtained at 1:14 AM, rate is 67 rhythm is sinus there is a normal axis there is [place] prolongation at 3:30, there is a first-degree AV block, QRS is 88, QTC is 424 there are no acute ST elevations. There are mild ST depressions in V3 through V6 5,. Past Medical History Past Medical History: CVA/TIA, Diabetes Mellitus, Hyperlipidemia, Hypertension, Myocardial Infarction ([place]), Osteoarthritis (OA), Sleep Apnea/CPAP/BIPAP Additional Past Medical History / Comment(s): supposed to use CPAP Last Myocardial Infarction Date:: 2006 History of Any Multi-Drug Resistant Organisms: None Reported Past Surgical History: Heart Catheterization, Hernia Repair, Orthopedic Surgery Additional Past Surgical History / Comment(s): right total hip replacement, carpal tunnel, arthroscopy, hemorrhoidectomy, triple bypass 2006, zora fundoplasty Past Anesthesia/Blood Transfusion Reactions: Previous Problems w/ Anesthesia Additional Past Anesthesia/Blood Transfusion Reaction / Comment(s): some kind of problem w/intubation w/cabg, but has had surgery since w/no problems Past Psychological History: No Psychological Hx Reported Smoking Status: Never smoker - Past Family History Mother Family Medical History: Cancer Brother(s) Family Medical History: Cancer General Exam Limitations: no limitations General appearance: alert, in no apparent distress Head exam: Present: atraumatic, normocephalic Eye exam: Present: normal appearance, PERRL ENT exam: Present: normal exam Neck exam: Present: normal inspection Respiratory exam: Present: normal lung sounds bilaterally. Absent: respiratory distress, wheezes, rales, rhonchi, stridor, chest wall tenderness, accessory muscle use, decreased breath sounds, prolonged expiratory Cardiovascular Exam: Present: regular rate, normal heart sounds. Absent: bradycardia, tachycardia, rubs, clicks, JVD GI/Abdominal exam: Absent: distended Rectal exam: Present: deferred Extremities exam: Present: normal inspection Back exam: Present: normal inspection Neurological exam: Present: alert, oriented X3, normal gait Psychiatric exam: Present: normal affect, normal mood Skin exam: Present: warm, dry Course Vital Signs 07/24/18 07/24/18 01:03 07:19 Temperature 97.9 F Pulse Rate 68 68 Respiratory 20 18 Rate Blood Pressure 130/83 115/82 O2 Sat by Pulse 99 100 Oximetry Chest Pain [facility] Patient was seen and evaluated, history was obtained from the patient and Patient developed back pain 1 day after replacing fence posts in his yard, pain is in back/shoulders, improves with heat, not exertional, no associated palpitations, SOB, lightheadedness or diaphoresis Given patients history a cardiac workup was initated Patient was treated with valium with minimal improvement and morphine with resolution of the pain Workup with no acute findings Results were discussed with patient and , considering patients age and history I offered admission for further evaluation by cardiology. At this time patient and are comfortable with plan for discharge home, they will continue supportive care and follow up outpatient. Return parameters discussed. Patient discharged home in stable condition. Disposition Clinical Impression: Atypical chest pain, Musculoskeletal back pain Disposition: HOME SELF-CARE Condition: Stable Instructions (If sedation given, give patient instructions): Musculoskeletal Pain (ED), Thoracic Pain (ED) Prescriptions: Lidocaine 5% Patch [Lidoderm] 1 patch TOPICAL DAILY #30 patch tiZANidine HCL 4 mg PO TID #30 capsule Acetaminophen Tab [Tylenol Tab] 650 mg PO Q4H #60 tablet Is patient prescribed a controlled substance at d/c from ED?: No Referrals: Nathan Ta DO [Primary Care Provider] - 1-2 days
[2018-07-24] MEDS ORDERED: DIAZEPAM 5 MG TAB PO STA (02:02)
[2018-07-24] MEDS ORDERED: MORPHINE SULFATE 4 MG/ML SYRINGE IVP STA (04:06)
[2018-07-24 07:20] VITALS: BP 115/82; RESP 18
== END 2018-07-24 07:21 | disposition home or self-care (01) ==
LOC: EC 01:01
DX: R07.89 Other chest pain (principal); M54.6 Pain in thoracic spine; M25.511 Pain in right shoulder; M25.512 Pain in left shoulder; E11.9 Type 2 diabetes mellitus without complications; E78.5 Hyperlipidemia, unspecified; I10 Essential (primary) hypertension; I25.2 Old myocardial infarction; M19.90 Unspecified osteoarthritis, unspecified site; Z86.73 Personal history of transient ischemic attack (TIA), and cerebral infarction without residual deficits; Z79.4 Long term (current) use of insulin; Z79.899 Other long term (current) drug therapy; Z95.818 Presence of other cardiac implants and grafts; Z96.641 Presence of right artificial hip joint; Z95.1 Presence of aortocoronary bypass graft
CPT/HCPCS: 36415; 93005; 83880; 80053; 83735; 84484; 85025; 85610; 85730; 71046; 99285; 96374; J2270

== ENCOUNTER 2018-07-25 22:02 | Observation (INO) | payer MEDICARE ==
[2018-07-25] MEDS ORDERED: SODIUM CHLORIDE 0.9% 500 ML 500 ML IV STA (22:21)
--- NOTE | 2018-07-25 22:41 | ED ---
General Adult HPI - General Chief complaint: Recheck/Abnormal Lab/Rx Stated complaint: BP Med Reaction Time Seen by Provider: 07/25/18 22:20 Source: patient Mode of arrival: wheelchair Limitations: no limitations - History of Present Illness Initial comments: This patient is a 62-year-old man who presents to be evaluated for a constellation of symptoms that started this evening after he took Zanaflex. Patient's states that he took a Zanaflex approximate 9 PM. Shortly thereafter he started feeling lightheaded, he states that his vision seemed to be turning into tunnel vision, he felt numb and tingly. Patient had discussed this with his daughter and she came and checked his blood pressure and it was in the 60s to 70s over 40s. Patient had taken one dose of Zanaflex earlier in the day and it did not have this effect on him. Patient was seen here yesterday for left flank pain, that was felt that his pain was musculoskeletal and he was given the Zanaflex to take. It had developed after he had been working on a [employer] posts earlier in the weekend. Patient states that the back pain is been going on for a few days, and it has not been getting worse. He states that he has been using a lidocaine patch and it seems to help it a little bit. Patient is currently not having any anginal symptoms, no dyspnea, diaphoresis, nausea or vomiting or lightheadedness (this has resolved). Onset/Timin -: minutes(s) Location: left (flank) Consistency: now resolved Improves with: none Worsens with: none Associated Symptoms: denies other symptoms Treatments Prior to Arrival: none - Related Data Home Medications Medication Instructions Recorded Confirmed Atorvastatin [Lipitor] 80 mg PO HS 08/27/13 07/25/18 Insulin NPH Hum/Reg Insulin Hm 20 unit SQ AC-LUNCH 01/12/17 07/25/18 [NovoLIN 70-30 100 UNIT/ML VIAL] Insulin NPH Hum/Reg Insulin Hm 60 unit SQ AC-BRKFST 01/12/17 07/25/18 [NovoLIN 70-30 100 UNIT/ML VIAL] Insulin NPH Hum/Reg Insulin Hm 60 unit SQ AC-SUPPER 01/12/17 07/25/18 [NovoLIN 70-30 100 UNIT/ML VIAL] Previous Rx's Medication Instructions Recorded Aspirin EC [Ecotrin Low Dose] 81 mg PO DAILY #30 tablet. 02/09/18 Lisinopril 40 mg PO DAILY #90 tab 02/09/18 Triamterene-Hctz 37.5-25Mg 1 cap PO DAILY #90 capsule 02/09/18 [Dyazide 37.5-25 Capsule] Lidocaine 5% Patch [Lidoderm] 1 patch TOPICAL DAILY #30 patch 07/24/18 tiZANidine HCL 4 mg PO TID #30 capsule 07/24/18 Allergies Allergy/AdvReac Type Severity Reaction Status Date / Time No Known Allergies Allergy Verified 07/25/18 22:57 Review of Systems ROS Statement: Those systems with pertinent positive or pertinent negative responses have been documented in the HPI. ROS Other: All systems not noted in ROS Statement are negative. Constitutional: Denies: fever, chills, weakness Eyes: Reports: as per HPI, vision change Respiratory: Denies: cough, dyspnea Cardiovascular: Reports: syncope (Near syncope). Denies: chest pain, palpitations, orthopnea, edema Gastrointestinal: Denies: abdominal pain, nausea, vomiting Genitourinary: Denies: dysuria, hematuria Musculoskeletal: Denies: back pain Skin: Denies: rash Neurological: Denies: headache, weakness, numbness Past Medical History Past Medical History: CVA/TIA, Diabetes Mellitus, Hyperlipidemia, Hypertension, Myocardial Infarction ([place]), Osteoarthritis ([place]), Sleep Apnea/CPAP/BIPAP Additional Past Medical History / Comment(s): supposed to use CPAP Last Myocardial Infarction Date:: 2006 History of Any Multi-Drug Resistant Organisms: None Reported Past Surgical History: Coronary Bypass/CABG, Heart Catheterization, Hernia Repair, Orthopedic Surgery Additional Past Surgical History / Comment(s): right total hip replacement, carpal tunnel, arthroscopy, hemorrhoidectomy, triple bypass 2006, zora fundoplasty Past Anesthesia/Blood Transfusion Reactions: Previous Problems w/ Anesthesia Additional Past Anesthesia/Blood Transfusion Reaction / Comment(s): some kind of problem w/intubation w/cabg, but has had surgery since w/no problems Past Psychological History: No Psychological Hx Reported Smoking Status: Never smoker Past Alcohol Use History: None Reported Past Drug Use History: None Reported - Past Family History Mother Family Medical History: Cancer Brother(s) Family Medical History: Cancer General Exam Limitations: no limitations General appearance: alert, in no apparent distress Head exam: Present: atraumatic, normocephalic Eye exam: Present: normal appearance, PERRL, EOMI. Absent: scleral icterus, conjunctival injection ENT exam: Present: normal oropharynx Neck exam: Present: normal inspection, full ROM Respiratory exam: Present: normal lung sounds bilaterally. Absent: respiratory distress, wheezes, rales, rhonchi, stridor Cardiovascular Exam: Present: regular rate, normal rhythm, normal heart sounds, other (Normal dorsalis pedis pulses). Absent: systolic murmur, diastolic murmur, rubs, gallop GI/Abdominal exam: Present: soft. Absent: distended, tenderness, guarding, rebound, rigid, mass Extremities exam: Present: normal inspection, normal capillary refill. Absent: pedal edema, calf tenderness Back exam: Present: normal inspection. Absent: CVA tenderness (R), CVA tenderness (L) Neurological exam: Present: alert, oriented X3, CN II-XII intact. Absent: motor sensory deficit Skin exam: Present: warm, dry, intact, normal color. Absent: rash Course Vital Signs 07/25/18 07/25/18 07/26/18 22:10 23:50 02:16 Temperature 98.6 F 98.8 F Pulse Rate 69 67 87 Respiratory 18 18 18 Rate Blood Pressure 107/69 114/71 111/82 O2 Sat by Pulse 96 97 97 Oximetry EKG Findings - EKG Results: EKG: interpreted by JACQUELINE, sinus rhythm (Rate 65 bpm), normal axis, normal QRS - Blocks, [place], Hypertrophy, ST Abn: Repolarization changes or abnormalities: ST or T wave suggestive of ischemia (Lateral T inversions. ) Medical Decision Making - Medical Decision Making Patient's 62-year-old man with flank pain, who had an episode of hypotension earlier today following taking his medication. The patient noted today to have increase in creatinine versus yesterday. I had a prolonged discussion with the patient and family regarding the differential diagnosis, including the low probability that there would be dissection affecting patient's kidney. Explain that the test for this would be CT with contrast and that there is possibility of CT dye causing worsening of kidney function. At this point patient is declining to have the CT with contrast, and would prefer to be admitted and discussed with one of his physicians. Patient will have IV fluid and nephrology consultation in addition. - Lab Data Result diagrams: 07/25/18 22:40 07/25/18 22:40 Lab Results 07/25/18 07/25/18 07/25/18 Range/Units 22:40 22:40 22:40 WBC 10.4 (3.8-10.6) k/uL RBC 4.32 (4.30-5.90) m/uL Hgb 13.2 (13.0-17.5) gm/dL Hct 39.7 (39.0-53.0) % MCV 91.9 (80.0-100.0) fL MCH 30.5 (25.0-35.0) pg MCHC 33.2 (31.0-37.0) g/dL RDW 13.6 (11.5-15.5) % Plt Count 303 (150-450) k/uL Neutrophils % 66 % Lymphocytes % 24 % Monocytes % 5 % Eosinophils % 2 % Basophils % 1 % Neutrophils # 6.9 (1.3-7.7) k/uL Lymphocytes # 2.5 (1.0-4.8) k/uL Monocytes # 0.5 (0-1.0) k/uL Eosinophils # 0.3 (0-0.7) k/uL Basophils # 0.1 (0-0.2) k/uL D-Dimer (<0.60) mg/L FEU Sodium 139 (137-145) mmol/L Potassium 4.2 (3.5-5.1) mmol/L Chloride 104 (98-107) mmol/L Carbon Dioxide 23 (22-30) mmol/L Anion Gap 12 mmol/L BUN 34 H (9-20) mg/dL Creatinine 2.28 H (0.66-1.25) mg/dL Est GFR (CKD-EPI)AfAm 34 (>60 ml/min/1.73 sqM) Est GFR (CKD-EPI)NonAf 29 (>60 ml/min/1.73 sqM) Glucose 136 H (74-99) mg/dL Plasma Lactic Acid [place] (0.7-2.0) mmol/L Calcium 9.5 (8.4-10.2) mg/dL Total Bilirubin 0.5 (0.2-1.3) mg/dL AST 23 (17-59) U/L ALT 23 (21-72) U/L Alkaline Phosphatase 84 (38-126) U/L Troponin I <0.012 (0.000-0.034) ng/mL Total Protein 7.6 (6.3-8.2) g/dL Albumin 4.5 (3.5-5.0) g/dL Urine Color Urine Appearance (Clear) Urine pH (5.0-8.0) Ur Specific [place] (1.001-1.035) Urine Protein (Negative) Urine Glucose (UA) (Negative) Urine Ketones (Negative) Urine Blood (Negative) Urine Nitrite (Negative) Urine Bilirubin (Negative) Urine Urobilinogen (<2.0) mg/dL Ur Leukocyte Esterase (Negative) 07/25/18 07/25/18 07/26/18 Range/Units 22:40 22:40 00:00 WBC (3.8-10.6) k/uL RBC (4.30-5.90) m/uL Hgb (13.0-17.5) gm/dL Hct (39.0-53.0) % MCV (80.0-100.0) fL MCH (25.0-35.0) pg MCHC (31.0-37.0) g/dL RDW (11.5-15.5) % Plt Count (150-450) k/uL Neutrophils % % Lymphocytes % % Monocytes % % Eosinophils % % Basophils % % Neutrophils # (1.3-7.7) k/uL Lymphocytes # (1.0-4.8) k/uL Monocytes # (0-1.0) k/uL Eosinophils # (0-0.7) k/uL Basophils # (0-0.2) k/uL D-Dimer 0.60 H (<0.60) mg/L FEU Sodium (137-145) mmol/L Potassium (3.5-5.1) mmol/L Chloride (98-107) mmol/L Carbon Dioxide (22-30) mmol/L Anion Gap mmol/L BUN (9-20) mg/dL Creatinine (0.66-1.25) mg/dL Est GFR (CKD-EPI)AfAm (>60 ml/min/1.73 sqM) Est GFR (CKD-EPI)NonAf (>60 ml/min/1.73 sqM) Glucose (74-99) mg/dL Plasma Lactic Acid [place] 1.4 (0.7-2.0) mmol/L Calcium (8.4-10.2) mg/dL Total Bilirubin (0.2-1.3) mg/dL AST (17-59) U/L ALT (21-72) U/L Alkaline Phosphatase (38-126) U/L Troponin I (0.000-0.034) ng/mL Total Protein (6.3-8.2) g/dL Albumin (3.5-5.0) g/dL Urine Color Yellow Urine Appearance Clear (Clear) Urine pH 5.0 (5.0-8.0) Ur Specific [place] 1.016 (1.001-1.035) Urine Protein Trace H (Negative) Urine Glucose (UA) Negative (Negative) Urine Ketones Negative (Negative) Urine Blood Negative (Negative) Urine Nitrite Negative (Negative) Urine Bilirubin Negative (Negative) Urine Urobilinogen <2.0 (<2.0) mg/dL Ur Leukocyte Esterase Negative (Negative) Disposition Clinical Impression: Back pain, Acute kidney injury Disposition: ADMITTED IP TO THIS HOSP Condition: Fair Is patient prescribed a controlled substance at d/c from ED?: No
[2018-07-25 22:58] LABS: Basophils # (A) 0.1 k/uL (0-0.2); Basophils % (A) 1 %; Eosinophils # (A) 0.3 k/uL (0-0.7); Eosinophils % (A) 2 %; HCT 39.7 % (39.0-53.0); HGB 13.2 gm/dL (13.0-17.5); Lymphocytes # (A) 2.5 k/uL (1.0-4.8); Lymphocytes % (A) 24 %; MCH 30.5 pg (25.0-35.0); MCHC 33.2 g/dL (31.0-37.0); MCV 91.9 fL (80.0-100.0); Mean Platelet Volume 7.4; Monocytes # (A) 0.5 k/uL (0-1.0); Monocytes % (A) 5 %; Neutrophils # (A) 6.9 k/uL (1.3-7.7); Neutrophils % (A) 66 %; Platelet Count 303 k/uL (150-450); RBC 4.32 m/uL (4.30-5.90); RDW 13.6 % (11.5-15.5); WBC 10.4 k/uL (3.8-10.6)
[2018-07-25 23:07] LABS: Albumin 4.5 g/dL (3.5-5.0); Calcium 9.5 mg/dL (8.4-10.2); Potassium 4.2 mmol/L (3.5-5.1); Total Bilirubin 0.5 mg/dL (0.2-1.3); Total Protein 7.6 g/dL (6.3-8.2)
[2018-07-26 00:16] LABS: Appearance,Urine Clear (Clear); Bilirubin,Urine Negative (Negative); Blood,Urine Negative (Negative); Color,Urine Yellow; Glucose,Urine (UA) Negative (Negative); Ketones,Urine Negative (Negative); Leukocyte Esterase,Urine Negative (Negative); Nitrite,Urine Negative (Negative); Protein,Urine Trace (Negative); Specific Gravity,Urine 1.016 (1.001-1.035); Urobilinogen,Urine <2.0 mg/dL (<2.0)
--- NOTE | 2018-07-26 00:29 | CT ---
EXAM: CT Abdomen and Pelvis Without Intravenous Contrast CLINICAL HISTORY: ITS.REASON CT Reason: l flank pain TECHNIQUE: Axial computed tomography images of the abdomen and pelvis without intravenous contrast. CTDI is 18.3 mGy and DLP is 1065 mGy-cm. This CT exam was performed using one or more of the following dose reduction techniques: automated exposure control, adjustment of the mA and/or kV according to patient size, and/or use of iterative reconstruction technique. COMPARISON: CT abdomen/pelvis on 09/02/2013 FINDINGS: Evaluation of solid organs somewhat limited without IV contrast. Liver: No focal lesion. Spleen: No focal lesion. Gallbladder: No stones or biliary dilatation. Pancreas: Mild atrophy of the pancreas. No acute inflammation. No mass. Adrenal glands: No mass. Kidneys: Mild nonspecific bilateral perinephric fat stranding. No hydronephrosis or stone. No mass. Bowel: Diverticulosis without evidence of diverticulitis. Normal appendix. Fluid and gas-filled small bowel loops are nonspecific but could represent enteritis or ileus in the appropriate clinical setting. No bowel obstruction or inflammation. Urinary bladder: No wall thickening or mass. Reproductive organs: Unremarkable. Muscles: No mass. Subcutaneous tissues: Small fat-containing umbilical hernia. Peritoneal space: No free fluid. Lymph nodes: No lymphadenopathy. Vessels: No aneurysm. Bones: Bilateral hip arthroplasties which cause streak artifact that limits evaluation of portions of the pelvis. Degenerative changes of the spine. Degenerative mild retrolisthesis of L1 on L2. No acute fracture or bony lesion. Lung bases: Coronary artery calcifications. Median sternotomy changes partially visualized. IMPRESSION: Fluid and gas-filled small bowel loops are nonspecific but could represent enteritis or ileus in the appropriate clinical setting.
[2018-07-26] MEDS ORDERED: SODIUM CHLORIDE 0.9% 1,000 ML IV ONE (00:51)
[2018-07-26] MEDS ORDERED: NITROGLYCERIN SL TABS 0.4 MG TAB SUBLINGUAL PRN (01:39)
[2018-07-26 06:53] LABS: Glucose,Whole Blood 126 mg/dL (75-99)
[2018-07-26] MEDS ORDERED: INSULN ASP PRT/INSULIN ASPART 100 UNIT/ML 10 ML VIAL SQ SCH ×3 (07:30→17:30)
[2018-07-26 08:44] VITALS: RESP 18
[2018-07-26] MEDS ORDERED: NON-FORMULARY DRUG (Aspirin Ec 81 MG) PO SCH (09:00)
[2018-07-26] MEDS ORDERED: TRIAMTERENE-HCTZ 37.5-25MG 1 EACH CAP PO SCH (09:00)
[2018-07-26] MEDS ORDERED: LIDOCAINE 5% PATCH TOPICAL SCH (09:00)
[2018-07-26] MEDS ORDERED: LISINOPRIL 20 MG TAB PO SCH ×2 (09:00)
[2018-07-26] MEDS ORDERED: SODIUM CHLORIDE 0.9% 1,000 ML IV SCH (09:15)
--- NOTE | 2018-07-26 10:00 | P.NPCON ---
History of Present Illness - Reason for Consult acute renal failure - History of Present Illness Reason for consultation: Acute kidney injury History of present illness: Patient is a 62-year-old male seen in renal consultation for acute kidney injury. He was seen in the observation unit. Patient baseline creatinine is near 1 and was elevated at 2.28 on admission yesterday. Patient presented to the hospital due to dizziness and near syncopal episode. Patient states his blood pressure was in the systolic 60s over diastolics 40s when he checked it at home. Patient states he took a dose of Zanaflex during the day on Tuesday and tolerated it fine. When he took another dose Tuesday evening he suddenly started feeling dizzy. He denies vomiting or diarrhea. Denies regular use of nonsteroidals. Denies personal or family history of kidney disease. Oral intake is good. Good urine output. No hematuria or dysuria. Patient does have long-standing history of diabetes mellitus. He also has coronary artery disease and underwent CABG in 2006. No abdominal pain. No edema. Patient was taking lisinopril as well as Dyazide at home which are currently held. He received a 500 mL bolus of normal saline in the ER but did not receive IV fluids overnight. Vital signs are stable. General: The patient appeared well nourished and normally developed. HEENT: Head exam is unremarkable. Neck is without jugular venous distension. LUNGS: Lungs are clear to auscultation and percussion. Breath sounds decreased. HEART: Rate and Rhythm are regular. First and second heart sounds normal. No murmurs, rubs or gallops. ABDOMEN: Abdominal exam reveals normal bowel sounds. Non-tender and non- distended. No evidence of peritonitis. EXTREMITITES: No clubbing, cyanosis, or edema. Past Medical History Past Medical History: CVA/TIA, Diabetes Mellitus, Hyperlipidemia, Hypertension, Myocardial Infarction ([place]), Osteoarthritis (OA), Sleep Apnea/CPAP/BIPAP Additional Past Medical History / Comment(s): supposed to use CPAP Last Myocardial Infarction Date:: 2006 History of Any Multi-Drug Resistant Organisms: None Reported Past Surgical History: Coronary Bypass/CABG, Heart Catheterization, Hernia Repair, Orthopedic Surgery Additional Past Surgical History / Comment(s): left and right total hip replacement, carpal tunnel, arthroscopy, hemorrhoidectomy, triple bypass 2006, zora fundoplasty Past Anesthesia/Blood Transfusion Reactions: Previous Problems w/ Anesthesia Additional Past Anesthesia/Blood Transfusion Reaction / Comment(s): some kind of problem w/intubation w/cabg, but has had surgery since w/no problems Past Psychological History: No Psychological Hx Reported Smoking Status: Never smoker Past Alcohol Use History: None Reported Past Drug Use History: None Reported - Past Family History Mother Family Medical History: Cancer Brother(s) Family Medical History: Cancer Medications and Allergies Home Medications Medication Instructions Recorded Confirmed Type Atorvastatin [Lipitor] 80 mg PO HS 08/27/13 07/25/18 History Insulin NPH Hum/Reg Insulin Hm 20 unit SQ AC-LUNCH 01/12/17 07/25/18 History [NovoLIN 70-30 100 UNIT/ML VIAL] Insulin NPH Hum/Reg Insulin Hm 60 unit SQ AC-BRKFST 01/12/17 07/25/18 History [NovoLIN 70-30 100 UNIT/ML VIAL] Insulin NPH Hum/Reg Insulin Hm 60 unit SQ AC-SUPPER 01/12/17 07/25/18 History [NovoLIN 70-30 100 UNIT/ML VIAL] Aspirin EC [Ecotrin Low Dose] 81 mg PO DAILY #30 tablet. 02/09/18 07/25/18 Rx Triamterene-Hctz 37.5-25Mg 1 cap PO DAILY #90 capsule 02/09/18 07/25/18 Rx [Dyazide 37.5-25 Capsule] Lidocaine 5% Patch [Lidoderm] 1 patch TOPICAL DAILY #30 patch 07/24/18 07/25/18 Rx tiZANidine HCL 4 mg PO TID #30 capsule 07/24/18 07/25/18 Rx Lisinopril 20 mg PO DAILY 07/26/18 07/26/18 History Allergies Allergy/AdvReac Type Severity Reaction Status Date / Time No Known Allergies Allergy Verified 07/26/18 02:47 Physical Exam Vitals: Vital Signs Temp Pulse Pulse Pulse Resp BP BP 07/26/18 08:00 97.9 F 70 18 114/73 07/26/18 02:39 98.1 F 78 15 94/61 07/26/18 02:16 98.8 F 87 18 111/82 07/25/18 23:50 67 18 114/71 07/25/18 22:10 98.6 F 69 18 107/69 Pulse Ox 07/26/18 08:00 93 L 07/26/18 02:39 99 07/26/18 02:16 97 07/25/18 23:50 97 07/25/18 22:10 96 Intake and Output 07/25/18 07/26/18 07/26/18 22:59 06:59 14:59 Other: Voiding Method Toilet # Voids 1 Weight 104.326 kg Results - Lab Results Most recent lab results Calcium 9.5 mg/dL (8.4-10.2) 07/25/18 22:40 07/25/18 22:40 07/25/18 22:40 Assessment and Plan Plan: Assessment: 1. Acute kidney injury mostly prerenal secondary to intravascular volume depletion from diuretics as well as hypotension. Creatinine 2.28 on admission. Baseline creatinine near 1. No evidence of hydronephrosis noted on renal ultrasound. 2. Hypotension secondary to diuretics and lisinopril. ?Zanaflex-induced. 3. Insulin-dependent diabetes mellitus. 4. Trace proteinuria. This is most likely secondary to underlying diabetic kidney disease. Plan: Resume normal saline at 100 mL an hour. Hold diuretics and antihypertensives. Follow-up morning labs. If renal function improving, he can be discharged home from nephrology standpoint. He will need to follow-up outpatient in the next 1-2 weeks. Anti hypertensives and diuretics are to be held. He will monitor his blood pressure at home closely. Thank you for the consultation. I will continue to follow the patient with you during his hospital stay.
[2018-07-26 10:22] LABS: Calcium 8.9 mg/dL (8.4-10.2); Potassium 4.9 mmol/L (3.5-5.1)
--- NOTE | 2018-07-26 11:23 | P.CRDCN ---
History of Present Illness History of present illness: This is a pleasant [age] male past medical history significant for coronary artery disease status post bypass grafting, hypertension, dyslipidemia and diabetes mellitus. He follows in the office with Dr. Fu. He states starting on Tuesday night while camping he noticed a 80 achy sensation in the left flank region. At times the pain would radiate up the spine and at one point he felt a tightness in the mid-sternal region. This chest discomfort was brief lasting only a few seconds. He was seen in ER Tuesday and given a prescription for zanaflex. He took one Tuesday morning and slept most of the day. Then in the evening before dinner he took another one and shortly thereafter he started to feel extremely light headed, weak and fatigued. His daughter checked his blood pressure reading were quite low in the 60-70's systolic. Upon arrival to the emergency department blood pressure was 107/69. He was also found to be in acute kidney injury. He is seen and examined resting comfortably in bed in no acute distress. He denies any ongoing symptoms of lightheaded and dizziness. Denies any further symptoms of chest discomfort. He has had no shortness of breath, nausea, vomiting, diaphoresis or palpitations associated with any of his presenting symptoms. He recently underwent a Lexiscan stress test in the office March 2018 that was negative for reversible cardiac ischemia. EKG reveals sinus mechanism with ST and T wave abnormalities noted in the inf erior lateral and anterior leads. Consistent with previous EKG with no acute changes noted. Laboratory data reviewed, WBC 10.4, hemoglobin 13.2, platelets 303, d-dimer 0.6, sodium 140, potassium 4.9, creatinine 1.37 today and on admission was 2.28, GFR is 55, cardiac enzymes negative 2, LDL 101. Current cardiac medications include lisinopril 20 mg daily, atorvastatin 80 mg daily, Dyazide 37.5/25 mg daily and aspirin 81 mg daily. At the time of my exam: CONSTITUTIONAL: Denies fever. Denies chills. EYES: Denies blurred vision. Denies vision changes. Denies eye pain. EARS, NOSE, MOUTH & THROAT: Denies headache. Denies sore throat. Denies ear pain. CARDIOVASCULAR: Denies chest pain. Denies shortness of breath. Denies orthopnea. Denies PND. Denies palpitations. RESPIRATORY: Denies cough. GASTROINTESTINAL: Denies abdominal pain. Denies diarrhea. Denies constipation. Denies nausea. Denies vomiting. MUSCULOSKELETAL: Denies myalgias. INTEGUMENTARY: Denies pruitis. Denies rash. NEUROLOGIC: Denies numbness. Denies tingling. Denies weakness. PSYCHIATRIC: Denies anxiety. Denies depression. ENDOCRINE: Denies fatigue. Denies weight change. Denies polydipsia. Denies polyurina. GENITOURINARY: Denies burning, hematuria or urgency with micturation. HEMATOLOGIC: Denies history of anemia. Denies bleeding. Blood pressure 114/73 heart rate 70 afebrile maintaining oxygen saturation on room air GENERAL: This is a 62-year-old male in no apparent distress at the time of my examination. HEENT: Head is atraumatic, normocephalic. Pupils are equal, round. Sclerae anicteric. Conjunctivae are clear. Mucous membranes of the mouth are moist. Neck is supple. There is no jugular venous distention. No carotid bruit is heard. LUNGS: Clear to auscultation no wheezes, rales or rhonchi. No chest wall tenderness is noted on palpation or with deep breathing. HEART: Regular rate and rhythm without murmurs, rubs or gallops. S1 and S2 heard. ABDOMEN: Soft, nontender. Bowel sounds are heard. No organomegaly noted. EXTREMITIES: No evidence of peripheral edema and no calf tenderness noted. VASCULAR: Radial and dorsalis pedis pulses palpated, no evidence of clubbing. NEUROLOGIC: Patient is awake, alert and oriented x3. ASSESSMENT Left flank pain Acute kidney injury secondary to hypotensive episode along with zanaflex and anti-hypertensive medications Hypertension Dyslipidemia Diabetes mellitus History of coronary artery disease s/p bypass grafting 2007 Obesity, BMI 37 PLAN Hold lisinopril and dyazide. Initiate on IV fluid hydration at 100cc/hr. Continue to monitor blood pressure. If blood pressure is stable he may go home on no anti-hypertensive medications. He has been advised to check his blood pressures daily and bring log with him to the office. Repeat BMP in the morning. Nephrology is also following. Thank you kindly for this consultation. Nurse Practitioner note has been reviewed, I agree with a documented findings and plan of care. Patient was seen and examined. Past Medical History Past Medical History: CVA/TIA, Diabetes Mellitus, Hyperlipidemia, Hypertension, Myocardial Infarction (ID), Osteoarthritis (OA), Sleep Apnea/CPAP/BIPAP Additional Past Medical History / Comment(s): supposed to use CPAP Last Myocardial Infarction Date:: 2006 History of Any Multi-Drug Resistant Organisms: None Reported Past Surgical History: Coronary Bypass/CABG, Heart Catheterization, Hernia Repair, Orthopedic Surgery Additional Past Surgical History / Comment(s): left and right total hip replacement, carpal tunnel, arthroscopy, hemorrhoidectomy, triple bypass 2006, zora fundoplasty Past Anesthesia/Blood Transfusion Reactions: Previous Problems w/ Anesthesia Additional Past Anesthesia/Blood Transfusion Reaction / Comment(s): some kind of problem w/intubation w/cabg, but has had surgery since w/no problems Past Psychological History: No Psychological Hx Reported Smoking Status: Never smoker Past Alcohol Use History: None Reported Past Drug Use History: None Reported - Past Family History Mother Family Medical History: Cancer Brother(s) Family Medical History: Cancer Medications and Allergies Home Medications Medication Instructions Recorded Confirmed Type Atorvastatin [Lipitor] 80 mg PO HS 08/27/13 07/25/18 History Insulin NPH Hum/Reg Insulin Hm 20 unit SQ AC-LUNCH 01/12/17 07/25/18 History [NovoLIN 70-30 100 UNIT/ML VIAL] Insulin NPH Hum/Reg Insulin Hm 60 unit SQ AC-BRKFST 01/12/17 07/25/18 History [NovoLIN 70-30 100 UNIT/ML VIAL] Insulin NPH Hum/Reg Insulin Hm 60 unit SQ AC-SUPPER 01/12/17 07/25/18 History [NovoLIN 70-30 100 UNIT/ML VIAL] Aspirin EC [Ecotrin Low Dose] 81 mg PO DAILY #30 tablet. 02/09/18 07/25/18 Rx Triamterene-Hctz 37.5-25Mg 1 cap PO DAILY #90 capsule 02/09/18 07/25/18 Rx [Dyazide 37.5-25 Capsule] Lidocaine 5% Patch [Lidoderm] 1 patch TOPICAL DAILY #30 patch 07/24/18 07/25/18 Rx tiZANidine HCL 4 mg PO TID #30 capsule 07/24/18 07/25/18 Rx Lisinopril 20 mg PO DAILY 07/26/18 07/26/18 History Allergies Allergy/AdvReac Type Severity Reaction Status Date / Time No Known Allergies Allergy Verified 07/26/18 02:47 Physical Exam Vitals: Vital Signs Temp Pulse Pulse Resp BP BP Pulse Ox 07/26/18 02:39 98.1 F 78 15 94/61 99 07/26/18 02:16 98.8 F 87 18 111/82 97 07/25/18 23:50 67 18 114/71 97 07/25/18 22:10 98.6 F 69 18 107/69 96 Intake and Output 07/25/18 07/26/18 07/26/18 22:59 06:59 14:59 Other: Voiding Method Toilet # Voids 1 Weight 104.326 kg Results 07/25/18 22:40 07/26/18 09:54 Cardiac Enzymes 07/25/18 07/25/18 07/26/18 Range/Units 22:40 22:40 05:25 AST 23 (17-59) U/L Troponin I <0.012 <0.012 (0.000-0.034) ng/mL CBC 07/25/18 Range/Units 22:40 WBC 10.4 (3.8-10.6) k/uL RBC 4.32 (4.30-5.90) m/uL Hgb 13.2 (13.0-17.5) gm/dL Hct 39.7 (39.0-53.0) % Plt Count 303 (150-450) k/uL Comprehensive Metabolic Panel 07/25/18 Range/Units 22:40 Sodium 139 (137-145) mmol/L Potassium 4.2 (3.5-5.1) mmol/L Chloride 104 (98-107) mmol/L Carbon Dioxide 23 (22-30) mmol/L BUN 34 H (9-20) mg/dL Creatinine 2.28 H (0.66-1.25) mg/dL Glucose 136 H (74-99) mg/dL Calcium 9.5 (8.4-10.2) mg/dL AST 23 (17-59) U/L ALT 23 (21-72) U/L Alkaline Phosphatase 84 (38-126) U/L Total Protein 7.6 (6.3-8.2) g/dL Albumin 4.5 (3.5-5.0) g/dL Current Medications Generic Name Dose Route Start Last Admin Trade Name Freq PRN Reason Stop Dose Admin Aspirin 81 mg 07/27/18 09:00 Aspirin PO DAILY [facility] Atorvastatin Calcium 80 mg 07/26/18 21:00 Lipitor PO HS [facility] Insulin Aspart 60 unit 07/26/18 17:30 Novolog Mix 70-30 Vial SQ AC-SUPPER RAFAEL Insulin Aspart 60 unit 07/26/18 07:30 Novolog Mix 70-30 Vial SQ AC-BRKFST RAFAEL Insulin Aspart 20 unit 07/26/18 12:30 Novolog Mix 70-30 Vial SQ AC-LUNCH [facility] Lidocaine 1 patch 07/26/18 09:00 Lidoderm TOPICAL DAILY [facility] Lisinopril 20 mg 07/26/18 09:00 Zestril PO DAILY [facility] Nitroglycerin 0.4 mg 07/26/18 01:39 Nitrostat SUBLINGUAL Q5M PRN Chest Pain Triamterene/HCTZ 1 each 07/26/18 09:00 Dyazide PO DAILY [facility] Intake and Output 07/25/18 07/26/18 07/26/18 22:59 06:59 14:59 Other: Voiding Method Toilet # Voids 1 Weight 104.326 kg 07/25/18 22:40 07/25/18 22:40
[2018-07-26 11:47] LABS: Glucose,Whole Blood 144 mg/dL (75-99)
[2018-07-26 16:33] LABS: Glucose,Whole Blood 113 mg/dL (75-99)
[2018-07-26 16:45] VITALS: BP 135/89; PULSE 64; TEMP 97.5
[2018-07-26] MEDS ORDERED: ATORVASTATIN 80 MG TAB PO SCH (21:00)
[2018-07-27] MEDS ORDERED: ASPIRIN 325 MG TAB PO SCH (09:00)
[2018-07-27] MEDS ORDERED: ASPIRIN 81 MG PO SCH (09:00)
--- NOTE | 2018-07-28 16:47 | P.HPIM ---
History of Present Illness H&P Date: 07/26/18 Chief Complaint: Chest tightness Patient is a 62-year-old male with a known history of hypertension, diabetes type 2, coronary artery disease with history of CABG, history of LA, osteoarthritis and obstructive sleep apnea came to the ER with complaints of chest discomfort.He states starting on Tuesday night while camping he noticed a 80 achy sensation in the left flank region. At times the pain would radiate up the spine and at one point he felt a tightness in the mid-sternal region. This chest discomfort was brief lasting only a few seconds. He was seen in ER Tuesday and given a prescription for zanaflex. He took one Tuesday morning and slept most of the day. Then in the evening before dinner he took another one and shortly thereafter he started to feel extremely light headed, weak and fatigued. His daughter checked his blood pressure reading were quite low in the 60-70's systolic. Upon arrival to the emergency department blood pressure was 107/69. He was also found to be in acute kidney injury. Patient otherwise denied any complaints of shortness of breath. No commerce of nausea vomiting or diaphoresis or palpitations. No leg swelling. Creatinine was 2.28 on admission and improved to 1.37, WBC 10.4, hemoglobin 13.2 Sodium 140 and potassium 4.9 Troponin 2 negative. D-dimer is not elevated. EKG showed normal sinus rhythm with no segment ST-T wave changes. Acute LA. He recently underwent a Lexiscan stress test in the office March 2018 that was negative for reversible cardiac ischemia. CT abdomen pelvis showed fluid and gas filled small bowel loops are nonspecific but could represent enteritis or ileus in the appropriate clinical setting. Patient currently denied any flank pain. Review of Systems Constitutional: Patient denies any fever or chills . No generalized weakness or weight loss. Abdomen: Patient denied nausea vomiting and diarrhea and abdominal pain. Cardiovascular: Patient denies any chest pain or short of breath no palpitations. Respiratory: patient denied any cough is from production. No shortness of breath Neurologic: Patient denied any numbness or tingling headache. Musculoskeletal: Patient denies any complaints of joint swelling or deformity. Dizziness and lightheadedness Skin: Negative Psychiatric: Negative Endocrine: No heat or cold intolerance. No recent weight gain. Genitourinary: No dysuria or hematuria. All other 14 point ROS negative except the above Past Medical History Past Medical History: CVA/TIA, Diabetes Mellitus, Hyperlipidemia, Hypertension, Myocardial Infarction ([place]), Osteoarthritis (OA), Sleep Apnea/CPAP/BIPAP Additional Past Medical History / Comment(s): supposed to use CPAP Last Myocardial Infarction Date:: 2006 History of Any Multi-Drug Resistant Organisms: None Reported Past Surgical History: Coronary Bypass/CABG, Heart Catheterization, Hernia Repair, Orthopedic Surgery Additional Past Surgical History / Comment(s): left and right total hip rep lacement, carpal tunnel, arthroscopy, hemorrhoidectomy, triple bypass 2006, zora fundoplasty Past Anesthesia/Blood Transfusion Reactions: Previous Problems w/ Anesthesia Additional Past Anesthesia/Blood Transfusion Reaction / Comment(s): some kind of problem w/intubation w/cabg, but has had surgery since w/no problems Past Psychological History: No Psychological Hx Reported Smoking Status: Never smoker Past Alcohol Use History: None Reported Past Drug Use History: None Reported - Past Family History Mother Family Medical History: Cancer Brother(s) Family Medical History: Cancer Medications and Allergies Home Medications Medication Instructions Recorded Confirmed Type Atorvastatin [Lipitor] 80 mg PO HS 08/27/13 07/25/18 History Insulin NPH Hum/Reg Insulin Hm 20 unit SQ AC-LUNCH 01/12/17 07/25/18 History [NovoLIN 70-30 100 UNIT/ML VIAL] Insulin NPH Hum/Reg Insulin Hm 60 unit SQ AC-BRKFST 01/12/17 07/25/18 History [NovoLIN 70-30 100 UNIT/ML VIAL] Insulin NPH Hum/Reg Insulin Hm 60 unit SQ AC-SUPPER 01/12/17 07/25/18 History [NovoLIN 70-30 100 UNIT/ML VIAL] Aspirin EC [Ecotrin Low Dose] 81 mg PO DAILY #30 tablet. 02/09/18 07/25/18 Rx Lidocaine 5% Patch [Lidoderm 5% 1 patch TOPICAL DAILY #30 patch 07/24/18 07/25/18 Rx Patch] tiZANidine HCL 4 mg PO TID PRN #30 capsule 07/26/18 07/25/18 Rx Allergies Allergy/AdvReac Type Severity Reaction Status Date / Time No Known Allergies Allergy Verified 07/26/18 02:47 Physical Exam Vitals: Vital Signs Temp Pulse Pulse Pulse Resp BP BP 07/26/18 12:00 97.9 F 63 18 107/69 07/26/18 08:00 97.9 F 70 18 114/73 07/26/18 02:39 98.1 F 78 15 94/61 07/26/18 02:16 98.8 F 87 18 111/82 07/25/18 23:50 67 18 114/71 07/25/18 22:10 98.6 F 69 18 107/69 Pulse Ox 07/26/18 12:00 97 07/26/18 08:00 93 L 07/26/18 02:39 99 07/26/18 02:16 97 07/25/18 23:50 97 07/25/18 22:10 96 Intake and Output 07/25/18 07/26/18 07/26/18 22:59 06:59 14:59 Other: Voiding Method Toilet Toilet # Voids 1 Weight 104.326 kg PHYSICAL EXAMINATION: Patient is lying in the bed comfortably, no acute distress, awake alert and orie nted.. HEENT: Normocephalic. Neck is supple. Pupils reactive. Nostrils clear. Oral cavity is moist. Ears reveal no drainage. Neck reveals no JVD, carotid bruits, or thyromegaly. CHEST EXAMINATION: Trachea is central. Symmetrical expansion. Lung garcia clear to auscultation and percussion. CARDIAC: Normal S1, S2 with no gallops. No murmurs ABDOMEN: Soft. Bowel sounds normal. No organomegaly. No abdominal bruits. Extremities: reveal no edema. No clubbing or cyanosis Neurologically awake, alert, oriented x3 with well-coordinated movements. No focal deficits noted Skin: No rash or skin lesions. Psychiatric: Coperative. Nonsuicidal Musculoskeletal: No joint swelling or deformity. Normal range of motion. Results CBC & Chem 7: 07/25/18 22:40 07/26/18 09:54 Labs: Abnormal Lab Results - Last 24 Hours (Table) 07/25/18 07/25/18 07/26/18 Range/Units 22:40 22:40 00:00 D-Dimer 0.60 H (<0.60) mg/L FEU Chloride (98-107) mmol/L BUN 34 H (9-20) mg/dL Creatinine 2.28 H (0.66-1.25) mg/dL Glucose 136 H (74-99) mg/dL POC Glucose (mg/dL) (75-99) mg/dL LDL Cholesterol, Calc (0-99) mg/dL HDL Cholesterol (40-60) mg/dL Urine Protein Trace H (Negative) 07/26/18 07/26/18 07/26/18 Range/Units 06:50 09:54 11:43 D-Dimer (<0.60) mg/L FEU Chloride 108 H (98-107) mmol/L BUN 32 H (9-20) mg/dL Creatinine 1.37 H (0.66-1.25) mg/dL Glucose 134 H (74-99) mg/dL POC Glucose (mg/dL) 126 H 144 H (75-99) mg/dL LDL Cholesterol, Calc 101 H (0-99) mg/dL HDL Cholesterol 36 L (40-60) mg/dL Urine Protein (Negative) Thrombosis Risk Factor Assmnt - DVT/VTE Prophylaxis DVT/VTE Prophylaxis: Pharmacologic Prophylaxis ordered - Choose All That Apply Any of the Below Risk Factors Present?: Yes Each Factor Represents 1 point: Obesity (BMI >25), Varicose veins Other Risk Factors: Yes Each Risk Factor Represents 2 Points: Age 61-74 years Other congenital or acquired thrombophilia - If yes, enter type in comment: No Thrombosis Risk Factor Assessment Total Risk Factor Score: 4 Thrombosis Risk Factor Assessment Level: Moderate Risk Assessment and Plan Assessment: Dizziness and lightheadedness likely due to hypotension. Improved now Acute kidney injury most likely prerenal secondary to hypotension, volume depletion and also on diuretics. Creatinine level II.28 on admission Hypertension. Currently not hypertensive Diabetes type 2 insulin-dependent History of LA Carotid artery disease with history of CABG Osteoarthritis Objective sleep apnea on CPAP. Currently not using Hyperlipidemia History of Zora fundoplasty History of CVA/TIA. No residual weakness. DVT prophylaxis Plan: Patient is being continued on IV hydration with normal saline. Hold Dyazide and lisinopril. Currently patient is not hypotensive and converted with diabetic management. Left flank pain has resolved. Ultrasound of the renal showed no evidence of hydronephrosis. Patient was seen by nephrology and cardiology. Further conditions based on the clinical course. Time with Patient: Greater than 30
--- NOTE | 2018-07-28 16:49 | P.DS ---
Providers Date of admission: 07/26/18 01:43 Expected date of discharge: 07/26/18 Attending physician: Jose Carlos New Consults: 07/26/18 01:39 Consult Physician Routine Consulting Provider: Jr Rolle Consult Reason/Comments: anginal episode Do you want consulting provider notified?: Yes Consult Physician Urgent Consulting Provider: Ilda Jimenez Consult Reason/Comments: acute kidney injury Do you want consulting provider notified?: Yes Primary care physician: Nathan Ta Hospital Course: Discharge diagnosis Dizziness and lightheadedness likely due to hypotension. Improved now Acute kidney injury most likely prerenal secondary to hypotension, volume depletion and also on diuretics. Creatinine level II.28 on admission Hypertension. Currently not hypertensive Diabetes type 2 insulin-dependent History of IN Carotid artery disease with history of CABG Osteoarthritis Objective sleep apnea on CPAP. Currently not using Hyperlipidemia History of Yin fundoplasty History of CVA/TIA. No residual weakness. DVT prophylaxis Hospital course Patient is a 62-year-old male with a known history of hypertension, diabetes type 2, coronary artery disease with history of CABG, history of IN, osteoarthritis and obstructive sleep apnea came to the ER with complaints of chest discomfort.He states starting on Tuesday night while camping he noticed a 80 achy sensation in the left flank region. At times the pain would radiate up the spine and at one point he felt a tightness in the mid-sternal region. This chest discomfort was brief lasting only a few seconds. He was seen in ER Tuesday night and given a prescription for zanaflex. He took one Tuesday morning and slept most of the day. Then in the evening before dinner he took another one and shortly thereafter he started to feel extremely light headed, weak and fatigued. His daughter checked his blood pressure reading were quite low in the 60-70's systolic. Upon arrival to the emergency department blood pressure was 107/69. He was also found to be in acute kidney injury. Patient otherwise denied any complaints of shortness of breath. No commerce of nausea vomiting or diaphoresis or palpitations. No leg swelling. Creatinine was 2.28 on admission and improved to 1.37, WBC 10.4, hemoglobin 13.2 Sodium 140 and potassium 4.9 Troponin 2 negative. D-dimer is not elevated. EKG showed normal sinus rhythm with no segment ST-T wave changes. Acute IN. He recently underwent a Lexiscan stress test in the office March 2018 that was negative for reversible cardiac ischemia. CT abdomen pelvis showed fluid and gas filled small bowel loops are nonspecific but could represent enteritis or ileus in the appropriate clinical setting. Patient currently denied any flank pain. Patient was continued on IV hydration with normal saline. Hold Dyazide and lisinopril. Blood pressure is currently improved. Patient denied any complains of dizziness or lightheadedness. Left flank pain has resolved. Ultrasound of the renal showed no evidence of hydronephrosis. Patient was seen by nephrology and cardiology. No further workup recommended at this time. Patient was advised to continue to hold blood pressure medications until follow-up with his primary care physician during next 3-5 days. Patient is stable to be discharged home. PHYSICAL EXAMINATION: Patient is lying in the bed comfortably, no acute distress, awake alert and oriented.. HEENT: Normocephalic. Neck is supple. Pupils reactive. Nostrils clear. Oral cavity is moist. Ears reveal no drainage. Neck reveals no JVD, carotid bruits, or thyromegaly. CHEST EXAMINATION: Trachea is central. Symmetrical expansion. Lung garcia clear to auscultation and percussion. CARDIAC: Normal S1, S2 with no gallops. No murmurs ABDOMEN: Soft. Bowel sounds normal. No organomegaly. No abdominal bruits. Extremities: reveal no edema. No clubbing or cyanosis Neurologically awake, alert, oriented x3 with well-coordinated movements. No focal deficits noted Skin: No rash or skin lesions. Psychiatric: Coperative. Nonsuicidal Musculoskeletal: No joint swelling or deformity. Normal range of motion. Vital Signs Temp Pulse Pulse Pulse Resp BP BP 07/26/18 08:00 97.9 F 70 18 114/73 07/26/18 02:39 98.1 F 78 15 94/61 07/26/18 02:16 98.8 F 87 18 111/82 07/25/18 23:50 67 18 114/71 07/25/18 22:10 98.6 F 69 18 107/69 Pulse Ox 07/26/18 08:00 93 L 07/26/18 02:39 99 07/26/18 02:16 97 07/25/18 23:50 97 07/25/18 22:10 96 Intake and Output 07/25/18 07/26/18 07/26/18 22:59 06:59 14:59 Other: Voiding Method Toilet # Voids 1 Weight 104.326 kg Patient Condition at Discharge: Fair Plan - Discharge Summary Discharge Rx Participant: No New Discharge Prescriptions: Continue Atorvastatin [Lipitor] 80 mg PO HS Insulin NPH Hum/Reg Insulin Hm [NovoLIN 70-30 100 UNIT/ML VIAL] 20 unit SQ AC-LUNCH Insulin NPH Hum/Reg Insulin Hm [NovoLIN 70-30 100 UNIT/ML VIAL] 60 unit SQ AC-BRKFST Insulin NPH Hum/Reg Insulin Hm [NovoLIN 70-30 100 UNIT/ML VIAL] 60 unit SQ AC-SUPPER Aspirin EC [Ecotrin Low Dose] 81 mg PO DAILY #30 tablet. Lidocaine 5% Patch [Lidoderm 5% Patch] 1 patch TOPICAL DAILY #30 patch Changed tiZANidine HCL 4 mg PO TID PRN #30 capsule PRN Reason: Spasms Discontinued Triamterene-Hctz 37.5-25Mg [Dyazide 37.5-25 Capsule] 1 cap PO DAILY #90 capsule Lisinopril 20 mg PO DAILY Discharge Medication List Atorvastatin [Lipitor] 80 mg PO HS 08/27/13 [History] Insulin NPH Hum/Reg Insulin Hm [NovoLIN 70-30 100 UNIT/ML VIAL] 20 unit SQ AC- LUNCH 01/12/17 [History] Insulin NPH Hum/Reg Insulin Hm [NovoLIN 70-30 100 UNIT/ML VIAL] 60 unit SQ AC- BRKFST 01/12/17 [History] Insulin NPH Hum/Reg Insulin Hm [NovoLIN 70-30 100 UNIT/ML VIAL] 60 unit SQ AC- SUPPER 01/12/17 [History] Aspirin EC [Ecotrin Low Dose] 81 mg PO DAILY #30 tablet. 02/09/18 [Rx] Lidocaine 5% Patch [Lidoderm 5% Patch] 1 patch TOPICAL DAILY #30 patch 07/24/18 [Rx] tiZANidine HCL 4 mg PO TID PRN #30 capsule 07/26/18 [Rx] Follow up Appointment(s)/Referral(s): Kelton José MD [STAFF PHYSICIAN] - 1 Week Nathan Ta DO [Primary Care Provider] - 1-2 days Joey Roa DO [STAFF PHYSICIAN] - 1 Week Patient Instructions/Handouts: Acute Kidney Injury (GEN) Discharge Disposition: HOME SELF-CARE
== END 2018-07-26 17:09 | disposition home or self-care (01) ==
LOC: EC 22:02 → 1SOBS 07-26 01:43
PROVIDERS: ADMIT Internal Medicine; ATTEND Internal Medicine
DX: N17.9 Acute kidney failure, unspecified (principal); R42 Dizziness and giddiness; E86.9 Volume depletion, unspecified; I95.2 Hypotension due to drugs; T50.2X5A Adverse effect of carbonic-anhydrase inhibitors, benzothiadiazides and other diuretics, initial encounter; T46.4X5A Adverse effect of angiotensin-converting-enzyme inhibitors, initial encounter; R07.89 Other chest pain; R55 Syncope and collapse; I25.10 Atherosclerotic heart disease of native coronary artery without angina pectoris; I10 Essential (primary) hypertension; E78.5 Hyperlipidemia, unspecified; E11.9 Type 2 diabetes mellitus without complications; G47.33 Obstructive sleep apnea (adult) (pediatric); Z99.89 Dependence on other enabling machines and devices; M19.90 Unspecified osteoarthritis, unspecified site; R10.9 Unspecified abdominal pain; H53.489 Generalized contraction of visual field, unspecified eye; M54.9 Dorsalgia, unspecified; R80.9 Proteinuria, unspecified; E66.9 Obesity, unspecified; Z68.37 Body mass index [BMI] 37.0-37.9, adult; I83.90 Asymptomatic varicose veins of unspecified lower extremity; Z79.82 Long term (current) use of aspirin; Z79.4 Long term (current) use of insulin; Z79.899 Other long term (current) drug therapy; Z86.73 Personal history of transient ischemic attack (TIA), and cerebral infarction without residual deficits; I25.2 Old myocardial infarction; Z95.1 Presence of aortocoronary bypass graft; Z96.641 Presence of right artificial hip joint; Z80.9 Family history of malignant neoplasm, unspecified
CPT/HCPCS: 96360; 96361; 99285; 36415; 94760; 85379; 80061; 80053; 80048; 83605; 84484 ×2; 85025; 81003; 74176; G0378

== ENCOUNTER → 2018-08-16 | Outpatient (CLI) | payer MEDICARE ==
[2018-08-16 18:44] LABS: African American GFR (CKD) 81.8 (60.0-200.0); BUN/Creat Ratio 14.55 Ratio (12.00-20.00); Calcium 9.2 mg/dL (8.7-10.3); Magnesium 1.7 mg/dL (1.5-2.4); Potassium 4.3 mmol/L (3.5-5.5)
== END | disposition home or self-care (01) ==
LOC: LABWHC1 11:05
PROVIDERS: ATTEND Physician Assistant
DX: I10 Essential (primary) hypertension (principal)
CPT/HCPCS: 36415; 80048; 83735

== ENCOUNTER → 2019-12-14 | Day surgery (SDC) | payer MEDICARE ==
[2019-12-12 15:47] VITALS: BMI 35.5
[~2019-12-14] MED LIST: ALPRAZolam 0.25 MG TAB PO PRN; ALPRAZolam 0.5 MG TAB PO PRN; ASPIRIN 325 MG TAB PO STA; INSULIN ASPART (NovoLOG) 100 UNIT/ML VIAL SQ ONE; INSULIN ASPART (NovoLOG) 100 UNIT/ML VIAL SQ SCH; IOPAMIDOL-370 125ML BTL INJ ONE; LIDOCAINE 1% INJ 10MG/ML (20 ML MDV) SQ ONE; MIDAZOLAM 2 MG/2 ML VIAL IV ONE; NITROGLYCERIN SL TABS 0.4 MG TAB SUBLINGUAL PRN; RX INFO: IV CONTRAST WAS GIVEN 1 EACH MISC MISCELLANE PRN; SODIUM CHLORIDE 0.9% 1,000 ML IV SCH; SODIUM CHLORIDE 0.9% 1,000 ML in EMPTY BAG 1 BAG IV ONE
[2019-12-14 09:25] LABS: Glucose,Whole Blood 271 mg/dL (75-99)
[2019-12-14 09:33] VITALS: RESP 18; TEMP 98.1
[2019-12-14 12:30] LABS: Glucose,Whole Blood 201 mg/dL (75-99)
--- NOTE | 2019-12-14 13:10 | CC ---
CARDIAC CATHETERIZATION REPORT DATE OF SERVICE: December 14, 2019 PERFORMING PHYSICIAN: Jr Rolle MD. PROCEDURE PERFORMED: 1. Selective left and right coronary angiogram. 2. CRUZ to LAD angiogram. 3. Radial artery bypass to ramus intermedius angiogram. 4. SVG to left circumflex angiogram. 5. Right common femoral artery angiogram. INDICATION: This is a 64-year-old gentleman with history of coronary artery disease and prior coronary artery bypass grafting with the last heart catheterization was performed in 2017 revealing severe critical disease involving the left main coronary artery with mild to moderate diffuse involving the right coronary artery with patent CRUZ to LAD and patent radial artery bypass to ramus intermedius, and patent SVG to left circumflex. The patient was seen recently by Dr. José in the office where he continues not feeling well. He was having symptoms of short of breath with exertion and also symptoms of being fatigue and tired. There was a concern about severe underlying coronary artery disease and because of that, a heart catheterization was advised. APPROACH: Right common femoral artery. COMPLICATIONS: None. LEVEL OF SEDATION: Moderate with sedation length of 30 minutes. PROCEDURE DESCRIPTION: After obtaining an informed consent, the patient was brought to the cardiac laborer road. The right common femoral artery was cannulated using micropuncture technique, the micropuncture wire passed easily. Then I placed a 6-Georgian sheath at the right common femoral artery. After that, I did selective left and right coronary angiogram. Selective left coronary angiogram was performed using JL4 catheter. Selective right coronary angiogram was performed using JR4 catheter. The radial artery bypass to the ramus intermedius and the SVG to left circumflex angiogram performed using the JR4 catheter. The CRUZ to LAD was not selectively injected through the Edouard Neil catheter in the left subclavian. After that I did selective right common femoral artery angiogram. The procedure was completed without any complication. SELECTIVE CORONARY ANGIOGRAM: 1. The left main is extremely calcified with eccentric lesion, appeared to be in the range of 80% to 90%. The left main bifurcates into left circumflex and left anterior descending artery. 2. The left circumflex is a moderate caliber vessel. The left circumflex proximally gives rise into an OM branch which appeared to have a critical lesion. The OM appeared to be 1.5 mm. 3. The left anterior descending artery is critically diseased in the midportion after the bifurcation of a large septal athletic turf worker branch. Beside the LAD has severe lesion in the proximal portion. 4. The right coronary artery is chronically occluded in from the ostium. CORONARY BYPASSES ANGIOGRAM: 1. CRUZ to LAD is patent. 2. The radial artery to ramus intermedius is patent. 3. The SVG to left circumflex is patent as well. CONCLUSION: 1. Severe triple-vessel coronary artery disease. 2. Patent CRUZ to LAD. 3. Patent radial artery bypass to ramus intermedius. 4. Patent SVG to left circumflex coronary artery. POSTPROCEDURE MANAGEMENT: 1. Given the above anatomy I advise maximized medical treatment including aggressive cholesterol control. 2. It was noticed that the patient was bradycardic throughout the procedure with heart rate dipping to the 30s. 3. I discussed his heart rate issues with Dr. José, who is going to follow up with the patient next week in the office. MMODL / IJN: [id number] /
--- NOTE | 2019-12-14 13:10 | LTR ---
DATE OF SERVICE: December 14, [address] Ta: Mr. Boris Bliss underwent today heart catheterization. The heart catheterization revealed severe triple-vessel coronary artery disease with the patency of all 3 bypasses. I advised maximize medical treatment including aggressive cholesterol control and assess for bradycardia as an outpatient. I want to thank you for allowing us to participate in his care and please do not hesitate to call if you have any questions or concern. Sincerely, MMODL / IJN: [id number] /
[2019-12-14 14:05] LABS: Glucose,Whole Blood 206 mg/dL (75-99)
[2019-12-14 17:12] VITALS: BP 112/67; PULSE 59
--- NOTE | 2019-12-18 09:34 | CDI ---
Date: 12.18.2019 CDS/Joggle Press Operator Name: Hanh Lafleur Phone: If any questions, call Samantha Macdonald [employer] [facility] at [phone] Patient Name: Boris Bliss Admit Date 12.14.19 Discharge Date: 12.14.19 ATTENTION: The [facility] Coding Staff appreciate your assistance in clarifying documentation. Please respond to the clarification below the line at the bottom and electronically sign. The [facility] Coding staff will review the response and follow-up if needed. Please note: Queries are made part of the Legal Health Record. If you have any questions, please contact the [employer] Lead. Dear Dr. José In order to code to the greatest specificity and for the greatest reimbursement I need the following information: In your H&P you have documented DM not controlled, please specify whether: __hyperglycemia __hypoglycemia Thank you for your kind consideration. Unable to determine MTDD
== END ==
LOC: CATHCVL 08:53
PROVIDERS: ATTEND Internal Medicine Interventional Cardiology
DX: I25.118 Atherosclerotic heart disease of native coronary artery with other forms of angina pectoris (principal); R00.1 Bradycardia, unspecified; R06.02 Shortness of breath; R53.83 Other fatigue; I10 Essential (primary) hypertension; E78.00 Pure hypercholesterolemia, unspecified; R41.3 Other amnesia; E11.69 Type 2 diabetes mellitus with other specified complication; I44.0 Atrioventricular block, first degree; E78.5 Hyperlipidemia, unspecified; I73.9 Peripheral vascular disease, unspecified; G47.33 Obstructive sleep apnea (adult) (pediatric); Z86.73 Personal history of transient ischemic attack (TIA), and cerebral infarction without residual deficits; Z95.1 Presence of aortocoronary bypass graft; Z79.899 Other long term (current) drug therapy; Z79.4 Long term (current) use of insulin; Z79.82 Long term (current) use of aspirin; Z98.890 Other specified postprocedural states; Z82.49 Family history of ischemic heart disease and other diseases of the circulatory system
CPT/HCPCS: 93455; C1769 ×4; C1894; J2250; J2001; Q9967

== ENCOUNTER 2021-01-12 22:29 | Emergency (ER) | payer MEDICARE ==
[2021-01-12 22:48] VITALS: TEMP 97.9
[2021-01-12] MEDS ORDERED: DIAZEPAM 5 MG/ML 2 ML INJ IVP STA (23:19)
[2021-01-12] MEDS ORDERED: NITROGLYCERIN SL TABS 0.4 MG TAB SUBLINGUAL STA (23:19)
[2021-01-12] MEDS ORDERED: GLUCAGON 1 MG/ML VIAL IVP STA (23:20)
--- NOTE | 2021-01-12 23:20 | ED ---
ENT HPI - General Chief complaint: Skin/Abscess/Foreign Body Stated complaint: feeling of something caught in throat Time Seen by Provider: 01/12/21 23:09 Source: patient, RN notes reviewed, old records reviewed Mode of arrival: ambulatory Limitations: no limitations - History of Present Illness Initial comments: This is a 65-year-old male to the ER for evaluation today. Patient presents today for evaluation of feeling like something is caught in his throat. Feels he can't breathe. He is very anxious. Patient has history of this before. Patient had all surgery for reflux which is just made it difficult for him to swallow really any food. Patient psychiatrist history of super small to be able to pass it. This is a she does happen before is had the Heimlich maneuver multiple times. Patient states he has some mild substernal chest pain but no other complaint complaint MD complaint: sore throat, difficulty swallowing, foreign body -: hour(s) Location: throat Severity: severe Severity scale (1-10): 10 Quality: sharp Consistency: constant Improves with: none Worsens with: swallowing Context-Epistaxis: history of similar Associated Symptoms: sore throat - Related Data Home Medications Medication Instructions Recorded Confirmed Atorvastatin [Lipitor] 80 mg PO HS 08/27/13 12/14/19 Insulin NPH Hum/Reg Insulin Hm 40 unit SQ AC-LUNCH 01/12/17 12/14/19 [NovoLIN 70-30 100 UNIT/ML VIAL] Insulin NPH Hum/Reg Insulin Hm 60 unit SQ AC-BRKFST 01/12/17 12/14/19 [NovoLIN 70-30 100 UNIT/ML VIAL] Insulin NPH Hum/Reg Insulin Hm 60 unit SQ AC-SUPPER 01/12/17 12/12/19 [NovoLIN 70-30 100 UNIT/ML VIAL] Ezetimibe [Zetia] 10 mg PO HS 12/12/19 12/14/19 Lisinopril-Hctz 20-12.5 mg 1 tab PO DAILY 12/12/19 12/14/19 [Zestoretic 20-12.5] Previous Rx's Medication Instructions Recorded Aspirin EC [Ecotrin Low Dose] 81 mg PO DAILY #30 tablet. 02/09/18 Allergies Allergy/AdvReac Type Severity Reaction Status Date / Time No Known Allergies Allergy Verified 01/12/21 22:48 Review of Systems ROS Statement: Those systems with pertinent positive or pertinent negative responses have been documented in the HPI. ROS Other: All systems not noted in ROS Statement are negative. Past Medical History Past Medical History: Coronary Artery Disease (CAD), CVA/TIA, Diabetes Mellitus, Hyperlipidemia, Hypertension, Myocardial Infarction ([place]), Osteoarthritis (OA), Skin Disorder, Sleep Apnea/CPAP/BIPAP Additional Past Medical History / Comment(s): stroke -no residual effects, no cpap used, hx hiatal hernia, eczema, Last Myocardial Infarction Date:: 2006 History of Any Multi-Drug Resistant Organisms: None Reported Past Surgical History: Coronary Bypass/CABG, Heart Catheterization, Hernia Repair, Joint Replacement, Orthopedic Surgery, Tonsillectomy Additional Past Surgical History / Comment(s): nicki total hip replacement, nicki carpal tunnel, arthroscopy rt knee, hemorrhoidectomy, triple bypass 2006, zora fundoplasty, deviated septum repair Past Anesthesia/Blood Transfusion Reactions: Previous Problems w/ Anesthesia Additional Past Anesthesia/Blood Transfusion Reaction / Comment(s): some kind of problem w/intubation w/cabg(MP[facility]), but has had surgery since w/no problems Past Psychological History: No Psychological Hx Reported Smoking Status: Never smoker Past Alcohol Use History: None Reported Past Drug Use History: None Reported - Past Family History Mother Family Medical History: Cancer Brother(s) Family Medical History: Cancer General Exam Limitations: no limitations General appearance: alert, in no apparent distress Head exam: Present: atraumatic, normocephalic, normal inspection Eye exam: Present: normal appearance, PERRL, EOMI. Absent: scleral icterus, conjunctival injection, periorbital swelling ENT exam: Present: normal exam, mucous membranes moist Neck exam: Present: normal inspection. Absent: tenderness, meningismus, lymphadenopathy Respiratory exam: Present: normal lung sounds bilaterally. Absent: respiratory distress, wheezes, rales, rhonchi, stridor Cardiovascular Exam: Present: regular rate, normal rhythm, normal heart sounds. Absent: systolic murmur, diastolic murmur, rubs, gallop, clicks GI/Abdominal exam: Present: soft, normal bowel sounds. Absent: distended, tenderness, guarding, rebound, rigid Extremities exam: Present: normal inspection, full ROM, normal capillary refill. Absent: tenderness, pedal edema, joint swelling, calf tenderness Back exam: Present: normal inspection Neurological exam: Present: alert, oriented X3, CN II-XII intact Psychiatric exam: Present: normal affect, normal mood Skin exam: Present: warm, dry, intact, normal color. Absent: rash Course Vital Signs 01/12/21 01/13/21 01/13/21 22:44 02:52 02:54 Temperature 97.9 F Pulse Rate 72 77 77 Respiratory 20 16 16 Rate Blood Pressure 177/83 159/95 159/95 O2 Sat by Pulse 98 98 97 Oximetry - Reevaluation(s) Reevaluation #1: Medical record is reviewed Patient symptoms are are unable to be improved here in the ER Patient informed results and questions answered Medical Decision Making - Medical Decision Making 65 male DF with esophageal foreign body on resolved. We do not have GI at this hospital still patient after travel to another facility for treatment and evaluation - Radiology Data Radiology results: report reviewed (Chest x-rays negative for acute disease), image reviewed Disposition Clinical Impression: Esophageal foreign body Disposition: HOME SELF-CARE Condition: Good Instructions (If sedation given, give patient instructions): Esophageal Foreign Body (ED) Is patient prescribed a controlled substance at d/c from ED?: No Referrals: Nathan Ta DO [Primary Care Provider] - 1-2 days
--- NOTE | 2021-01-12 23:57 | XR ---
EXAMINATION TYPE: XR chest 1V DATE OF EXAM: 01/12/2021 COMPARISON: 07/24/2018 HISTORY: Chest pain TECHNIQUE: 2 view FINDINGS: There is no heart failure nor confluent pneumonic infiltrate. Costophrenic angles are clear . There are no hilar masses. There are sternal wires. IMPRESSION: No active cardiopulmonary disease. No adverse change.
[2021-01-13] MEDS ORDERED: MAG HYDROX/AL HYDROX/SIMETH 30 ML, HYOSCYAMINE ELIXIR 10 ML, LIDOCAINE VISCOUS 2% 10 ML PO STA ×3 (00:45)
[2021-01-13] MEDS ORDERED: ONDANSETRON 4 MG/2 ML VIAL IVP STA (01:39)
[2021-01-13] MEDS ORDERED: LORazepam 2 MG/ML INJ IV STA (01:40)
[2021-01-13] MEDS ORDERED: SODIUM CHLORIDE 0.9% 1,000 ML IV STA (01:40)
[2021-01-13 02:53] VITALS: BP 159/95; PULSE 77; RESP 16
== END 2021-01-13 02:55 | disposition home or self-care (01) ==
LOC: EC 22:29
DX: T18.108A Unspecified foreign body in esophagus causing other injury, initial encounter (principal); I25.10 Atherosclerotic heart disease of native coronary artery without angina pectoris; E11.9 Type 2 diabetes mellitus without complications; E78.5 Hyperlipidemia, unspecified; I10 Essential (primary) hypertension; I25.2 Old myocardial infarction; M19.90 Unspecified osteoarthritis, unspecified site; Z79.4 Long term (current) use of insulin; Z79.82 Long term (current) use of aspirin; Z86.73 Personal history of transient ischemic attack (TIA), and cerebral infarction without residual deficits; Z95.1 Presence of aortocoronary bypass graft; Z90.89 Acquired absence of other organs; Z96.643 Presence of artificial hip joint, bilateral; X58.XXXA Exposure to other specified factors, initial encounter
CPT/HCPCS: 99284; 96374; 96375 ×3; 71045; J2060; J1610; J3360; J2405

== ENCOUNTER 2022-11-17 22:49 | Emergency (ER) | payer MEDICARE ==
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
[2022-11-18 01:06] LABS: Basophils # (A) 0.1 k/uL (0-0.2); Basophils % (A) 1 %; Eosinophils # (A) 0.3 k/uL (0-0.7); Eosinophils % (A) 4 %; HCT 41.5 % (39.0-53.0); Lymphocytes # (A) 2.3 k/uL (1.0-4.8); Lymphocytes % (A) 30 %; MCH 32.4 pg (25.0-35.0); MCHC 33.6 g/dL (31.0-37.0); MCV 96.5 fL (80.0-100.0); Mean Platelet Volume 8.2; Monocytes # (A) 0.4 k/uL (0-1.0); Monocytes % (A) 5 %; Neutrophils # (A) 4.5 k/uL (1.3-7.7); Neutrophils % (A) 59 %; Platelet Count 230 k/uL (150-450); RDW 13.9 % (11.5-15.5); WBC 7.7 k/uL (3.8-10.6)
--- NOTE | 2022-11-18 01:15 | CT ---
EXAM: CT Head Without Intravenous Contrast CLINICAL HISTORY: ITS.REASON CT Reason: head injury, minor, normal mental status TECHNIQUE: Axial computed tomography images of the head/brain without intravenous contrast. CTDI is 49.2 mGy and DLP is 1143.4 mGy-cm. This CT exam was performed using one or more of the following dose reduction techniques: automated exposure control, adjustment of the mA and/or kV according to patient size, and/or use of iterative reconstruction technique. COMPARISON: No relevant prior studies available. FINDINGS: Brain: No hemorrhage or mass effect. Ventricles: No hydrocephalus. Bones/joints: Unremarkable. Soft tissues: Unremarkable. Sinuses: No air fluid level. Mastoid air cells: Clear. IMPRESSION: No acute hemorrhage, hydrocephalus, or mass effect.
[2022-11-18 01:20] LABS: ALT 19 U/L (4-49); AST 23 U/L (17-59); African American GFR (CKD) >90 (>60 ml/min/1.73 sqM); Alkaline Phosphatase 61 U/L (38-126); Anion Gap 13 mmol/L; Blood Urea Nitrogen 25 mg/dL (9-20); Calcium 9.2 mg/dL (8.4-10.2); Carbon Dioxide 22 mmol/L (22-30); Chloride 104 mmol/L (98-107); Glucose 155 mg/dL (74-99); Magnesium 2.1 mg/dL (1.6-2.3); Non-African American GFR(CKD) 81 (>60 ml/min/1.73 sqM); Potassium 4.5 mmol/L (3.5-5.1); Sodium 139 mmol/L (137-145); Total Bilirubin 0.6 mg/dL (0.2-1.3); Total Protein 6.7 g/dL (6.3-8.2)
[2022-11-18 02:54] VITALS: BP 134/78; PULSE 69; RESP 16; TEMP 98.1
== END 2022-11-18 02:15 | disposition home or self-care (01) ==
LOC: EC 22:49
DX: S09.90XA Unspecified injury of head, initial encounter (principal); I44.1 Atrioventricular block, second degree; R00.1 Bradycardia, unspecified; E11.9 Type 2 diabetes mellitus without complications; E78.5 Hyperlipidemia, unspecified; I10 Essential (primary) hypertension; I25.10 Atherosclerotic heart disease of native coronary artery without angina pectoris; I25.2 Old myocardial infarction; G47.30 Sleep apnea, unspecified; Z95.1 Presence of aortocoronary bypass graft; Z79.4 Long term (current) use of insulin; Z79.899 Other long term (current) drug therapy; W18.09XA Striking against other object with subsequent fall, initial encounter
CPT/HCPCS: 36415; 70450; 80053; 83735; 85025; 93005; 99284

== ENCOUNTER 2022-12-02 12:55 | Day surgery (SDC) | payer MEDICARE ==
[2022-12-01 15:33] VITALS: BMI 30.7
[~2022-12-02 12:55] MED LIST changes: -ALPRAZolam 0.25 MG TAB PO PRN; -ALPRAZolam 0.5 MG TAB PO PRN; -ASPIRIN 325 MG TAB PO STA; -INSULIN ASPART (NovoLOG) 100 UNIT/ML VIAL SQ ONE; -INSULIN ASPART (NovoLOG) 100 UNIT/ML VIAL SQ SCH; -IOPAMIDOL-370 125ML BTL INJ ONE; +LACTATED RINGERS 1,000 ML IV SCH; -LIDOCAINE 1% INJ 10MG/ML (20 ML MDV) SQ ONE; -MIDAZOLAM 2 MG/2 ML VIAL IV ONE; -NITROGLYCERIN SL TABS 0.4 MG TAB SUBLINGUAL PRN; -RX INFO: IV CONTRAST WAS GIVEN 1 EACH MISC MISCELLANE PRN; -SODIUM CHLORIDE 0.9% 1,000 ML in EMPTY BAG 1 BAG IV ONE; +ceFAZolin 1 GM in SODIUM CHLORIDE 0.9% IRRIG BTL 250 ML IRRIGATION PRN; +fentaNYL (PF) 50 MCG/ML 2 ML AMP IV PRN
[2022-12-02 13:26] LABS: Glucose,Whole Blood 123 mg/dL (70-110)
[2022-12-02 13:37] VITALS: TEMP 97.9
[2022-12-02] MEDS ORDERED: fentaNYL (PF) 50 MCG/ML 2 ML AMP ONE (15:17)
[2022-12-02] MEDS ORDERED: MIDAZOLAM 2 MG/2 ML VIAL ONE (15:17)
[2022-12-02] MEDS ORDERED: IOPAMIDOL-370 100ML BTL INJ ONE (15:36)
[2022-12-02] MEDS ORDERED: LIDOCAINE 1% INJ 10MG/ML (20 ML MDV) ONE (15:57)
[2022-12-02] MEDS ORDERED: LIDOCAINE 1% INJ 10MG/ML (30 ML VIAL-PF) SQ ONE (15:59)
--- NOTE | 2022-12-02 16:42 | P.EPPROC ---
- EP Procedure Note Electrophysiology Procedure Note: Diagnosis Bradycardia with AV block and Sick Sinus Syndrome Patient has decayed teeth, multiple rib infection awaiting extraction Final procedure Externalized single-chamber pacemaker lead implanted via the right axillary vein Details Patient received IV antibiotics. Prepped and draped as a protocol Venography of the right axillary and subclavian venous system performed Patent right axillary and subclavian vein/SVC Axillary vein access obtained extrathoracic Sheath placed Passive lead [address] [facility] placed in the right heart Lead position the RV apex Good current of injury Sensing 2-3 mV Pacing threshold 0.5 V at 0.5 ms and pacing impedance 640 ohms Lead secured to the skin and then access site dressed with Biopatch Dressed Lead connected to the generator Single-chamber pacemaker generator secured to the skin and dressed Stable lead position on fluoroscopy Pacemaker programmed to VVI 40 BPM, noise reversion on, 5 V at 0.5 ms Patient tolerated the procedure well without any acute complications Plan Oral antibiotics Keflex 250 mg by mouth 3 times a day as long as the externalized pacemaker lead is in situ Proceed with dental extraction/conscious sedation with backup temporary pacing
[2022-12-02 17:03] VITALS: RESP 16
[2022-12-02 17:22] VITALS: PULSE 60
[2022-12-02 17:41] VITALS: BP 147/78
== END 2022-12-02 17:43 | disposition home or self-care (01) ==
LOC: CATHEP 12:55
PROVIDERS: ATTEND Internal Medicine Clinical Cardiac Electrophysiology
DX: I44.30 Unspecified atrioventricular block (principal); I49.5 Sick sinus syndrome; I25.10 Atherosclerotic heart disease of native coronary artery without angina pectoris; I10 Essential (primary) hypertension; E11.9 Type 2 diabetes mellitus without complications; E78.5 Hyperlipidemia, unspecified; I73.9 Peripheral vascular disease, unspecified; I48.91 Unspecified atrial fibrillation; G47.33 Obstructive sleep apnea (adult) (pediatric); K21.9 Gastro-esophageal reflux disease without esophagitis; Z79.899 Other long term (current) drug therapy; Z82.49 Family history of ischemic heart disease and other diseases of the circulatory system
CPT/HCPCS: 33210; C1892; C1898; C1769; C1786; J2250; J2001; J3010; Q9967

== ENCOUNTER 2022-12-16 12:40 | Day surgery (SDC) | payer MEDICARE ==
[2022-12-13 14:07] VITALS: BMI 30.7
[~2022-12-16 12:40] MED LIST changes: -LACTATED RINGERS 1,000 ML IV SCH; -SODIUM CHLORIDE 0.9% 1,000 ML IV SCH; +VANCOMYCIN 1,250 MG in SODIUM CHLORIDE 0.9% 250 ML IVPB STA; -fentaNYL (PF) 50 MCG/ML 2 ML AMP IV PRN
[2022-12-16 13:07] LABS: Glucose,Whole Blood 116 mg/dL (70-110)
[2022-12-16] MEDS: SODIUM CHLORIDE 0.9% 1,000 ML IV SCH ×3 (13:30→21:15)
[2022-12-16] MEDS ORDERED: KETAMINE HCL IN 0.9 % NACL 50 MG/5 ML SYRINGE ONE (16:09)
[2022-12-16] MEDS ORDERED: MIDAZOLAM 2 MG/2 ML VIAL ONE (16:09)
[2022-12-16] MEDS ORDERED: IOPAMIDOL-370 100ML BTL INJ ONE (16:34)
[2022-12-16] MEDS ORDERED: LIDOCAINE 1% INJ 10MG/ML (20 ML MDV) ONE ×2 (16:40)
[2022-12-16] MEDS ORDERED: LIDOCAINE 1% INJ 10MG/ML (20 ML MDV) SQ ONE ×2 (16:44→16:52)
--- NOTE | 2022-12-16 18:34 | P.EPPROC ---
- EP Procedure Note Electrophysiology Procedure Note: Diagnosis Symptomatic bradycardia, unprovoked, no triggering factors Severe sinus node dysfunction Advanced AV node block Not on any beta blockers or digoxin, normal potassium Procedure Dual-chamber pacemaker implantation with conduction system pacing (left bundle pacing) Left upper extremity venogram Extraction of right-sided externalized pacemaker lead Details Patient was brought to the EP lab in a fasting state. Written informed consent was obtained prior to the procedure. Conscious sedation provided by ROTOR CASTING MACHINE SETUP OPERATOR. IV antibiotics administered. Local anesthesia administered. A 4 cm incision made in the pectoral area. Subfascial pocket made. Venous accesses obtained Venous sheaths placed. Leads placed in the right heart. 2 sets of pacing cables were used; one for backup temporary pacing and the other for assessment of current of injury and signal analysis. A 52 cm atrial pacing lead was first positioned in the RV apex for temporary pacing during mapping and conduction system pacing Thresholds were interrogated and backup high output pacing was provided This atrial lead was then removed from the right ventricle and later positioned in the right atrial appendage and the permanent lead A deflected sheath was prepped. A coronary sinus decapolar catheter was placed within this sheath. The catheter along with the sheath was then passed into the right heart, the catheter was prolapsed across the tricuspid valve, into the right ventricle and then further into the right ventricular outflow tract across the pulmonic valve into the pulmonary artery. This sheath was slid over this decapolar catheter into the RVOT. Thereafter the catheter last sheath assembly was withdrawn from the RVOT along the septum to the mid septal area. The sheath was appropriately to to map the right ventricular aspect of the septum. The decapolar catheter was withdrawn, the sheath flushed again and the screw-in pacing lead placed within the sheath. Further detailed unipolar pace-mapping of the septum was performed and once the appropriate based morphology was obtained on lead V1, the lead was screwed into the septum. The lead was screwed in 4-5 returns at a time while monitoring the current of injury, the pacing impedance changes and the paced QRS morphology. The stimulus to peak of V6 QRS was measured at each step. Once a QR or rSR pattern of paced QRS in lead V1 was obtained, a left bundle signal was sought. Impedance was measured and thresholds were measured. An impedance drop of 100-200 ohms but above 550 ohms was targeted along with an unchanged vector of the current of injury signal. The final positioning was based on the QRS morphology in lead V1 and a short stimulus to peak of the V6 QRS of less than 90 ms. The sheath was withdrawn, stability of the pacing lead deep in the septum was confirmed on DOWNEY and INDONESIAN views and the sheath was slipped and an adequate heel was provided for the lead. Unipolar and bipolar electrogram morphology obtained Atrial lead positioned in the right atrial appendage. Sensing, thresholds and impedances measured following positioning and securing the lead in the right atrial appendage Left bundle lead parameters typical right bundle-branch block paced QRS morphology, stimulus-peak of V6 equals 64 ms Pacing impedance 784 ohms Pacing threshold 1 warted 0.5 ms, R waves 14 mV Medtronic 3830 lead Atrial lead parameters P waves 1.6 V, pacing impedance 413 ohms, pacing threshold 0.5 V at 0.5 ms Tendril STS Mcfarlane model #2088 TC Device cull grader [employer] [facility], Assurity MRI Dual-chamber pacemaker device connected to the leads and placed in the subfascial pocket Patient tolerated the procedure well without acute complications Pacemaker programming: DDDR 50-130 nominal AV delay Lead extraction: Externalized lead area was prepped and draped as per protocol Sutures removed Pacemaker generator suture removed Lead disconnected from the pacemaker can Stylet placed in the lead and with gradual manual retraction and counterclockwise rotation the lead was extracted successfully Blood pressure stable Wound was dressed per protocol
[2022-12-16] MEDS ORDERED: ACETAMINOPHEN IV (For NPO) 1,000 MG in EMPTY BAG 1 BAG IVPB ONE (19:00)
[2022-12-16] MEDS: LACTATED RINGERS 1,000 ML IV SCH (19:31)
[2022-12-16] MEDS: ACETAMINOPHEN TAB 325 MG TAB PO PRN (21:18)
[2022-12-17 01:55] VITALS: PULSE 58
[2022-12-17] MEDS: SODIUM CHLORIDE 0.9% 1,000 ML IV SCH (03:45)
[2022-12-17] MEDS: LACTATED RINGERS 1,000 ML IV SCH (03:45)
[2022-12-17] MEDS: ACETAMINOPHEN TAB 325 MG TAB PO PRN (04:09)
--- NOTE | 2022-12-17 07:57 | XR ---
EXAMINATION TYPE: XR chest 2V DATE OF EXAM: 12/17/2022 7:47 AM COMPARISON: Chest radiographs from 01/12/2021 TECHNIQUE: XR chest 2V Frontal and lateral views of the chest. CLINICAL INDICATION:Male, 67 years old with history of Lead placement check; FINDINGS: Lungs/Pleura: There is no evidence of pleural effusion, focal consolidation, or pneumothorax. Linear scarring and/or atelectasis within the left lung base. Pulmonary vascularity: Unremarkable. Heart/mediastinum: Cardiomediastinal silhouette is stable. Post-CABG changes. Two lead cardiac condu ction device overlying the left hemithorax with lead tips projecting over the right ventricle and rig ht atrium. Musculoskeletal: No acute osseous pathology. Midline sternotomy wires are noted and stable. IMPRESSION: Two lead cardiac conduction device overlying the left hemithorax with lead tips projecting over the r ight ventricle and right atrium.
--- NOTE | 2022-12-17 08:22 | P.DS ---
Providers Attending physician: Kelton José Primary care physician: Nathan [facility] Hospital Course: Patient is doing well. No chest discomfort dizziness lightheadedness Sitting comfortably in bed Lungs are clear no rhonchi no crackles Heart sounds are normal Pacing sites healed well Chest x-ray is within normal limits leads in stable position Twelve-lead EKG shows left bundle pacing Impression Coronary artery disease status post coronary artery bypass grafting Sick Sinus Syndrome Significant past AV node disease with bradycardia Status post dual-chamber pacemaker with conduction system pacing with left bundle pacing Plan discharge home today after checking pacemaker Add metoprolol succinate 50 mg by mouth daily Follow-up in the device clinic in one week Plan - Discharge Summary Discharge Rx Participant: Yes New Discharge Prescriptions: New Metoprolol Succinate [Toprol XL] 50 mg PO DAILY #90 tab No Action Atorvastatin [Lipitor] 80 mg PO HS Aspirin EC [Ecotrin Low Dose] 81 mg PO DAILY #30 tablet. Ezetimibe [Zetia] 10 mg PO HS metHOTREXate sodium 10 mg PO MO lisinopriL [Zestril] 5 mg PO DAILY metFORMIN HCL [Glucophage] 1,000 mg PO BID Pioglitazone [Actos] 15 mg PO DAILY Folic Acid 1 mg PO DAILY Dapagliflozin Propanediol [Farxiga] 5 mg PO DAILY Donepezil [Aricept] 5 mg PO HS Semaglutide [Ozempic] 2 mg SQ CARDONA Cephalexin [Keflex] 250 mg PO Q8HR Discharge Medication List Atorvastatin [Lipitor] 80 mg PO HS 08/27/13 [History] Aspirin EC [Ecotrin Low Dose] 81 mg PO DAILY #30 tablet. 02/09/18 [Rx] Ezetimibe [Zetia] 10 mg PO HS 12/12/19 [History] Dapagliflozin Propanediol [Farxiga] 5 mg PO DAILY 11/22/22 [History] Donepezil [Aricept] 5 mg PO HS 11/22/22 [History] Folic Acid 1 mg PO DAILY 11/22/22 [History] Pioglitazone [Actos] 15 mg PO DAILY 11/22/22 [History] Semaglutide [Ozempic] 2 mg SQ CARDONA 11/22/22 [History] lisinopriL [Zestril] 5 mg PO DAILY 11/22/22 [History] metFORMIN HCL [Glucophage] 1,000 mg PO BID 10/16/23 [History] metHOTREXate sodium 10 mg PO MO 11/22/22 [History] Cephalexin [Keflex] 250 mg PO Q8HR 12/13/22 [History] Metoprolol Succinate [Toprol XL] 50 mg PO DAILY #90 tab 12/16/22 [Rx] Follow up Appointment(s)/Referral(s): Kelton José MD [STAFF PHYSICIAN] - 1 Week Activity/Diet/Wound Care/Special Instructions: DEVICE CLINIC APPOINTMENT (AT [facility]): Tuesday12/28/22 @ 1:45 PM
[2022-12-17 09:13] VITALS: BP 157/88; RESP 18; TEMP 97.9
== END 2022-12-17 11:44 | disposition home or self-care (01) ==
LOC: CATHEP 12:40 → 6NMEDSUR 17:35 → CATHEP 12-17 11:44
PROVIDERS: ATTEND Internal Medicine Clinical Cardiac Electrophysiology
DX: I44.30 Unspecified atrioventricular block (principal); I25.10 Atherosclerotic heart disease of native coronary artery without angina pectoris; Z95.1 Presence of aortocoronary bypass graft; I49.5 Sick sinus syndrome; Z95.0 Presence of cardiac pacemaker; Z79.899 Other long term (current) drug therapy; Z79.82 Long term (current) use of aspirin; Z79.84 Long term (current) use of oral hypoglycemic drugs
CPT/HCPCS: 33208; 33234; 71046; C1769 ×2; C1892 ×2; C1730; C1887; C1898 ×2; J3370; J0690; J2001; Q9967

== ENCOUNTER 2024-02-01 22:32 | Emergency (ER) | payer MEDICARE ==
[2024-02-01 22:38] VITALS: RESP 18
--- NOTE | 2024-02-01 23:36 | ED ---
Extremity Problem HPI - General Chief complaint: Extremity Problem,Nontraumatic Stated complaint: Fall Time Seen by Provider: 02/01/24 23:02 Source: patient, RN notes reviewed Mode of arrival: ambulatory Limitations: no limitations - History of Present Illness Initial comments: This is a 68-year-old male who presents to the emergency department for right knee pain. His dog ran into his knee earlier today and he has had pain since. He is having difficulty fully bending and moving the leg and states that it is also difficult to ambulate. Denies sustaining any other injuries. Additionally, his daughter states that he has a cardiac history and she noticed swelling in his lower legs today. She would like his heart evaluated as well. Patient denies any chest pain or shortness of breath. Unsure if he is on diuretics and is also unsure if he has a history of CHF. - Related Data Home Medications Medication Instructions Recorded Confirmed Atorvastatin [Lipitor] 80 mg PO HS 08/27/13 12/16/22 Ezetimibe [Zetia] 10 mg PO HS 12/12/19 12/16/22 Dapagliflozin Propanediol [Farxiga] 5 mg PO DAILY 11/22/22 12/16/22 Donepezil [Aricept] 5 mg PO HS 11/22/22 12/16/22 Folic Acid 1 mg PO DAILY 11/22/22 12/16/22 Pioglitazone [Actos] 15 mg PO DAILY 11/22/22 12/16/22 Semaglutide [Ozempic] 2 mg SQ CARDONA 11/22/22 12/13/22 lisinopriL [Zestril] 5 mg PO DAILY 11/22/22 12/16/22 metFORMIN HCL [Glucophage] 1,000 mg PO BID 11/22/22 12/16/22 metHOTREXate sodium [Methotrexate] 10 mg PO MO 11/22/22 12/13/22 Cephalexin [Keflex] 250 mg PO Q8HR 12/13/22 12/16/22 Previous Rx's Medication Instructions Recorded Aspirin EC [Ecotrin Low Dose] 81 mg PO DAILY #30 tablet. 02/09/18 Metoprolol Succinate [Toprol XL] 50 mg PO DAILY #90 tab 12/16/22 Allergies Allergy/AdvReac Type Severity Reaction Status Date / Time No Known Allergies Allergy Verified 02/01/24 22:38 Review of Systems ROS Statement: Those systems with pertinent positive or pertinent negative responses have been documented in the HPI. ROS Other: All systems not noted in ROS Statement are negative. Past Medical History Past Medical History: Coronary Artery Disease (CAD), CVA/TIA, Diabetes Mellitus, Hyperlipidemia, Hypertension, Myocardial Infarction (AR), Osteoarthritis (OA), Skin Disorder, Sleep Apnea/CPAP/BIPAP Additional Past Medical History / Comment(s): stroke -no residual effects, no cpap used, hx hiatal hernia, eczema, RECENTLY HAD 8 TEETH REMOVED AND PUT ON ANTIBIOTICS BY DR. MONCADA Last Myocardial Infarction Date:: 2006 History of Any Multi-Drug Resistant Organisms: None Reported Past Surgical History: Coronary Bypass/CABG, Heart Catheterization, Hernia Repair, Joint Replacement, Orthopedic Surgery, Tonsillectomy Additional Past Surgical History / Comment(s): nicki total hip replacement, nicki carpal tunnel, arthroscopy rt knee, hemorrhoidectomy, triple bypass 2006, zora fundoplasty, deviated septum repair, TEMP. PACEMAKER 12/02/22 Past Anesthesia/Blood Transfusion Reactions: Previous Problems w/ Anesthesia Additional Past Anesthesia/Blood Transfusion Reaction / Comment(s): some kind of problem w/ extubation w/cabg(MPH)-stated had trouble have breathing tube removed after surgery, but has had general anesthesia since w/no problems Past Psychological History: No Psychological Hx Reported Smoking Status: Never smoker Past Alcohol Use History: None Reported Past Drug Use History: None Reported - Past Family History Mother Family Medical History: Cancer Brother(s) Family Medical History: Cancer General Exam Limitations: no limitations General appearance: alert, in no apparent distress Head exam: Present: atraumatic, normocephalic, normal inspection Respiratory exam: Present: normal lung sounds bilaterally. Absent: respiratory distress, wheezes, rales, rhonchi, stridor Cardiovascular Exam: Present: regular rate, normal rhythm, normal heart sounds. Absent: systolic murmur, diastolic murmur, rubs, gallop, clicks Extremities exam: Present: other (Tenderness to palpation over the right patella. No swelling or ecchymosis. Range of motion limited by pain. 2+ DP and PT pulses. No pitting edema bilaterally) Neurological exam: Present: alert, oriented X3, CN II-XII intact Psychiatric exam: Present: normal affect, normal mood Skin exam: Present: warm, dry, intact, normal color. Absent: rash Course Vital Signs 02/01/24 02/02/24 22:35 01:31 Temperature 98.7 F 97.9 F Pulse Rate 66 79 Respiratory 18 18 Rate Blood Pressure 153/77 120/74 O2 Sat by Pulse 95 98 Oximetry Medical Decision Making - Medical Decision Making This is a 68-year-old male who presents to the emergency department for right knee pain and lower extremity swelling. Was pt. sent in by a medical professional or institution? @ -No Did you speak to anyone other than the patient for history? @ -His daughter discussed the concerns about his legs being swollen. Did you review nursing and triage notes? @ -Yes, and I agree, it is accurate with regards to the patient's symptoms. Were old charts reviewed? @ -No Differential Diagnosis? @ -Differential Musculoskeletal Muscular strain, contusion, ligament sprain, fracture, arthritis, septic arthritis, bursitis, cellulitis, muscle spasm, nerve compression, DVT, arterial occlusion, herpes zoster, electrolyte abnormality, tumor.... This is not meant to be in all inclusive list EKG interpreted by me (3pts min.)? @ -EKG interpreted by me demonstrating the following: Electronic ventricular pacemaker. Ventricular rate 61 bpm, NH interval 192 ms, QRS duration 142 ms, QTc 466 ms. X-rays interpreted by me (1pt min.)? @ -Chest x-ray obtained, my interpretation identifies no localized consolidations or infiltrates. X-ray of the right knee obtained. My interpretation identifies no acute fractures. CT interpreted by me (1pt min.)? @ -Not obtained U/S interpreted by me (1pt. min.)? @ -Not obtained What testing was considered but not performed? (CT, X-rays, U/S, labs)? Why? @ -None What meds were considered but not given? Why? @ -None Did you discuss the management of the patient with other professionals? @ -No Did you reconcile home meds? @ -No Was smoking cessation discussed for >3mins.? @ -No Was critical care preformed (if so, how long)? @ -No Were there social determinants of health that impacted care today? How? (Homelessness, low income, unemployed, alcoholism, drug addiction, transportation, low edu. Level, literacy, decrease access to med. care, prison, rehab)? @ -No Was there de-escalation of care discussed even if they declined? (Discuss DNR or withdrawal of care, Hospice)? @ -No What co-morbidities impacted this encounter? (DM, HTN, Smoking, COPD, CAD, Cancer, CVA, Hep., AIDS, mental health diagnosis, sleep apnea, morbid obesity)? @ -CAD, osteoarthritis Was patient admitted / discharged? @ -Discharged. Lab work unremarkable. BNP is only 268. When I evaluated the patient he did not have any pitting edema. Advised that this could have been related to the patient being on his feet for too long. Advised they continue to monitor this and bring up their concerns with his door hanger and PCP. Chest x-ray revealed no acute process. X-ray of the right knee also revealed no acute findings. Knee immobilizer was applied. Advised he follow-up with orthopedics for reevaluation of the knee in the event further testing such as an MRI is indicated. Also advised ice and elevation. Patient discharged home in stable condition. Case discussed with ED attending Dr. Mcrae. Return precautions reviewed in depth, the patient is instructed to return to the emergency department with any new, worsening, or concerning symptoms. Patient verbalized understanding. Undiagnosed new problem with uncertain prognosis? @ -None Drug Therapy requiring intensive monitoring for toxicity (Heparin, Nitro, Insulin, Cardizem)? @ -None Were any procedures done? @ -None Diagnosis/symptom? @ -Right knee sprain, history of leg swelling Acute, or Chronic, or Acute on Chronic? @ -Acute Uncomplicated (without systemic symptoms) or Complicated (systemic symptoms)? @ -Uncomplicated Side effects of treatment? @ -None Exacerbation, Progression, or Severe Exacerbation] @ -Not applicable Poses a threat to life or bodily function? @ -No - Lab Data Result diagrams: 02/01/24 23:34 02/01/24 23:34 Lab Results 02/01/24 02/01/24 Range/Units 23:34 23:34 WBC 9.7 (3.8-10.6) k/uL RBC 5.01 (4.30-5.90) m/uL Hgb 15.5 (13.0-17.5) gm/dL Hct 46.9 (39.0-53.0) % MCV 93.6 (80.0-100.0) fL MCH 30.9 (25.0-35.0) pg MCHC 33.0 (31.0-37.0) g/dL RDW 12.7 (11.5-15.5) % Plt Count 188 (150-450) k/uL MPV 7.4 Neutrophils % 49 % Lymphocytes % 29 % Monocytes % 6 % Eosinophils % 12 % Basophils % 1 % Neutrophils # 4.8 (1.3-7.7) k/uL Lymphocytes # 2.8 (1.0-4.8) k/uL Monocytes # 0.6 (0-1.0) k/uL Eosinophils # 1.2 H (0-0.7) k/uL Basophils # 0.1 (0-0.2) k/uL Sodium 137 (137-145) mmol/L Potassium 5.0 (3.5-5.1) mmol/L Chloride 110 H (98-107) mmol/L Carbon Dioxide 19 L (22-30) mmol/L Anion Gap 8 mmol/L BUN 26 H (9-20) mg/dL Creatinine 1.08 (0.66-1.25) mg/dL Est GFR (CKD-EPI)AfAm 81 (>60 ml/min/1.73 sqM) Est GFR (CKD-EPI)NonAf 70 (>60 ml/min/1.73 sqM) Glucose 194 H (74-99) mg/dL Calcium 9.5 (8.4-10.2) mg/dL Total Bilirubin 0.6 (0.2-1.3) mg/dL AST 21 (17-59) U/L ALT 16 (4-49) U/L Alkaline Phosphatase 75 (38-126) U/L NT-Pro-B Natriuret Pep 268 pg/mL Total Protein 7.3 (6.3-8.2) g/dL Albumin 4.5 (3.5-5.0) g/dL - Radiology Data Radiology results: report reviewed, image reviewed Disposition Clinical Impression: Right knee injury, Leg swelling Disposition: HOME SELF-CARE Instructions (If sedation given, give patient instructions): Knee Sprain (ED) Additional Instructions: Return to the emergency department with any new, worsening, or concerning symptoms. Apply ice and elevate the leg when seated. Use a knee immobilizer or an [id number] knee brace as needed. Follow-up with orthopedics. Is patient prescribed a controlled substance at d/c from ED?: No Referrals: Nathan Ta DO [Primary Care Provider] - 1-2 days Carlos Singh DO [Doctor of Osteopathic Medicine] - 1-2 days Time of Disposition: 01:04
[2024-02-01 23:43] LABS: Basophils # (A) 0.1 k/uL (0-0.2); Basophils % (A) 1 %; Eosinophils # (A) 1.2 k/uL (0-0.7); Eosinophils % (A) 12 %; HCT 46.9 % (39.0-53.0); HGB 15.5 gm/dL (13.0-17.5); Lymphocytes # (A) 2.8 k/uL (1.0-4.8); Lymphocytes % (A) 29 %; MCH 30.9 pg (25.0-35.0); MCV 93.6 fL (80.0-100.0); Mean Platelet Volume 7.4; Monocytes # (A) 0.6 k/uL (0-1.0); Monocytes % (A) 6 %; Neutrophils # (A) 4.8 k/uL (1.3-7.7); Neutrophils % (A) 49 %; Platelet Count 188 k/uL (150-450); RBC 5.01 m/uL (4.30-5.90); RDW 12.7 % (11.5-15.5); WBC 9.7 k/uL (3.8-10.6)
[2024-02-02 00:05] LABS: ALT 16 U/L (4-49); AST 21 U/L (17-59); African American GFR (CKD) 81 (>60 ml/min/1.73 sqM); Albumin 4.5 g/dL (3.5-5.0); Alkaline Phosphatase 75 U/L (38-126); Anion Gap 8 mmol/L; Blood Urea Nitrogen 26 mg/dL (9-20); Calcium 9.5 mg/dL (8.4-10.2); Carbon Dioxide 19 mmol/L (22-30); Chloride 110 mmol/L (98-107); Glucose 194 mg/dL (74-99); Non-African American GFR(CKD) 70 (>60 ml/min/1.73 sqM); Sodium 137 mmol/L (137-145); Total Bilirubin 0.6 mg/dL (0.2-1.3); Total Protein 7.3 g/dL (6.3-8.2)
[2024-02-02 00:14] LABS: NT-Pro-B-Type Natriuretic Pept 268 pg/mL
--- NOTE | 2024-02-02 00:47 | XR ---
EXAM: XR Chest, 2 Views CLINICAL HISTORY: ITS.REASON XR Reason: Leg swelling TECHNIQUE: Frontal and lateral views of the chest. COMPARISON: No relevant prior studies available. FINDINGS: Lungs: Unremarkable. No consolidation. Pleural space: Unremarkable. No pneumothorax. Heart: Mild cardiomegaly. Mediastinum: Unremarkable. Normal mediastinal contour. Bones/joints: Sternotomy wires. No acute fracture. Tubes, lines and devices: Pacemaker leads. IMPRESSION: No acute findings in the chest.
--- NOTE | 2024-02-02 00:49 | XR ---
EXAM: XR Right Knee, 3 Views CLINICAL HISTORY: ITS.REASON XR Reason: Injury TECHNIQUE: Three views of the right knee. COMPARISON: No relevant prior studies available. FINDINGS: Bones/joints: Diffuse osseous demineralization. Mild knee joint effusion. Severe joint space narrowing of the lateral compartment. No acute fracture or subluxation. Soft tissues: Unremarkable. Vasculature: Vascular calcifications. IMPRESSION: 1. No acute fracture or subluxation. 2. Severe joint space narrowing of the lateral compartment.
[2024-02-02] MEDS: ACET/COD 300 MG/30 MG STARTER PACK 6 TAB BTL PO STA (01:23)
[2024-02-02 01:32] VITALS: BP 120/74; PULSE 79; TEMP 97.9
== END 2024-02-02 01:32 | disposition home or self-care (01) ==
LOC: EC 22:32
DX: S89.91XA Unspecified injury of right lower leg, initial encounter (principal); M79.89 Other specified soft tissue disorders; I25.10 Atherosclerotic heart disease of native coronary artery without angina pectoris; M19.90 Unspecified osteoarthritis, unspecified site; W54.1XXA Struck by dog, initial encounter
CPT/HCPCS: 36415; 71046; 80053; 83880; 85025; 93005; 99284

== ENCOUNTER → 2024-04-30 | Outpatient (CLI) | payer MEDICARE ==
[2024-04-30 09:35] LABS: Prothrombin Time 10.6 sec (10.0-12.5)
[2024-04-30 09:36] LABS: Partial Thromboplastin Time 23.2 sec (22.0-30.0)
[2024-04-30 15:37] LABS: ALT 16 U/L (10-49); AST 17 U/L (14-35); Albumin 4.2 g/dL (3.8-4.9); Alkaline Phosphatase 71 U/L (41-126); Blood Urea Nitrogen 16.1 mg/dL (9.0-27.0); Calcium 9.5 mg/dL (8.7-10.3); Carbon Dioxide 24.9 mmol/L (21.6-31.8); Chloride 106 mmol/L (96-109); Globulin 2.8 g/dL (1.6-3.3); Glucose 169 mg/dL (70-110); Potassium 4.5 mmol/L (3.5-5.5); Sodium 142 mmol/L (135-145); Total Bilirubin 0.6 mg/dL (0.3-1.2)
[2024-04-30 16:31] LABS: HCT 47.6 % (39.6-50.0); HGB 15.4 g/dL (13.0-17.0); MCH 30.5 pg (27.0-32.0); MCHC 32.4 g/dL (32.0-37.0); MCV 94.3 FL (80.0-97.0); Mean Platelet Volume 11.1 FL (9.5-12.2); NRBC Per 100 WBC 0 X 10*3/uL (0.00-0.01); Platelet Count 248 X 10*3/uL (140-440); RBC 5.05 X 10*6/uL (4.40-5.60); RDW 13.7 % (11.5-14.5); WBC 6.89 X 10*3/uL (4.50-10.00)
== END | disposition home or self-care (01) ==
LOC: LABPAT 08:14
PROVIDERS: ATTEND Orthopaedic Surgery
DX: Z01.818 Encounter for other preprocedural examination (principal); M17.11 Unilateral primary osteoarthritis, right knee; Z22.322 Carrier or suspected carrier of Methicillin resistant Staphylococcus aureus; Z95.0 Presence of cardiac pacemaker
CPT/HCPCS: 80053; 85027; 85610; 85730; 87070; 93005

== ENCOUNTER 2024-05-07 07:29 | Day surgery (SDC) | payer MEDICARE ==
[~2024-05-07 07:29] MED LIST changes: +HYDROmorphone 0.5 MG/0.5 ML SYRINGE IVP PRN; +TRANEXAMIC 1,000 MG/100ML-NACL 1,000 MG in SALINE 1 100ML.BAG IVPB PRN; -VANCOMYCIN 1,250 MG in SODIUM CHLORIDE 0.9% 250 ML IVPB STA; -ceFAZolin 1 GM in SODIUM CHLORIDE 0.9% IRRIG BTL 250 ML IRRIGATION PRN
[2024-05-07] MEDS: MELOXICAM 7.5 MG TAB PO PRN (08:06)
[2024-05-07] MEDS: ACETAMINOPHEN TAB 500 MG TAB PO PRN (08:06)
[2024-05-07] MEDS: GABAPENTIN 300 MG CAP PO PRN (08:06)
[2024-05-07] MEDS: LACTATED RINGERS 1,000 ML IV SCH (08:15)
[2024-05-07 08:27] LABS: Glucose,Whole Blood 149 mg/dL (70-110)
[2024-05-07] MEDS: MIDAZOLAM 2 MG/2 ML VIAL IV ONE (08:30)
[2024-05-07] MEDS ORDERED: NALOXONE 0.4 MG/ML 1 ML VIAL IV PRN (08:44)
[2024-05-07] MEDS ORDERED: hydrOXYzine pamoate 25 MG CAP PO PRN (08:44)
[2024-05-07] MEDS ORDERED: MAGNESIUM HYDROXIDE 2,400 MG/30 ML CUP PO PRN (08:44)
[2024-05-07] MEDS ORDERED: bisacodyL 10 MG SUPP RECTAL PRN (08:44)
[2024-05-07] MEDS ORDERED: HYDROmorphone 0.5 MG/0.5 ML SYRINGE IVP PRN ×3 (08:44)
[2024-05-07] MEDS ORDERED: ONDANSETRON 4 MG/2 ML VIAL IVP PRN (08:44)
[2024-05-07] MEDS ORDERED: NA PHOS,M-B/NA PHOS,DI-BA 133 ML ENEMA RECTAL PRN (08:44)
[2024-05-07] MEDS: ONDANSETRON 4 MG/2 ML VIAL IVP ONE (08:45)
[2024-05-07] MEDS: DEXAMETHASONE SOD PHOSPHATE 4 MG/ML 1 ML VIAL IV ONE (08:46)
[2024-05-07] MEDS: IV FLUID CONTINUATION 1,000 ML IV ONE ×2 (08:48→11:17)
[2024-05-07] MEDS ORDERED: fentaNYL (PF) 50 MCG/ML 2 ML AMP ONE (09:13)
[2024-05-07] MEDS ORDERED: ROPIVACAINE 5 MG/ML 30 ML VIAL ONE (09:13)
[2024-05-07] MEDS ORDERED: DEXAMETHASONE SOD PHOSPHATE 4 MG/ML 1 ML VIAL ONE (09:13)
[2024-05-07] MEDS ORDERED: MIDAZOLAM 2 MG/2 ML VIAL ONE (09:13)
[2024-05-07] MEDS ORDERED: PROPOFOL 10 MG/ML 20 ML VIAL IV ONE (09:13)
[2024-05-07] MEDS ORDERED: ePHEDrine 50 MG/ML 1 ML VIAL ONE (09:13)
--- NOTE | 2024-05-07 10:35 | P.OP ---
Date of Procedure: 05/07/24 Preoperative Diagnosis: Severe osteoarthritis, right knee Postoperative Diagnosis: Severe osteoarthritis, right knee Procedure(s) Performed: Right total knee arthroplasty Implants: Pat[employer] Journey II CR Oxinium Bi-cruciate stabilized femoral component size 6, right [employer] Journey nonporous tibial baseplate size 5, right [employer] Journey II, Constrained articular insert, size 9 mm, Size 5-6, right [employer] Journey Carmen II resurfacing patellar component, oval, 35 mm All components were cemented using Palacos R bone cement The articulation is Oxinium on polyethylene Anesthesia: spinal Surgeon: Carlos Singh Skates Operator #1: Reena Mcbride Estimated Blood Loss (ml): 100 Pathology: none sent Condition: stable Disposition: PACU Indications for Procedure: The patient's knee is end-stage, and conservative management has failed. The operation of knee replacement has been discussed at length in the office, as well as potential risks and complications. These are inclusive of, but not limited to: Infection, bleeding, scarring, discomfort, stiffness, blood vessel and nerve damage, need for further surgery, failure to relieve symptoms, persistence, recurrence, or worsening of problems, loosening, dislocation, wear, blood clot, pulmonary embolism, , gait dysfunction, stiffness, and other risks as discussed in the office. Patient elects to proceed and the consent form has been signed. Operative Findings: The operative findings are consistent with severe osteoarthritis of the right knee Description of Procedure: The patient was seen in the preoperative area, the consent was reviewed and the operative site was marked with a skin marker. The patient verified the procedure and the operative site. An adductor canal pain catheter and an iPACK block were placed by anesthesia in the preoperative area. The patient was then brought to the operating room and positioned on the operating room table in the supine position. Preoperative antibiotics and a gram of tranexamic acid were given intravenously. A spinal anesthetic was administered by the anesthesia department. Care was taken to make sure that all pressure points were adequately padded. A tourniquet was placed on the upper thigh and the lower extremity was prepped with ChloraPrep and draped in usual sterile fashion. A universal time-out was then performed which confirmed the patient's name, surgical site, ALLERGIES, and consent. The lower extremity was then exsanguinated and tourniquet was inflated to 250 mmHg. A standard anterior midline approach to the knee was performed. The skin and subcutaneous tissue were sharply dissected down to the patellar tendon. A medial parapatellar arthrotomy was then performed. The knee was then extended, the patellar was everted, and the knee was flexed. The infra-patellar fat pad was removed in order to enhance exposure. The anterior horns of both menisci were excised, and a release was performed to the posterior medial aspect of the knee. On gross visual inspection, there was complete loss of articular cartilage in the medial and patellofemoral joint spaces. There was also significant cartilage damage in the lateral compartment. There were multiple periarticular osteophytes globally about the knee which were then removed with a Ronguer. The femoral canal was then opened with the 9.5 mm intramedullary drill. The 8 mm intramedullary ricardo was then inserted into the femoral canal with the distal femoral cutting guide set for 5 of valgus. The distal femoral cutting block was then pinned in place. The intramedullary ricardo was then removed, and the distal femur was then cut. The cutting block was then removed and the cut was checked for symmetry. The resected bone was then measured to confirm the appropriate distal femoral resection. Next, the sizing guide was then placed and set for 3 external rotation based off of the epicondylar axis and Mchenry's line. Pins were then placed and the drill holes, and the femur was sized with the sizing stylus. The pins were then removed, and the sizing guide was then removed. The spikes of the appropriate size femoral block was then placed into the predrilled holes, and malleted into place. Two 45 mm pins were then placed into the fixation holes on the cutting block. An kaykay wing was then used to ensure there would be no notching with the anterior cut. The anterior condyles were cut without notching. The anterior chord cut was then performed, followed by the posterior cut, posterior chamfer cut, and the anterior chamfer cut. The collateral ligaments were protected during the entire process. The cutting block was then removed. Any remaining bone and osteophytes were removed from the femur with a Ronguer. Attention was then directed to the tibia. The remaining ACL was removed with a Ronguer, and the tibia was then gently subluxed forward with a large bent knee retractor. Any remaining menisci were excised. The posterior lateral corner was cauterized in order to coagulate the lateral geniculate artery. The extra medullary tibial cutting guide was then placed, set for the appropriate rotation, slope, and depth of resection. The proximal tibia cutting guide was then pinned in place. Proximal tibia was then cut and sized. A curved osteotome was then used to remove any posterior osteophytes from the distal femur. The femoral trial was placed. The box drill guide and reamer was then used to remove the intracondylar femoral bone. The box notch trial was then placed. The tibial trial was placed with the appropriate-sized insert. The knee was able to fully extend and flex to 130 and was stable throughout all range of motion. The knee was then extended and the patella was everted. Patella was then measured, and then using an osteotomy guide, the patella was cut at the appropriate level. The patellar component was sized. The patellar drill guide was placed and the patella was drilled. The patella trial was then placed. The knee was then taken through range of motion with the patella trial and the patella tracked normally using the no thumbs technique. The patella trial was then removed. The knee was then flexed and lug holes were drilled through the femoral trial and the femoral trial was then removed. The tibial was then re- exposed, and the tibial broach guide was then pinned in place after it was set for the appropriate rotation to allow for the most coverage without overhang. The tibia was then reamed and broached. The femoral canal was plugged with autologous bone. The cut surfaces of bone were then irrigated with pulsatile lavage. The knee was also irrigated with Irrisept solution. The components were then opened, the cement was mixed. Cement was placed on the backside of the femoral, tibial, and patellar components. Cement was then applied to the tibial surface and pressurized into the surface using finger pressurization technique. The tibial component was then applied and excess cement was removed after it was impacted securely noted to be flush with the cut surface. In similar fashion, the cement was applied to the cut femoral surface, pressurized and using finger pressurization the component was impacted in place. Excess cement was removed. The polyethylene spacer was then implanted and locked into position. Patellar component was then applied in a similar technique and the patellar clamp was used to hold patella in place while the cement hardened. The knee was held in full extension while the cement hardened. Once the cement had fully hardened, the knee was reinspected. Any other cement extrusion was removed the final range of motion testing showed range of motion from 0-130 with excellent stability, both medial and laterally and appropriate alignment of the leg. Patella tracked normally. After the cemented hardened, the tourniquet was released and hemostasis was obtained. A second gram of transexamic acid was given intravenously. The knee was again irrigated. The knee was again taken through range of motion and found to be stable throughout all range of motion of 0-130, and the patella tracked n ormally. The fascia was then closed with 0 Vicryl followed by #2 strata fix suture. The subcutaneous tissue was closed with 3-0 Vicryl and 3-0 monocryl. Exofin glue was used for the skin and placed with the knee in flexion. After the glue had dried, and Optafoam silver impregnated dressing was applied. A lightly compressive dressing was applied using web roll and Eliel wrap. Patient was then transferred to the stretcher and taken to recovery room in stable condition. Sponge and needle counts were correct. The assistant women's soccer coach TONY Us was required due the complexity surgery and the need for a skilled surgical services coordinator. She assisted in positioning, draping, retraction, and closure of the wound.
[2024-05-07] MEDS: ROPIVACAINE 1,100 MG, SODIUM CHLORIDE 0.9% 500 ML 330 ML, EMPTY PAIN BALL 1 EACH MISCELLANE PRN (11:37)
--- NOTE | 2024-05-07 11:38 | XR ---
EXAMINATION TYPE: XR knee limited RT DATE OF EXAM: 05/07/2024 11:10 AM COMPARISON: 02/01/2024. CLINICAL INDICATION: Male, 68 years old with history of Evaluation for Postop abnormality and alignme nt; PHH, pain TECHNIQUE: XR knee limited RT 2 views submitted. FINDINGS: Status post total knee arthroplasty changes with hardware in appropriate alignment and in tact. No evidence of fracture. Subcutaneous lucencies and lucencies within the joint consistent with surgical changes. IMPRESSION: Status post total knee arthroplasty changes with hardware intact and appropriate alignment. No fractu res identified. [facility], , 05/07/2024 11:36 AM
[2024-05-07 11:52] LABS: Glucose,Whole Blood 157 mg/dL (70-110)
[2024-05-07] MEDS: SODIUM CHLORIDE 0.9% 1,000 ML IV SCH (12:59)
[2024-05-07] MEDS ORDERED: DEXTROSE 50% SYRINGE 50 ML IVP PRN ×2 (13:51)
[2024-05-07] MEDS: PANTOPRAZOLE 40 MG/10 ML VIAL IVP SCH (15:10)
[2024-05-07] MEDS: METOPROLOL SUCCINATE (ER) 50 MG TAB.ER.24H PO SCH (15:10)
[2024-05-07 17:07] LABS: Glucose,Whole Blood 369 mg/dL (70-110)
[2024-05-07] MEDS: INSULIN LISPRO (HumaLOG) 100 UNIT/ML 10 mL VL SQ SCH (17:12)
[2024-05-07] MEDS: SENNOSIDES-DOCUSATE SODIUM 1 EACH TAB PO SCH (19:58)
[2024-05-07] MEDS: DONEPEZIL 5 MG TAB PO SCH (19:58)
[2024-05-07] MEDS: ASPIRIN 325 MG TAB PO SCH (19:58)
[2024-05-07] MEDS: HYDROcodone/APAP 7.5-325MG 1 EACH TAB PO PRN (19:59)
[2024-05-07 20:53] LABS: Glucose,Whole Blood 332 mg/dL (70-110)
[2024-05-08] MEDS: HYDROcodone/APAP 7.5-325MG 1 EACH TAB PO PRN (01:15)
[2024-05-08 03:20] VITALS: TEMP 98.1
[2024-05-08 06:25] LABS: Glucose,Whole Blood 239 mg/dL (70-110)
--- NOTE | 2024-05-08 07:06 | P.PN ---
Progress Note - Text Progress Note Date: 05/08/24 (948) Anesthesiology Postop day 1 status post total knee arthroplasty with adductor canal catheter. Patient doing well. VAS 4 out of 10. Gross strength intact in lower extremity. Afebrile. Denies alterations in sensorium. Catheter site intact. Heart regular rate Lungs nonlabored Abdomen nondistended Assessment: Postop day 1 status post total knee arthroplasty with adductor canal catheter Plan: 1.All questions answered. Maintain catheter 2 more days with patient removal at home. Instructions to be given at discharge. 2.This note was dictated using [employer] software. Please be advised there is a potential for misspellings or errors in binder chainstitch.
[2024-05-08 08:09] VITALS: BP 107/68; PULSE 72; RESP 16
[2024-05-08 08:37] LABS: HCT 38.3 % (39.6-50.0); HGB 12.4 g/dL (13.0-17.0); MCH 30.5 pg (27.0-32.0); MCHC 32.4 g/dL (32.0-37.0); MCV 94.1 FL (80.0-97.0); Mean Platelet Volume 10.6 FL (9.5-12.2); NRBC Per 100 WBC 0 X 10*3/uL (0.00-0.01); Platelet Count 207 X 10*3/uL (140-440); RBC 4.07 X 10*6/uL (4.40-5.60); RDW 13.6 % (11.5-14.5); WBC 13.58 X 10*3/uL (4.50-10.00)
[2024-05-08 08:38] LABS: Basophils # (A) 0.02 X 10*3/uL (0.00-0.10); Basophils % (A) 0.1 %; Eosinophils # (A) 0 X 10*3/uL (0.04-0.35); Eosinophils % (A) 0 %; Lymphocytes # (A) 1.42 X 10*3/uL (0.90-5.00); Lymphocytes % (A) 10.5 %; Monocytes # (A) 1.03 X 10*3/uL (0.20-1.00); Monocytes % (A) 7.6 %; Neutrophils # (A) 11.03 X 10*3/uL (1.80-7.70); Neutrophils % (A) 81.2 %
--- NOTE | 2024-05-08 09:34 | P.DS ---
Providers Expected date of discharge: 05/08/24 Attending physician: Carlos Singh Consults: 05/07/24 08:44 Consult Physician Routine Consulting Provider: Nathan Ta Consult Reason/Comments: medical management Do you want consulting provider notified?: Yes Primary care physician: Nathan Ta - Discharge Diagnosis(es) (1) Osteoarthritis of right knee Current Visit: Yes Status: Acute (2) S/P total knee arthroplasty Current Visit: Yes Status: Acute Hospital Course: This is a 68-year-old male with known history of degenerative arthritis of the right knee. The patient presented for evaluation as an outpatient. After discussion and consideration patient elects to proceed with total knee arthroplasty. The patient is seen preoperatively by Dr. Singh and medically cleared for surgery by their primary care physician. Patient is admitted to [facility] on 05/07/2024 for total knee arthroplasty. The procedure is performed without complication or sequelae. The patient is doing well postoperatively. Labs and vital signs are stable on day o f discharge. On day of discharge patient's knee incision is healing well. There is minimal erythema. There is no drainage noted at this time. There is minimal soft tissue swelling to the knee. Patient has full foot and ankle motion without difficulty or pain. Calf is soft and nontender to palpation. Neurovascular status to the right lower extremity is intact. Patient is discharged home in good condition. Please see med rec for accurate list of home medications. Plan - Discharge Summary Discharge Rx Participant: No New Discharge Prescriptions: New Sennosides [Senokot] 2 tab PO DAILY PRN #60 tablet PRN Reason: Constipation Aspirin 325 mg PO BID #60 tab HYDROcodone/APAP 7.5-325MG [[place] 7.5-325] 1 - 2 tab PO Q6H PRN #32 tab PRN Reason: Pain No Action Aspirin EC [Ecotrin Low Dose] 81 mg PO DAILY #30 tablet. Ezetimibe [Zetia] 10 mg PO DAILY lisinopriL [Zestril] 5 mg PO DAILY Metoprolol Succinate [Toprol XL] 50 mg PO DAILY #90 tab Insulin Glargine/Lixisenatide [[place] 100 Unit-33 Mcg/ml Pen] 45 units SQ DAILY metFORMIN HCL [Glucophage] 500 mg PO BID Pioglitazone [Actos] 15 mg PO DAILY Dapagliflozin Propanediol [Farxiga] 5 mg PO DAILY Donepezil [Aricept] 5 mg PO HS Rosuvastatin [Crestor] 10 mg PO DAILY Discharge Medication List Aspirin EC [Ecotrin Low Dose] 81 mg PO DAILY #30 tablet. 02/09/18 [Rx] Ezetimibe [Zetia] 10 mg PO DAILY 12/12/19 [History] Dapagliflozin Propanediol [Farxiga] 5 mg PO DAILY 11/22/22 [History] Donepezil [Aricept] 5 mg PO HS 11/22/22 [History] Pioglitazone [Actos] 15 mg PO DAILY 11/22/22 [History] lisinopriL [Zestril] 5 mg PO DAILY 11/22/22 [History] metFORMIN HCL [Glucophage] 500 mg PO BID 11/22/22 [History] Metoprolol Succinate [Toprol XL] 50 mg PO DAILY #90 tab 12/16/22 [Rx] Insulin Glargine/Lixisenatide [[place] 100 Unit-33 Mcg/ml Pen] 45 units SQ DAILY 05/02/24 [History] Rosuvastatin [Crestor] 10 mg PO DAILY 05/02/24 [History] Aspirin 325 mg PO BID #60 tab 05/07/24 [Rx] HYDROcodone/APAP 7.5-325MG [[place] 7.5-325] 1 - 2 tab PO Q6H PRN #32 tab 05/07/24 [Rx] Sennosides [Senokot] 2 tab PO DAILY PRN #60 tablet 05/07/24 [Rx] Follow up Appointment(s)/Referral(s): Nathan Ta DO [Primary Care Provider] - 1 Week Carlos Singh DO [Doctor of Osteopathic Medicine] - 2 Weeks Activity/Diet/Wound Care/Special Instructions: homecare not picked by patient per office. Weightbearing as tolerated with a walker. Leave dressing intact. Dressing may be removed by home care nurse or by patient in 7 days. Then change dressing twice daily until follow up. May shower with initial dressing intact and after removal. If dressing become saturated, please remove. Recommend use of compression stockings daily until follow up to help prevent swelling and blood clots. May remove at night before sleeping. Please take aspirin 325mg twice daily for 30 days to prevent blood clots. Please follow up with [facility] and call with any questions or concerns, . Discharge Disposition: HOME WITH HOME HEALTH SERVICES
[2024-05-08] MEDS: DAPAGLIFLOZIN PROPANEDIOL 5 MG TABLET PO SCH (09:40)
[2024-05-08] MEDS: INSULIN GLARGINE (LANTUS) 100 UNIT/ML SYR SQ SCH (10:22)
--- NOTE | 2024-05-08 10:28 | P.CONS ---
History of Present Illness - Reason for Consult Consult date: 05/08/24 Medical management Requesting physician: Carlos Singh - Chief Complaint OA right knee, status post OR - History of Present Illness This is a pleasant 68-year-old gentleman with past medical history significant for CAD, ND, CABG, sick sinus syndrome, permanent pacemaker, hypertension, hyperlipidemia diabetes mellitus, obesity, sleep apnea wears CPAP, CVA/TIA and multiple other medical issues status post right total knee arthroplasty secondary to osteoarthritis. Tolerated procedure well. Completed steps with physical therapy. Ambulating in room with walker. Elevated blood sugars, Lantus ordered in addition to sliding scale. Hemoglobin A1c 8.6-states that is an improvement from his A1c- 2 checks ago last summer was 13. Hemoglobin 12.4 postoperative,decreased from preop 15.4, expected outcome. Denies chest pain, palpitations or shortness of breath. Maintaining O2 sats of 94% on room air, incentive spirometer 3000. Reports pain controlled. Passing flatus, no bowel movement. Spontaneously voiding without difficulty. Positive diet intake with no nausea vomiting or diarrhea. Review of Systems Constitutional: Denied any fatigue denied any fever. Cardio vascular: denied any chest pain, palpitations Gastrointestinal denied any nausea vomiting Pulmonary: Denied any shortness of breath cough Neurologic denied any new focal deficits ROS Statement: Those systems with pertinent positive or pertinent negative responses have been documented in the HPI. ROS Other: All systems not noted in ROS Statement are negative. Past Medical History Past Medical History: Coronary Artery Disease (CAD), CVA/TIA, Diabetes Mellitus, Hyperlipidemia, Hypertension, Myocardial Infarction (ND), Osteoarthritis (OA), Skin Disorder, Sleep Apnea/CPAP/BIPAP Additional Past Medical History / Comment(s): stroke -no residual effects, no cpap used, hx hiatal hernia, eczema Last Myocardial Infarction Date:: 2006 History of Any Multi-Drug Resistant Organisms: None Reported Past Surgical History: Coronary Bypass/CABG, Heart Catheterization, Hernia Repair, Joint Replacement, Orthopedic Surgery, Pacemaker, Tonsillectomy Additional Past Surgical History / Comment(s): nicki total hip replacement, nicki carpal tunnel, arthroscopy rt knee, hemorrhoidectomy, triple bypass 2006, zora fundoplasty, deviated septum repair, TEMP. PACEMAKER 12/02/22, PPM 12/30 Past Anesthesia/Blood Transfusion Reactions: Previous Problems w/ Anesthesia Additional Past Anesthesia/Blood Transfusion Reaction / Comm: some kind of problem w/ extubation w/cabg(MPH)-stated had trouble have breathing tube removed after surgery - "I was in a coma for 9 days and they were going to do a trach but I got extubated that day.", but has had general anesthesia since w/no problems Type of Cardiac Device: Permanent Pacemaker Device Placement Date:: 12/2022 Past Psychological History: No Psychological Hx Reported Smoking Status: Never smoker Past Alcohol Use History: None Reported Past Drug Use History: None Reported - Past Family History Mother Family Medical History: Cancer Brother(s) Family Medical History: Cancer Additional Family Medical History / Comment(s): prostate Medications and Allergies Home Medications Medication Instructions Recorded Confirmed Type Ezetimibe [Zetia] 10 mg PO DAILY 12/12/19 05/07/24 History Dapagliflozin Propanediol [Farxiga] 5 mg PO DAILY 11/22/22 05/07/24 History Donepezil [Aricept] 5 mg PO HS 11/22/22 05/07/24 History Pioglitazone [Actos] 15 mg PO DAILY 11/22/22 05/07/24 History lisinopriL [Zestril] 5 mg PO DAILY 11/22/22 05/07/24 History metFORMIN HCL [Glucophage] 500 mg PO BID 11/22/22 05/07/24 History Metoprolol Succinate [Toprol XL] 50 mg PO DAILY #90 tab 12/16/22 05/07/24 Rx Insulin Glargine/Lixisenatide 45 units SQ DAILY 05/02/24 05/07/24 History [[place]iqua 100 Unit-33 Mcg/ml Pen] Rosuvastatin [Crestor] 10 mg PO DAILY 05/02/24 05/07/24 History Aspirin 325 mg PO BID #60 tab 05/07/24 Rx HYDROcodone/APAP 7.5-325MG [[place] 1 - 2 tab PO Q6H PRN #32 tab 05/07/24 Rx 7.5-325] Sennosides [Senokot] 2 tab PO DAILY PRN #60 tablet 05/07/24 Rx Aspirin EC [Ecotrin Low Dose] 81 mg PO DAILY #30 05/08/24 05/07/24 Rx Famotidine [Pepcid] 20 mg PO BID #60 tablet 05/08/24 Rx Allergies Allergy/AdvReac Type Severity Reaction Status Date / Time No Known Allergies Allergy Verified 05/07/24 07:54 Physical Exam Vitals: Vital Signs Temp Pulse Resp BP Pulse Ox 05/08/24 08:00 98.1 F 72 16 107/68 94 L 05/08/24 01:18 98.1 F 78 18 117/74 91 L 05/07/24 19:36 97.7 F 84 18 152/90 92 L 05/07/24 14:00 97.6 F 84 17 104/69 94 L 05/07/24 12:15 70 16 123/78 95 05/07/24 12:00 72 16 123/81 95 05/07/24 11:45 73 16 111/74 97 05/07/24 11:30 72 16 109/66 97 05/07/24 11:15 70 16 104/66 97 05/07/24 11:00 72 16 102/61 100 05/07/24 10:52 97.2 F L 77 16 104/61 100 Intake and Output 05/07/24 05/08/24 05/08/24 22:59 06:59 14:59 Other: Voiding Method Toilet # Voids 3 Weight 94.8 kg PHYSICAL EXAM: VITAL SIGNS: [Reviewed] GENERAL: Alert and oriented x 3, sitting up in bed, no acute distress HEENT: Normocephalic, atraumatic ,conjunctivae normal. eyes normal. MMM. NECK: Supple, no JVD. No thyroid enlargement. No LNs CARDIOVASCULAR: S1, S2 regular. No murmur RESPIRATION: Unlabored, equal air entry, clear to auscultation . ABDOMEN: Soft, nondistended, nontender . No guarding. no masses palpable. No ascites, No hepatosplenomegaly.+BS LEGS: Right lower extremity dressing clean dry and intact minimal edema. No calf tenderness, positive DP pulse. NERVOUS SYSTEM: Cranial N 2-12 grossly normal. Moves all 4 limbs. No focal deficits. Strength and sensation grossly intact. Skin: Warm and dry, no rash Results CBC & Chem 7: 05/08/24 03:21 Labs: Abnormal Lab Results - Last 24 Hours (Table) 05/07/24 05/07/24 05/07/24 Range/Units 11:47 17:06 20:51 WBC (4.50-10.00) X 10*3/uL RBC (4.40-5.60) X 10*6/uL Hgb (13.0-17.0) g/dL Hct (39.6-50.0) % Immature Gran # (0.00-0.04) X 10*3/uL Neutrophils # (1.80-7.70) X 10*3/uL Monocytes # (0.20-1.00) X 10*3/uL Eosinophils # (0.04-0.35) X 10*3/uL POC Glucose (mg/dL) 157 H 369 H 332 H (70-110) mg/dL Hemoglobin A1c (<=6.0) % 05/08/24 05/08/24 05/08/24 Range/Units 03:21 03:21 06:23 WBC 13.58 H (4.50-10.00) X 10*3/uL RBC 4.07 L (4.40-5.60) X 10*6/uL Hgb 12.4 L (13.0-17.0) g/dL Hct 38.3 L (39.6-50.0) % Immature Gran # 0.08 H (0.00-0.04) X 10*3/uL Neutrophils # 11.03 H (1.80-7.70) X 10*3/uL Monocytes # 1.03 H (0.20-1.00) X 10*3/uL Eosinophils # 0 L (0.04-0.35) X 10*3/uL POC Glucose (mg/dL) 239 H (70-110) mg/dL Hemoglobin A1c 8.6 H (<=6.0) % Assessment and Plan Assessment: Right knee osteoarthritis, status post total knee arthroplasty Postoperative anemia, expected outcome, asymptomatic Diabetes mellitus, A1c 8.6, hyperglycemic, further diabetic education in clinic with PCP. Obstructive sleep apnea, wears CPAP CAD, history of ND, CABG Permanent pacemaker, history of sick sinus syndrome Hypertension Hyperlipidemia History of CVA, TIA Morbid obesity, BMI 34 Plan: Continue on current medication regime ,monitoring and symptomatic treatment. Discharge planning in progress as per orthopedic surgery. Maintain aggressive pulmonary toileting with incentive spirometer reinforced. DVT prophylaxis and pain management as per primary. Follow-up with PCP in 1 week. Thank you for allowing us to participate in the care of this patient. The impression and plan of care has been dictated as directed. : I performed a history and examination of this patient, discussed the same with the dictator. I agree with the dictator's note ,documented as a scribe. Any additional findings or plans will be noted.
--- NOTE | 2024-05-08 15:47 | P.ANPRN ---
Procedure Note - Anesthesia - Nerve Block Performed Right Adductor Canal Infusion Time Out Performed: Yes Date of Procedure: 05/07/24 Procedure Start Time: : Procedure Stop Time: 08:36 Location of Patient: PreOp Indication: Acute Post-Operative Pain, Requested by Surgeon Sedation Type: Sedate with meaningful contact maintained Preparation: Sterile Prep, Sterile Dressing Position: Supine Catheter: Indwelling Needle Types: Pajunk Needle Gauge: 21 Ultrasound used to visualize needle placement: Yes Ultrasound used to observe medication spread: Yes Blood Aspirated: No Pain Paresthesia on Injection Noted: No Resistance on Injection: Normal Image Stored and Saved: Yes Events: Uneventful and Well Tolerated (Ropivacaine 0.5% 20 cc was dexamethasone 4 mg)
--- NOTE | 2024-05-08 15:48 | P.ANPRN ---
Procedure Note - Anesthesia - Nerve Block Performed Right Ernesto Single Time Out Performed: Yes Date of Procedure: 05/07/24 Procedure Start Time: 08:37 Procedure Stop Time: 08:40 Location of Patient: PreOp Indication: Acute Post-Operative Pain, Requested by Surgeon Sedation Type: Sedate with meaningful contact maintained Preparation: Sterile Prep Position: Left Lateral Needle Types: Pajunk Needle Gauge: 21 Ultrasound used to visualize needle placement: Yes Ultrasound used to observe medication spread: Yes Blood Aspirated: No Pain Paresthesia on Injection Noted: No Resistance on Injection: Normal Image Stored and Saved: Yes Events: Uneventful and Well Tolerated (Ropivacaine 0.5% 20 cc plus dexamethasone 4 mg)
[2024-05-09] MEDS ORDERED: INSULIN GLARGINE (LANTUS) 100 UNIT/ML SYR SQ SCH (07:00)
== END 2024-05-08 10:58 | disposition home health service (06) ==
LOC: OR 07:29 → 4SSUR 10:52 → OR 05-08 10:58
PROVIDERS: ATTEND Orthopaedic Surgery
DX: M17.11 Unilateral primary osteoarthritis, right knee (principal); I25.10 Atherosclerotic heart disease of native coronary artery without angina pectoris; I25.2 Old myocardial infarction; I10 Essential (primary) hypertension; E78.5 Hyperlipidemia, unspecified; E11.65 Type 2 diabetes mellitus with hyperglycemia; Z86.73 Personal history of transient ischemic attack (TIA), and cerebral infarction without residual deficits; Z96.651 Presence of right artificial knee joint; Z98.890 Other specified postprocedural states; Z95.0 Presence of cardiac pacemaker; Z95.1 Presence of aortocoronary bypass graft; Z90.89 Acquired absence of other organs; Z79.84 Long term (current) use of oral hypoglycemic drugs; Z79.4 Long term (current) use of insulin; Z79.82 Long term (current) use of aspirin; Z79.899 Other long term (current) drug therapy
CPT/HCPCS: 97161; 64448; 64474; 85025; 83036; 73560; 27447; C1713; C1776; C1751; J2250; J1100; J0690 ×2; J2405; J2795; J2470 ×2